=== PATIENT | male | born 1940 | race Caucasian/White ===

== ENCOUNTER 2018-11-11 02:40 | Inpatient (IN) | payer MEDICARE, BC ==
[~2018-11-11] VITALS: Ht 165.1 cm; Wt 59.1 kg
[2018-11-11] VITALS (18 sets, daily range): BP systolic 103–137; BP diastolic 44–85; Ht 165.1 cm; Wt 59.1 kg
[2018-11-11] MEDS ORDERED: COENZYME Q10100 MG PO (02:47)
[2018-11-11] MEDS ORDERED: LASIX80 MG PO (02:47)
[2018-11-11] MEDS ORDERED: HUMALOG 30100 UNITS/ SC (02:48)
[2018-11-11] MEDS ORDERED: NEURONTIN 300300 MG PO (02:48)
[2018-11-11] MEDS ORDERED: HYDRALAZINE HCL25 MG PO (02:49)
[2018-11-11] MEDS ORDERED: HYDROCODON-ACE1 EAC7 PO (02:49)
[2018-11-11] MEDS ORDERED: LANTUS INSULIN10 ML SC (02:49)
[2018-11-11] MEDS ORDERED: ISOSORBIDE DINI30 MG PO (02:50)
[2018-11-11] MEDS ORDERED: MEGACE400 MG/10 PO (02:50)
[2018-11-11] MEDS ORDERED: FLOMAX0.4 MG PO (02:52)
[2018-11-11] MEDS ORDERED: TOPROL XL100 MG PO (02:52)
[2018-11-11] MEDS ORDERED: PROTONIX40 MG PO (02:52)
[2018-11-11] MEDS ORDERED: COUMADIN2 MG (02:52)
[2018-11-11 03:21] LABS: HEMATOCRIT 29.2 % (42.0-54.0); HEMOGLOBIN 8.9 g/dL (13.5-17.5); MCH 29.4 pg (26.0-34.0); MCHC 30.5 g/dL (31.0-37.0); MCV 96.4 fL (80.0-100.0); MEAN PLATELET VOLUME 9.8 fL (7.4-10.4); PLATELET COUNT 216 10x3/uL (130-400); RBC 3.03 10x6/uL (4.20-6.10); RDW 18.8 % (11.5-14.5); WBC 20.5 10x3/uL (4.8-10.8)
[2018-11-11 03:34] LABS: APPEARANCE CLOUDY (CLEAR); COLOR YELLOW (YELLOW)
[2018-11-11 03:35] LABS: BACTERIA MODERATE /hpf (NONE SEEN); BILIRUBIN NEGATIVE (NEGATIVE); EPITHELIAL CELLS NSEEN /hpf (0-5); GLUCOSE NEGATIVE (NEGATIVE); KETONE NEGATIVE (NEGATIVE); NITRITE NEGATIVE (NEGATIVE); PROTEIN 1+ mg/dL (NEGATIVE); RED CELLS - URINE 0-5 /hpf (0-5); SPECIFIC GRAVITY 1.015 (1.005-1.020); UROBILINOGEN NORMAL (NORMAL); WHITE CELLS - URINE >50 /hpf (0-5)
[2018-11-11 03:44] LABS: ALBUMIN 2.5 g/dL (3.4-5.0); ALKALINE PHOSPHATASE 217 U/L (46-116); ALT (SGPT) 22 U/L (10-68); BILIRUBIN - TOTAL 0.67 mg/dL (0.2-1.3); CALC OSMOLALITY 291 mosm/kg (275-300); CALCIUM 8.8 mg/dL (8.5-10.1); CARBON DIOXIDE 28.1 mmol/L (21.0-32.0); CHLORIDE - SERUM 100 mmol/L (98-107); CREATININE - SERUM 2.4 mg/dL (0.6-1.3); GLUCOSE 187 mg/dL (74-106); POTASSIUM - SERUM 4.7 mmol/L (3.5-5.1); PROTEIN - SERUM 6.7 g/dL (6.4-8.2); SODIUM 137 mmol/L (136-145); UREA NITROGEN 48 mg/dL (7-18); eGFR NON AFRICAN AMERICAN 28 mL/min (90-120)
[2018-11-11 03:45] LABS: LYMPHOCYTES 4 % (15-50); MONOCYTES 7 % (2-11); NEUTROPHILS 85 % (40-80); PLATELET ESTIMATE NORMAL
[2018-11-11 03:46] LABS: KETONE - SERUM NEGATIVE (NEGATIVE)
[2018-11-11 03:48] LABS: CKMB 2.5 U/L (0.0-3.6); CREATINE KINASE 33 UL (21-232); MAGNESIUM - SERUM 2.3 mg/dL (1.8-2.4)
[2018-11-11 03:50] LABS: PRO BNP 46691 pg/mL (0-450)
[2018-11-11 03:56] LABS: TROPONIN-I 0.116 ng/mL (0.000-0.060)
--- NOTE | 2018-11-11 04:30 | NUR ---
PT ATTEMPTED TO GET UP. FOUND SITTING IN ROLLING CHAIR JULIO TUBING STRETCHED. 0 DRAINAGE AND DISPLACED. REPLACED JULIO. SMALL AMOUNT OF URINARY OUTPUT
--- NOTE | 2018-11-11 07:15 | NUR ---
ADMITTED FROM ER PER STRETCHER. TRANSFERED TO BED PER STAFF. AWAKE, DOES REMEMBER WHEN HE HAD DIALYSIS. SKIN WARM AND DRY. RIGHT [facility]YS[facility] CATH DRESSING DRY AND INTACT. SALINE LOCKED. RIGHT WRIST IV INFUSING WITH ABT. DENIES PAIN. PACEMAKER NOTED ON LEFT CHEST. MONITOR PACER RHYTHM. JULIO CATH PATENT. OXYGEN MASK ON AT 15 LITERS. NO DISTRESS NOTED. LOWER LEGS DEEP RED COLOR. GNENERALIZED EDEMA ALL OVER NOTED. COCCYX 1 CM OPEN AREA NOTED WITH REDNESS NOTED. MEDIPLEX PLACED
[2018-11-11 07:43] LABS: % SATURATION 12 % (15-55); IRON 18 ug/dl (35-150); TOTAL IRON BIND CAPACITY 145 ug/dl (260-445); UNSAT IRON BIND CAPACITY 127 ug/dl (150-375)
[2018-11-11 07:45] LABS: INR 3.15 (0.85-1.17); PROTIME 31.6 SECONDS (11.6-15.0)
--- NOTE | 2018-11-11 09:15 | NUR ---
TO CT SCAN PER BED WITH NURSE.
[2018-11-11 09:21] LABS: CREATINE KINASE 80 UL (21-232)
--- NOTE | 2018-11-11 09:30 | NUR ---
RETURNED TO ROOM. DID COMPLAINT OF SHORTNESS OF BREATH FROM LAYING FLAT IN CT SCAN
--- NOTE | 2018-11-11 10:30 | NUR ---
VENOUS DOPPLER AND ECHO COMPLETED
--- NOTE | 2018-11-11 12:30 | NUR ---
Meal given, meds as ordered. Echo complete. Denies needs at this time. Asking about but otherwise no changes. Cont with poc.
--- NOTE | 2018-11-11 14:41 | NUR ---
New IV to left upper arm started. Family in room. Pt denies needs.
[2018-11-11 15:17] LABS: CKMB 2.4 U/L (0.0-3.6); CREATINE KINASE 43 UL (21-232)
[2018-11-11 15:18] LABS: TROPONIN-I 0.078 ng/mL (0.000-0.060)
--- NOTE | 2018-11-11 18:01 | NUR ---
medications given. Pt denies needs. cont with poc
--- NOTE | 2018-11-11 19:15 | NUR ---
REPORT RECEIVED INITIAL ASSESSMENT COMPLETE. PT ASKING TO GET OOB C/O BED BEING UNCOMFORTABLE. INFORMED PT NOT SAFE AT THIS TIME TO GET OOB SECONDARY TO RESP DISTRESS AND SOB WITH EXERTION. ALSO INFORMED NURSE WAS ON WAY TO DIALYZE NEXT. REPOSITIONED PT UP IN BED AND PILLOWS PLACED PT NOT HAPPY UNABLE TO GET OOB BUT DID SAY REPOSITIONING DID HELP.
[2018-11-11 20:11] LABS: CKMB 2.9 U/L (0.0-3.6); CREATINE KINASE 41 UL (21-232)
[2018-11-11 20:14] LABS: TROPONIN-I 0.084 ng/mL (0.000-0.060)
--- NOTE | 2018-11-11 20:15 | NUR ---
LAB CALLED TROPONIN LEVEL SLIGHTLY HIGHER THAN PREVIOUS SEE LAB RESULTS PAGED DR MIN CARDIOLOGY SPORTS MANAGER. INFORMED OF INCREASE HE STATED NO NEED TO DO ANY FURTHER CARDIAC ENZYME LEVELS NO OTHER ORDERS AT THIS TIME. WHEN CHECKED ORDERS THAT WAS THE LAST OF SERIES.
--- NOTE | 2018-11-11 21:36 | NUR ---
PT MEDICATED WITH PRN PAIN MED SEE EMAR C/O PAIN TO LEGS AND FEET, ELEVATED HEELS OFF TO RELIEVE PRESSURE
--- NOTE | 2018-11-11 22:20 | NUR ---
DIALYSIS COMPLETE PER HD NURSE PULLED 2 LITERS OFF PT TOLERTED WELL. LASIX DUE NOW WAS HELD SINCE DIALYSIS JUST COMPLETED. PRN MED EFFECTIVE PT RESTING QUIETLY WITH EYES CLOSED
--- NOTE | 2018-11-11 22:45 | NUR ---
PAIN MED EFFECTIVE PT STATES IT HELPED
--- NOTE | 2018-11-11 23:00 | NUR ---
REASSESSMENT COMPLETED. PT ORIENTED TO PERSON AND PLACE NOT TIME AND SITUATION AT REST NOT SOB BUT WITH TALKING FOR ANY LENGTH OF TIME OR WITH TURNING DOES BECOME WINDED AND SATS HAVE DROPPED TO 88-92%. COMES BACK UP QUICKLY AFTER REMINDING PT TO BREATHE SLOW AND DEEP.
[2018-11-12] VITALS (18 sets, daily range): BP systolic 79–141; BP diastolic 50–70
--- NOTE | 2018-11-12 01:00 | NUR ---
CHECKED IN ON PATIENT RESTING QUIETLY WITH EYES CLOSED NO DISTRESS NOTED CPOC
--- NOTE | 2018-11-12 03:00 | NUR ---
REASSESSMENT CONPLETE PT C/O BEING COLD TEMP NORMAL WARM BLANKET FROM WARMER GIVEN PT DENIES PAIN SAYS PAIN PILL HELPED EARLIER. NO CP OR SOB AT REST. CPOC
[2018-11-12 03:40] LABS: BASOPHILS 0.1 % (0-2); EOSINOPHILS 0.6 % (0-7); HEMATOCRIT 29.3 % (42.0-54.0); IMMATURE GRANULOCYTES 0.4 % (0-5); LYMPHOCYTES 4.2 % (15-50); MCH 29.7 pg (26.0-34.0); MCHC 30.7 g/dL (31.0-37.0); MCV 96.7 fL (80.0-100.0); MEAN PLATELET VOLUME 9.5 fL (7.4-10.4); NEUTROPHILS 85.7 % (40-80); PLATELET COUNT 215 10x3/uL (130-400); RBC 3.03 10x6/uL (4.20-6.10); RDW 18.7 % (11.5-14.5); WBC 18.3 10x3/uL (4.8-10.8)
[2018-11-12 03:50] LABS: ANION GAP 11.5 mmol/L (8-16); CALCIUM 8.6 mg/dL (8.5-10.1); CREATININE - SERUM 2.1 mg/dL (0.6-1.3); POTASSIUM - SERUM 4.5 mmol/L (3.5-5.1)
--- NOTE | 2018-11-12 04:41 | NUR ---
PT CALLING FOR NURSE ASKING FOR PAIN PILL HIS BACK AND LEGS ARE HURTING MEDICATED WITH PRN MED SEE EMAR
--- NOTE | 2018-11-12 05:42 | NUR ---
MARINO HUMPHREY RENAL HEALTH AND WELLNESS MANAGER ROUNDING ON PTS.
--- NOTE | 2018-11-12 08:01 | NUR ---
Received patient. VSS. Assessment complete. Reposition for comfort. Up in bed eating breakfast. Cont with poc
--- NOTE | 2018-11-12 10:07 | NUR ---
Patient resting queitly. VSS. No changes in assessment . Cont with poc
[2018-11-12 11:06] LABS: INR 2.97 (0.85-1.17); PROTIME 30.1 SECONDS (11.6-15.0)
--- NOTE | 2018-11-12 16:25 | NUR ---
Report given to Alyssa Stahl. Pt transferred to the floor via bed with family at side.
--- NOTE | 2018-11-12 16:45 | NUR ---
RECEIVED PT FROM ICU. PT IS AAO AND UP WITH ASSIST. FAMILY AT BEDSIDE. PT CURRENTLY LYING SEMI FOWLERS. CALL LIGHT W/I REACH. RR EVEN AND UNLABORED ON 3L HIGH FLOW NC. L.FOR PIV IS SALINE LOCKED. VSS AND WNL. NO S/S OF DISTRESS NOTED. PT DENIES ANY NEEDS AT THIS TIME. WILL CTM.
--- NOTE | 2018-11-12 18:16 | NUR ---
PT ASSSITED ON AND OFF BEDPAN WHERE PT WAS UNSUCCESSFUL IN HAVING A BM. MEPILEX DRESSING TO COCCYX IN PLACE. MERREM CURRENTLY INFUSING VIA L.FOR PIV. RR EVEN AND UNLABORED ON 3. NO S/S OF DISTRESS NOTED. PT DENIES ANY NEEDS AT THIS TIME. WILL PASS REPORT AND CONTINUE WITH POC.
--- NOTE | 2018-11-12 21:30 | NUR ---
PT FSBS 75 ORANGE JUICE AND COFFEE PROVIDED VA PT REQUEST. WILL CTM.
--- NOTE | 2018-11-13 00:12 | NUR ---
PT C/O PAIN IN ABDOMEN. REPOSITION PT AND ADMINISTER NORCO-5. PT VOICED THANKS. WILL CTM.
[2018-11-13 03:43] VITALS: BP 117/43
--- NOTE | 2018-11-13 05:09 | NUR ---
HELP PT SIT UP IN ON EDGE OF THE BED, PT STATES IT HELPS RELIEVE PRESSURE OFF HIS ABDOMEN. WILL CPOC.
[2018-11-13 05:57] LABS: BASOPHILS 0.1 % (0-2); EOSINOPHILS 0.9 % (0-7); HEMATOCRIT 28.3 % (42.0-54.0); HEMOGLOBIN 8.7 g/dL (13.5-17.5); IMMATURE GRANULOCYTES 0.4 % (0-5); LYMPHOCYTES 4.2 % (15-50); MCH 29.7 pg (26.0-34.0); MCHC 30.7 g/dL (31.0-37.0); MCV 96.6 fL (80.0-100.0); MEAN PLATELET VOLUME 9.7 fL (7.4-10.4); MONOCYTES 9.5 % (2-11); NEUTROPHILS 84.9 % (40-80); PLATELET COUNT 198 10x3/uL (130-400); RBC 2.93 10x6/uL (4.20-6.10); RDW 18.6 % (11.5-14.5); WBC 16.3 10x3/uL (4.8-10.8)
[2018-11-13 07:38] VITALS: BP 109/46
[2018-11-13 07:55] LABS: ANION GAP 16.7 mmol/L (8-16); CALCIUM 8.4 mg/dL (8.5-10.1); CARBON DIOXIDE 23.5 mmol/L (21.0-32.0)
[2018-11-13 07:57] LABS: CREATININE - SERUM 2.8 mg/dL (0.6-1.3)
[2018-11-13 07:58] LABS: POTASSIUM - SERUM 5.2 mmol/L (3.5-5.1)
--- NOTE | 2018-11-13 09:52 | NUR ---
Nutrition follow-up: Pt receiving an ADA diet PO intake 75-90% of meals Pt with ESRD Labs reviewed; K is now high Wt: 166# +BM RDN changing diet order to Renal ADA consistent CHO due to elevated K. RDN following.
[2018-11-13 11:56] VITALS: BP 137/63
--- NOTE | 2018-11-13 16:00 | NUR ---
SLEEPING IN BED. NO SIGNS OF DISTRESS. RESPIRATIONS NONLABORED. SINUS RHYTHM BBB 94 ON TELEMETRY. CONTINUE PLAN OF CARE AND SAFETY PRECAUTIONS.
[2018-11-13 16:14] VITALS: BP 126/56
--- NOTE | 2018-11-13 19:05 | NUR ---
PT SITTING UP AND TOLERATING WELL. LUNGS ARE DEMINISHED. SKIN WARM AND DRY AND BOWEL SOUNDS X4 FLUIDS TO LEFT FA...SALINE LOCKED AT THIS TIME. BED IS LOWM AND LOCKED...CALL LIGHT IS IN REACH
[2018-11-13 20:00] VITALS: BP 111/48
[2018-11-14] VITALS: BP 127/61
[2018-11-14 04:00] VITALS: BP 125/64
[2018-11-14 06:34] LABS: ANION GAP 18.6 mmol/L (8-16); CALCIUM 8.2 mg/dL (8.5-10.1); CARBON DIOXIDE 24.8 mmol/L (21.0-32.0); CREATININE - SERUM 3.1 mg/dL (0.6-1.3); POTASSIUM - SERUM 5.4 mmol/L (3.5-5.1)
[2018-11-14 06:52] LABS: BASOPHILS 0.1 % (0-2); EOSINOPHILS 1.6 % (0-7); HEMATOCRIT 27.9 % (42.0-54.0); HEMOGLOBIN 8.6 g/dL (13.5-17.5); IMMATURE GRANULOCYTES 0.3 % (0-5); LYMPHOCYTES 9.6 % (15-50); MCH 29.5 pg (26.0-34.0); MCHC 30.8 g/dL (31.0-37.0); MCV 95.5 fL (80.0-100.0); MEAN PLATELET VOLUME 9.7 fL (7.4-10.4); MONOCYTES 6.4 % (2-11); PLATELET COUNT 222 10x3/uL (130-400); RBC 2.92 10x6/uL (4.20-6.10); RDW 18.3 % (11.5-14.5); WBC 13.4 10x3/uL (4.8-10.8)
[2018-11-14 07:54] VITALS: BP 128/57
[2018-11-14 17:02] VITALS: BP 110/48
--- NOTE | 2018-11-14 17:10 | NUR ---
ALERT AND ORIENTED X4. ASSIST UP OOB TO CHAIR FOR DINNER. SINUS TACH WITH PACED BEATS ON TELEMETRY 104. VS STABLE. DENIES ANY NEEDS AT THIS TIME. CONTINUE PLAN OF CARE AND SAFETY PRECAUTIONS.
--- NOTE | 2018-11-14 19:00 | NUR ---
AWAKE AND ALERT JULIO TO GRAVITY IV TO LEFT FA SL BED IS LOW AND LOCKED AND CALL LIGHT IS IN REACH SKIN WARM AND DRY BOWEL SOUNDS X4 PRT REPORTS SEVERAL BMS TODAY
[2018-11-14 20:00] VITALS: BP 112/48
[2018-11-15] VITALS: BP 110/46
--- NOTE | 2018-11-15 02:37 | NUR ---
I have reviewed this patient and I concur with the Shift Assessment completed by the Licensed Practical Nurse today this shift.
[2018-11-15 04:00] VITALS: BP 105/49
[2018-11-15 05:21] LABS: BASOPHILS 0.1 % (0-2); EOSINOPHILS 1.6 % (0-7); HEMATOCRIT 25.7 % (42.0-54.0); IMMATURE GRANULOCYTES 0.4 % (0-5); LYMPHOCYTES 10.5 % (15-50); MCH 29.5 pg (26.0-34.0); MCHC 31.1 g/dL (31.0-37.0); MCV 94.8 fL (80.0-100.0); MEAN PLATELET VOLUME 9.5 fL (7.4-10.4); MONOCYTES 8.4 % (2-11); RBC 2.71 10x6/uL (4.20-6.10); RDW 18.2 % (11.5-14.5); WBC 12.9 10x3/uL (4.8-10.8)
[2018-11-15 05:52] LABS: ANION GAP 11.7 mmol/L (8-16); CALCIUM 8.2 mg/dL (8.5-10.1); CARBON DIOXIDE 27.4 mmol/L (21.0-32.0); CREATININE - SERUM 2.6 mg/dL (0.6-1.3); VANCOMYCIN - TROUGH 15.2 ug/mL (10.0-20.0)
[2018-11-15 05:58] LABS: PLATELET COUNT 177 10x3/uL (130-400)
[2018-11-15 06:06] LABS: POTASSIUM - SERUM 4.1 mmol/L (3.5-5.1)
--- NOTE | 2018-11-15 07:51 | NUR ---
REPORT RECEIVED. WILL CONTINUE WITH POC. PT CURRENTLY SITTING UP IN CHAIR. CALL LIGHT W/I REACH. PT IS AAO AND UP WITH ASSIST. RR EVEN AND UNLABORED ON 3L HIGH FLOW NC. L.HAND PIV IS SALINE LOCKED. NO S/S OF DISTRESS NOTED. PT DENIES ANY NEEDS. WILL CTM.
[2018-11-15 08:07] VITALS: BP 110/45
[2018-11-15 08:14] LABS: HEPATITIS C ANTIBODY <0.1 S/CO RAT (0.0-0.9)
--- NOTE | 2018-11-15 11:04 | MORECARE ---
CASE MANAGEMENT DISCHARGE SUMMARY PATIENT: DEEPALI FENG UNIT: [id number] ADM DATE: 11/11/18 AGE: 78 : 39 SEX: M ROOM/BED: D.2130 AUTHOR: STEVEN BERRIOS PHYSICIAN: REFERRING PHYSICIAN: DEO WHITE MD DATE OF SERVICE: 11/15/18 Discharge Plan Patient Name: DEEPALI FENG Facility: [facility]:[place] : 1940 Planned Disposition: Custodial Facility Anticipated Discharge Date: 11/15/18 Discharge Date: Expected LOS: 4 Initial Reviewer: [email or web address] Initial Review Date: 11/14/2018 Generated: 11/15/18 12:04 pm Patient Name: DEEPALI FENG Page 76636 at 1104 All edits/amendments must be made on the electronic document DICTATION DATE: 11/15/18 110 CATERING SERVICE MANAGER: SUJEY 11/15/18 1104 RPT#: [id number] DC DATE: STATUS: ADM IN [facility] [address] [place] [address] END OF REPORT
--- NOTE | 2018-11-15 11:11 | MORECARE ---
CASE MANAGEMENT DISCHARGE SUMMARY PATIENT: DEEPALI FENG UNIT: [id number] ADM DATE: 11/11/18 AGE: 78 : 39 SEX: M ROOM/BED: D.2130 AUTHOR: STEVEN BERRIOS PHYSICIAN: REFERRING PHYSICIAN: DEO WHITE MD DATE OF SERVICE: 11/15/18 Discharge Plan Patient Name: DEEPALI FENG Facility: [facility]:[place] : 1940 Planned Disposition: Custodial Facility Anticipated Discharge Date: 11/15/18 Discharge Date: Expected LOS: 4 Initial Reviewer: [email or web address] Initial Review Date: 11/14/2018 Generated: 11/15/18 12:11 pm DCPIA - Discharge Planning Initial Assessment Updated by [email or web address]: Corey Whitten on 11/15/18 11:10 am * Is the patient Alert and Oriented? Yes * How many steps to enter\exit or inside your home? * PCP DR. ALEXANDRIA MALONE [place] * Pharmacy [facility] IN [place] * Preadmission Environment Custodial Facility * Facility Name [facility] (1 DAY) * ADLs Partial Dependent * Partial ADLs (Assistance needed) Ambulation Bathing Medication Management Transfers * Equipment Oxygen Rolling Walker * Other Equipment ROLLATOR WALKER, HOME AND PORTABLE OXYGEN AT HOME BY [facility] IN [place]. * List name and contact numbers for known caregivers / representatives who currently or will assist patient after discharge: CANELO FENG, * Verbal permission to speak to the caregivers and representatives has been obtained from the patient. N/A * Community resources currently utilized Other * Please name any agencies selected above. OUTPATIENT DIALYSIS, MWF, [facility]; NEVER HAD FIRST DIALYSIS THERE. * Additional services required to return to the preadmission environment? Yes * Can the patient safely return to the preadmission environment? Yes * Has this patient been hospitalized within the prior 30 days at any hospital? Yes Last DP export: 11/15/18 10:04 a Patient Name: DEEPALI FENG Page 93618 at 1111 All edits/amendments must be made on the electronic document DICTATION DATE: 11/15/18 1111 DIESEL DRAGLINE OPERATOR: SUJEY 11/15/18 1111 RPT#: [id number] DC DATE: STATUS: ADM IN [facility] [address] [facility] [place] [address] END OF REPORT
[2018-11-15 11:13] LABS: FOLATE (FOLIC ACID) - SERUM 9.5 ng/mL (>3.0)
--- NOTE | 2018-11-15 11:27 | MORECARE ---
CASE MANAGEMENT DISCHARGE SUMMARY PATIENT: DEEPALI FENG UNIT: [id number] ADM DATE: 11/11/18 AGE: 78 : 39 SEX: M ROOM/BED: D.2130 AUTHOR: AGUSTINA,DOC PHYSICIAN: REFERRING PHYSICIAN: DEO WHITE MD DATE OF SERVICE: 11/15/18 Discharge Plan Patient Name: DEEPALI FENG Facility: [facility]:[place] : 1940 Planned Disposition: Half-Way Facility Anticipated Discharge Date: 11/15/18 Discharge Date: Expected LOS: 4 Initial Reviewer: [email or web address] Initial Review Date: 11/14/2018 Generated: 11/15/18 12:26 pm Comments DCP- Discharge Planning Updated by [email or web address]: Corey Whitten on 11/15/18 10:[address] Patient Name: DEEPALI FENG Admission Status: ER Accout number: [id number] Admission Date: 11-11-2018 : 1940 Admission Diagnosis: Attending: DEO WHITE Current LOS: 4 Anticipated DC Date: 11-15-2018 Planned Disposition: Half-Way Facility Primary Insurance: MEDICARE A & B PLANNED EXTERNAL PROVIDER: [facility], MEDICARE REHAB BED Discharge Planning Comments: LATE ENTRY FROM -18, 0815 HOURS. CM RECEIVED CALL FROM PT'S SPOUSE, CANELO, . CANELO STATES THE GIRL IN ICU TOLD HER THAT A CLIENT PROFESSIONAL WOULD CALL HER FIRST THING TODAY TO DISCUSS DISCHARGE PLANNING. CM EXPLAINED THAT CM WAS NOT INFORMED OF THIS AND CM DOES NOT OFFICIALLY START WORK UNTIL 0830AM. CM ASKED WHAT CAN BE DONE FOR THEM. CANELO STATES THAT PT WAS IN INPATIENT REHAB AT [place], WAS SENT TO [facility] AND DIALYSIS WAS ARRANGED IN [place]. PT GOT SICK AND WENT TO [place]. THEY DO NOT WANT TO GO BACK TO [facility] BECAUSE IT IS TOO OLD, PT DOES NOT HAVE A PRIVATE ROOM AND IT SEEMS TOO MUCH LIKE A SNF INSTEAD OF REHAB. CM EXPLAINED CORRECTION REHAB OPTIONS AND LOCATIONS. CANELO STATES THAT [place] DID NOT HAVE DIALYSIS CHAIR AVAILABLE AND THAT THEY WOULD REALLY LIKE TO RETURN TO [place] IF POSSIBLE THAT IS WHERE CANELO AND PT LIVE AND PT JUST NEEDS REHAB TO BE ABLE TO WALK PRIOR TO COMING BACK HOME. THEY HAVE NO CHOICE ON [facility] LONG IT IS A "NICE" REHAB AND NOT RADIO TIME SALESPERSON CARE SNF. THEY WANT A PRIVATE ROOM AND TO BE CLOSE TO [place] POSSIBLE. CHOICE COMPLETED FOR NO CORRECTION FACILITY PREFERENCE. CANELO PROVIDED HER CONTACT NUMBERS: CANELO FENG, SPOUSE HOME [phone] CELL [phone] CM SPOKE TO SOFIA OF [facility] AND INFORMED THAT PT WILL NOT BE RETURNING TO [facility], REQUESTED ANOTHER SKILLED REHAB WITH PRIVATE ROOM THAT IS "NICE" AND CAN ACCOMODATE DIALYSIS. SOFIA WILL EXPLORE OPTIONS FOR PT. ON 11-15-18 AT ABOUT 0830 HOURS, CHACHO SPOKE TO SIN DUENAS OF [facility] WHO WILL SEND REFERRAL TO [facility]. CHACHO NOTIFIED SOFIA WHO REPORTS HAVING SKILLED REHAB IN [place] CALLED [facility] THAT SHE IS PRETTY SURE CAN ACCOMODATE DIALYSIS TRANSPORTATION. CM FAXED REFERRAL TO [facility] VIA SOFIA AT [phone]. CM WAITING ADMISSION DETERMINATION FROM [facility] AND OUTPATIENT DIALYSIS CHAIR DETERMINATION FOR [facility]. Manager Privacy: Corey Whitten DCPIA - Discharge Planning Initial Assessment Updated by [email or web address]: Corey Whitten on 11/15/18 11:22 am * Is the patient Alert and Oriented? Yes * How many steps to enter\\exit or inside your home? * PCP DR. ALEXANDRIA MALONE [place] * Pharmacy [facility] IN [place] * Preadmission Environment Half-Way Facility * Facility Name [facility] IN [place] (1 DAY) * ADLs Partial Dependent * Partial ADLs (Assistance needed) Ambulation Bathing Medication Management Transfers * Equipment Oxygen Rolling Walker * Other Equipment ROLLATOR WALKER, HOME AND PORTABLE OXYGEN AT HOME BY [facility] IN [place]. * List name and contact numbers for known caregivers / representatives who currently or will assist patient after discharge: CANELO FENG, CELL [phone] * Verbal permission to speak to the caregivers and representatives has been obtained from the patient. N/A * Community resources currently utilized Other * Please name any agencies selected above. OUTPATIENT DIALYSIS, [facility], [place] [facility]; NEVER HAD FIRST DIALYSIS THERE. * Additional services required to return to the preadmission environment? Yes * Can the patient safely return to the preadmission environment? Yes * Has this patient been hospitalized within the prior 30 days at any hospital? Yes Last DP export: 11/15/18 10:11 a Patient Name: DEEPALI FENG Page 18200 at 1127 All edits/amendments must be made on the electronic document DICTATION DATE: 11/15/181125 BRIEFCASE SEWER: SUJEY 11/15/181125 RPT#: [id number] DC DATE: STATUS: ADM IN [facility] [address] [place] [address] END OF REPORT
--- NOTE | 2018-11-15 11:36 | MORECARE ---
CASE MANAGEMENT DISCHARGE SUMMARY PATIENT: DEEPALI FENG UNIT: [id number] ADM DATE: 11/11/18 AGE: 78 : 39 SEX: M ROOM/BED: D.2130 AUTHOR: AGUSTINA,DOC PHYSICIAN: REFERRING PHYSICIAN: DEO WHITE MD DATE OF SERVICE: 11/15/18 Discharge Plan Patient Name: DEEPALI FENG Facility: [facility]:[place] : 1940 Planned Disposition: Prison Facility Anticipated Discharge Date: 11/15/18 Discharge Date: Expected LOS: 4 Initial Reviewer: [email or web address] Initial Review Date: 11/14/2018 Generated: 11/15/18 12:36 pm Comments DCP- Discharge Planning Updated by [email or web address]: Corey Whitten on 11/15/18 10:[address] Patient Name: DEEPALI FENG Admission Status: ER Accout number: [id number] Admission Date: 11-11-2018 : 1940 Admission Diagnosis: Attending: DEO WHITE Current LOS: 4 Anticipated DC Date: 11-15-2018 Planned Disposition: Prison Facility Primary Insurance: MEDICARE A & B PLANNED EXTERNAL PROVIDER: [facility], MEDICARE REHAB BED Discharge Planning Comments: LATE ENTRY FROM -18, 0815 HOURS. CM RECEIVED CALL FROM PT'S SPOUSE, CANELO, . CANELO STATES THE GIRL IN ICU TOLD HER THAT A FITTINGS FINISHER WOULD CALL HER FIRST THING TODAY TO DISCUSS DISCHARGE PLANNING. CM EXPLAINED THAT CM WAS NOT INFORMED OF THIS AND CM DOES NOT OFFICIALLY START WORK UNTIL 0830AM. CM ASKED WHAT CAN BE DONE FOR THEM. CANELO STATES THAT PT WAS IN INPATIENT REHAB AT [place], WAS SENT TO [facility] AND DIALYSIS WAS ARRANGED IN [place]. PT GOT SICK AND WENT TO [place]. THEY DO NOT WANT TO GO BACK TO [facility] BECAUSE IT IS TOO OLD, PT DOES NOT HAVE A PRIVATE ROOM AND IT SEEMS TOO MUCH LIKE A ASSISTED INSTEAD OF REHAB. CM EXPLAINED [facility] OPTIONS AND LOCATIONS. CANELO STATES THAT [place] DID NOT HAVE DIALYSIS CHAIR AVAILABLE AND THAT THEY WOULD REALLY LIKE TO RETURN TO [place] IF POSSIBLE THAT IS WHERE CANELO AND PT LIVE AND PT JUST NEEDS REHAB TO BE ABLE TO WALK PRIOR TO COMING BACK HOME. THEY HAVE NO CHOICE ON [facility] LONG IT IS A "NICE" REHAB AND NOT TRUCK SERVICE MANAGER CARE ASSISTED. THEY WANT A PRIVATE ROOM AND TO BE CLOSE TO [place] POSSIBLE. CHOICE COMPLETED FOR NO [facility] FACILITY PREFERENCE. CANELO PROVIDED HER CONTACT NUMBERS: CANELO FENG, SPOUSE HOME [phone] CELL [phone] CM SPOKE TO SOFIA OF [facility] AND INFORMED THAT PT WILL NOT BE RETURNING TO [facility], REQUESTED ANOTHER SKILLED REHAB WITH PRIVATE ROOM THAT IS "NICE" AND CAN ACCOMODATE DIALYSIS. SOFIA WILL EXPLORE OPTIONS FOR PT. ON 11-15-18 AT ABOUT 0830 HOURS, CHACHO SPOKE TO SIN DUENAS OF [facility] WHO WILL SEND REFERRAL TO [facility]. CHACHO NOTIFIED SOFIA WHO REPORTS HAVING SKILLED REHAB IN [place] CALLED [facility] THAT SHE IS PRETTY SURE CAN ACCOMODATE DIALYSIS TRANSPORTATION. CM FAXED REFERRAL TO [facility] VIA SOFIA AT [phone]. CM WAITING ADMISSION DETERMINATION FROM [facility] AND OUTPATIENT DIALYSIS CHAIR DETERMINATION FOR [facility]. Paper Cone Maker: Corey Whitten DCPIA - Discharge Planning Initial Assessment Updated by [email or web address]: Corey Whitten on 11/15/18 11:22 am * Is the patient Alert and Oriented? Yes * How many steps to enter\\exit or inside your home? * PCP DR. ALEXANDRIA MALONE [place] * Pharmacy [facility] IN [place] * Preadmission Environment Prison Facility * Facility Name [facility] IN [place] (1 DAY) * ADLs Partial Dependent * Partial ADLs (Assistance needed) Ambulation Bathing Medication Management Transfers * Equipment Oxygen Rolling Walker * Other Equipment ROLLATOR WALKER, HOME AND PORTABLE OXYGEN AT HOME BY [facility] IN [place]. * List name and contact numbers for known caregivers / representatives who currently or will assist patient after discharge: CANELO FENG, CELL [phone] * Verbal permission to speak to the caregivers and representatives has been obtained from the patient. N/A * Community resources currently utilized Other * Please name any agencies selected above. OUTPATIENT DIALYSIS, [facility], [place] [facility]; NEVER HAD FIRST DIALYSIS THERE. * Additional services required to return to the preadmission environment? Yes * Can the patient safely return to the preadmission environment? Yes * Has this patient been hospitalized within the prior 30 days at any hospital? Yes External Providers External Provider: [facility] Next Contact Date: 11/15/2018 Service Request Date: Service Type: Resolution: Reviewer: Comments: Last DP export: 11/15/18 10:27 a Patient Name: DEEPALI FENG Page [id number] at 1136 All edits/amendments must be made on the electronic document DICTATION DATE: 11/15/18 1136 BOILERMAKER'S ASSISTANT: SUJEY 11/15/18 1136 RPT#: [id number] DC DATE: STATUS: ADM IN [facility] [address] [place] [address] END OF REPORT
--- NOTE | 2018-11-15 14:08 | NUR ---
I have reviewed this patient and I concur with the Shift Assessment completed by the Licensed Practical Nurse today this shift.
[2018-11-15 16:54] VITALS: BP 125/42
--- NOTE | 2018-11-15 19:47 | NUR ---
PT SITTING UP IN CHAIR. ASKING TO GO TO BED SIDE COMMODE. ASSISTED PT, PT WILL USE CALL LIGHT WHEN DONE TO ALERT NURSE. WILL CPOC
[2018-11-15 20:00] VITALS: BP 108/45
--- NOTE | 2018-11-15 20:49 | NUR ---
FSBS 248 8 UNITS GIVEN ORDERED, PT DENIES ANY NEEDS,. STATES 2 BM LOOSE SINCE 1900 STATES STOMACH FELS BETTER NOW. PT SITTING UP IN CHAIR. DECLINES ASSIST LAYING IN BED. CALL LIGHT IN REACH. WILL CPOC
--- NOTE | 2018-11-15 21:07 | NUR ---
SULEMACO GIVEN. PT REFUSES NEUROTIN STATES HE FEELS IT IS MAKING HIM BLIND. PT SITTING IN CHAIR. CALL LIGHT IN REACH. WILL CPOC
[2018-11-16] VITALS: BP 113/52
--- NOTE | 2018-11-16 00:24 | NUR ---
PT ASLEEP. RESP EVEN AND UNLABORED. NO S/S OF DISTRESS. BEDLOW AND CALL LIGHT IN REACH. 4L HIGH FLOW NC. WILL CPOC
--- NOTE | 2018-11-16 03:10 | NUR ---
PT ASLEEP. RESP EVEN AND UNLABORED. 4L NC BEDLOW AND CALL LIGHT IN REACH. NO S/S OF DISTRESS. WILL CPOC
[2018-11-16 04:00] VITALS: BP 128/46
--- NOTE | 2018-11-16 04:58 | NUR ---
PT SITTING UP IN CHAIR. COMPLAINS OF PAIN IN BACK,LEGS AND STOMACH. NORCO GIVEN FOR 8/10 PAIN. PT MORNING PROTONIX AND LASIX GIVEN WELL. PT EATING ICE CHIPS WATCHING TV. WILL CPOC
[2018-11-16 05:23] LABS: BASOPHILS 0.1 % (0-2); EOSINOPHILS 1.2 % (0-7); HEMATOCRIT 25.4 % (42.0-54.0); HEMOGLOBIN 7.8 g/dL (13.5-17.5); IMMATURE GRANULOCYTES 0.5 % (0-5); MCH 29.3 pg (26.0-34.0); MCHC 30.7 g/dL (31.0-37.0); MCV 95.5 fL (80.0-100.0); MEAN PLATELET VOLUME 10.1 fL (7.4-10.4); MONOCYTES 11.1 % (2-11); NEUTROPHILS 82.1 % (40-80); PLATELET COUNT 185 10x3/uL (130-400); RBC 2.66 10x6/uL (4.20-6.10); RDW 18.1 % (11.5-14.5)
[2018-11-16 05:43] LABS: ANION GAP 15.5 mmol/L (8-16); CALCIUM 8.1 mg/dL (8.5-10.1); CARBON DIOXIDE 25.6 mmol/L (21.0-32.0); CREATININE - SERUM 2.4 mg/dL (0.6-1.3); POTASSIUM - SERUM 4.1 mmol/L (3.5-5.1); VANCOMYCIN - TROUGH 21.5 ug/mL (10.0-20.0)
--- NOTE | 2018-11-16 06:19 | NUR ---
FSBS IS 300 HUMILIN 10 UNITS GIVEN ORDERED. PT SITTING ON SIDE OF BED. 4L NC NO S/S OF DISTRESS. BEDLOW AND CALL LIGHT IN REACH. WILL CPOC
--- NOTE | 2018-11-16 07:09 | NUR ---
THELMA WANG REGARDING CONSTIPATION AND SEVERE DISCOMFORT IN ABDOMEN
[2018-11-16 07:34] VITALS: BP 115/70
--- NOTE | 2018-11-16 07:50 | NUR ---
PT SITTING UP ON SIDE OF BED ALERT AND ORIENTED X4. DR. GARCIA IN ROOM WITH PT. PT ABDOMEN DISTENDED AND PT STATES FEELING CRAMPING IN ABDOMEN.PT VITALS ARE STABLE. SWELLING IN LOWER EXTREMITIES BILAT. PT APPEARS TO BE UNCOMFORTABLE. ASSESMENT COMPLETED. BED LOW, CALL LIGHT WITHIN REACH, WILL CONTINUE TO MONITOR.
[2018-11-16 08:01] LABS: % SATURATION 16 % (15-55); IRON 26 ug/dl (35-150); TOTAL IRON BIND CAPACITY 161 ug/dl (260-445); UNSAT IRON BIND CAPACITY 135 ug/dl (150-375)
[2018-11-16 08:13] LABS: ALBUMIN 2.3 g/dL (3.4-5.0); BILIRUBIN - DIRECT 0.2 mg/dL (0.00-0.30); BILIRUBIN - INDIRECT 0.26 mg/dL (0.00-1.00); BILIRUBIN - TOTAL 0.46 mg/dL (0.2-1.3); PROTEIN - SERUM 6.5 g/dL (6.4-8.2)
--- NOTE | 2018-11-16 11:26 | MORECARE ---
CASE MANAGEMENT DISCHARGE SUMMARY PATIENT: DEEPALI FENG UNIT: [id number] ADM DATE: 11/11/18 AGE: 78 : 39 SEX: M ROOM/BED: D.2130 AUTHOR: STEVEN BERRIOS PHYSICIAN: REFERRING PHYSICIAN: DEO WHITE MD DATE OF SERVICE: 11/16/18 Discharge Plan Patient Name: DEEPALI FENG Facility: [facility]:[place] : 1940 Planned Disposition: Custodial Facility Anticipated Discharge Date: 11/16/18 Discharge Date: Expected LOS: 5 Initial Reviewer: [id number] Initial Review Date: 11/14/2018 Generated: 11/16/18 12:26 pm Comments DCP- Discharge Planning Updated by [email or web address]: Corey Naranjo on 11/16/18 10:[address] Patient Name: DEEPALI FENG Encounter No: [id number] : 1940 Primary Insurance: MEDICARE A & B Anticipated DC Date: 11-16-2018 Planned Disposition: Custodial Facility External Planned Provider: [facility] [place], MEDICARE REHAB BED DCP follow-up note: CM RECEIVED MESSAGE FROM SOFIA [facility], THEY WILL ACCEPT IF PT CAN GET INTO OUTPATIENT DIALYSIS UNIT IN [place]. [facility] NOTIFIED BY JULIO C JOEL. PT NOTIFIED IN ROOM, PT IN AGREEMENT WITH REHAB AT [facility]. IMPORTANT MESSAGE FROM MEDICARE PROVIDED AND EXPLAINED. PT ACCEPTED FOR REHAB AT [facility] IN [place]. CM WAITING OUTPATIENT DIALYSIS UNIT ARRANGEMENT IN [place]. COREY NARANJO CASE YANE DCP- Discharge Planning Updated by [id number]: Corey Naranjo on 11/15/18 10:[address] Patient Name: DEEPALI FENG Admission Status: ER Accout number: [id number] Admission Date: 11-11-2018 : 1940 Admission Diagnosis: Attending: DEO WHITE Current LOS: 4 Anticipated DC Date: 11-15-2018 Planned Disposition: Custodial Facility Primary Insurance: MEDICARE A & B [facility] [employer] [facility] [place], MEDICARE REHAB BED Discharge Planning Comments: LATE ENTRY FROM , 0815 HOURS. CM RECEIVED CALL FROM PT'S SPOUSE, CANELO, . CANELO STATES THE GIRL IN ICU TOLD HER THAT A ACLS NURSE WOULD CALL HER FIRST THING TODAY TO DISCUSS DISCHARGE PLANNING. CM EXPLAINED THAT CM WAS NOT INFORMED OF THIS AND CM DOES NOT OFFICIALLY START WORK UNTIL 0830AM. CM ASKED WHAT CAN BE DONE FOR THEM. CANELO STATES THAT PT WAS IN INPATIENT REHAB AT [place], WAS SENT TO [facility] AND DIALYSIS WAS ARRANGED IN [place]. PT GOT SICK AND WENT TO [place]. THEY DO NOT WANT TO GO BACK TO [facility] BECAUSE IT IS TOO OLD, PT DOES NOT HAVE A PRIVATE ROOM AND IT SEEMS TOO MUCH LIKE A CUSTODIAL INSTEAD OF REHAB. CM EXPLAINED SENIOR LIVING REHAB OPTIONS AND LOCATIONS. CANELO STATES THAT [place] DID NOT HAVE DIALYSIS CHAIR AVAILABLE AND THAT THEY WOULD REALLY LIKE TO RETURN TO [place] IF POSSIBLE THAT IS WHERE CANELO AND PT LIVE AND PT JUST NEEDS REHAB TO BE ABLE TO WALK PRIOR TO COMING BACK HOME. THEY HAVE NO CHOICE ON PROVIDER LONG IT IS A "NICE" REHAB AND NOT SAMPLING EXPERT CARE CUSTODIAL. THEY WANT A PRIVATE ROOM AND TO BE CLOSE TO [place] POSSIBLE. CHOICE COMPLETED FOR NO SENIOR LIVING FACILITY PREFERENCE. CANELO PROVIDED HER CONTACT NUMBERS: CANELO FENG, SPOUSE HOME [phone] CELL [phone] CM SPOKE TO SOFIA OF [facility] AND INFORMED THAT PT WILL NOT BE RETURNING TO [facility], REQUESTED ANOTHER SKILLED REHAB WITH PRIVATE ROOM THAT IS "NICE" AND CAN ACCOMODATE DIALYSIS. SOFIA WILL EXPLORE OPTIONS FOR PT. ON 11-15-18 AT ABOUT 0830 HOURS, CHACHO SPOKE TO SIN DUENAS OF [facility] WHO WILL SEND REFERRAL TO [place] [facility]. CHACHO NOTIFIED SOFIA WHO REPORTS HAVING SKILLED REHAB IN [place] CALLED [facility] THAT SHE IS PRETTY SURE CAN ACCOMODATE DIALYSIS TRANSPORTATION. CM FAXED REFERRAL TO [facility] VIA [facility] AT [phone]. CM WAITING ADMISSION DETERMINATION FROM [facility] AND OUTPATIENT DIALYSIS CHAIR DETERMINATION FOR [place] [facility]. Baby Sitter: Corey Naranjo DCPIA - Discharge Planning Initial Assessment Updated by [id number]: Corey Naranjo on 11/15/18 11:22 am * Is the patient Alert and Oriented? Yes * How many steps to enter\\exit or inside your home? * PCP DR. ALEXANDRIA MALONE [place] * [facility] [address] IN [place] * Preadmission Environment Custodial Facility * Facility Name [facility] IN [place] (1 DAY) * ADLs Partial Dependent * Partial ADLs (Assistance needed) Ambulation Bathing Medication Management Transfers * Equipment Oxygen Rolling Walker * Other Equipment ROLLATOR WALKER, HOME AND PORTABLE OXYGEN AT HOME BY [employer] [place]. * List name and contact numbers for known caregivers / representatives who currently or will assist patient after discharge: CANELO JUNG, CELL [phone] * Verbal permission to speak to the caregivers and representatives has been obtained from the patient. N/A * Community resources currently utilized Other * Please name any agencies selected above. OUTPATIENT DIALYSIS, [facility], [place] [facility]; NEVER HAD FIRST DIALYSIS THERE. * Additional services required to return to the preadmission environment? Yes * Can the patient safely return to the preadmission environment? Yes * Has this patient been hospitalized within the prior 30 days at any hospital? Yes Coverage Notice Reviewer: [id number] Patel Naranjo Notice Issued Date-Time: 11/16/2018 10:50 Notice Type: IM Discharge Notice Notice Delivered To: Patient Relationship to Patient: International Sourcing Manager Name: Delivery Method: HAND - Hand Delivered Maria Alejandra Days: Prior Verbal Notification: Recipient Understood Notice: Yes Recipient Signature: Yes Med Rec Note Co-signed by Attending: Coverage Notice Comment: Last DP export: 11/15/18 10:36 a Patient Name: DEEPALI FENG Page [id number] at 1126 All edits/amendments must be made on the electronic document DICTATION DATE: 11/16/18 1126 MIMEOGRAPH OPERATOR: SUJEY 11/16/18 1126 RPT#: [id number] DC DATE: STATUS: ADM IN [facility] [address] [place] [address] END OF REPORT
--- NOTE | 2018-11-16 12:21 | NUR ---
Nutrition follow-up: Diet: Renal ADA PO intake ~50% of meals Pt with daily dialysis at this time per physician Labs reviewed; glucose elevated +BM Wt: 145# Will continue to provide food choices and honor food preferences within diet restrictions. RDN following.
--- NOTE | 2018-11-16 15:23 | NUR ---
I have reviewed this patient and I concur with the Shift Assessment completed by the Licensed Practical Nurse today this shift.
--- NOTE | 2018-11-16 19:17 | NUR ---
PT NOT IN ROOM CURRENTLY IN DIALYSIS AT THIS TIME
[2018-11-16 20:00] VITALS: BP 102/46
[2018-11-17] VITALS: BP 113/47
[2018-11-17 04:00] VITALS: BP 126/55
[2018-11-17 05:38] LABS: BASOPHILS 0.1 % (0-2); EOSINOPHILS 1.5 % (0-7); HEMATOCRIT 26.2 % (42.0-54.0); HEMOGLOBIN 8.2 g/dL (13.5-17.5); IMMATURE GRANULOCYTES 0.4 % (0-5); LYMPHOCYTES 6.9 % (15-50); MCH 29.5 pg (26.0-34.0); MCHC 31.3 g/dL (31.0-37.0); MCV 94.2 fL (80.0-100.0); MEAN PLATELET VOLUME 10.2 fL (7.4-10.4); MONOCYTES 6.8 % (2-11); NEUTROPHILS 84.3 % (40-80); PLATELET COUNT 197 10x3/uL (130-400); RBC 2.78 10x6/uL (4.20-6.10); RDW 17.9 % (11.5-14.5); WBC 14.4 10x3/uL (4.8-10.8)
[2018-11-17 05:56] LABS: ANION GAP 16.3 mmol/L (8-16); CALCIUM 8.2 mg/dL (8.5-10.1); CARBON DIOXIDE 23.7 mmol/L (21.0-32.0)
[2018-11-17 05:57] LABS: CREATININE - SERUM 3.1 mg/dL (0.6-1.3)
[2018-11-17 06:12] LABS: PHOSPHOROUS 6.3 mg/dL (2.5-4.9); VANCOMYCIN - TROUGH 18.7 ug/mL (10.0-20.0)
--- NOTE | 2018-11-17 07:46 | NUR ---
REPORT RECEIVED. WILL CONTINUE WITH POC. PT CURRENTLY SITTING ON EDGE OF BED.C ALL LIGHT W/I REACH. PT IS AAO AND UP WITH ASSIST. RR EVEN AND UNLABORED ON 4L 02. L.WRIST PIV IS SALIEN LOCKED. NO S/S OF DISTRESS NOTED. PT DENIES ANY NEEDS AT THIS TIME. WILL CTM.
[2018-11-17 08:12] VITALS: BP 114/50
--- NOTE | 2018-11-17 11:27 | EC ---
PATIENT:DEEPALI FENG DATE OF SERVICE: 11/11/18 SEX: M MEDICAL RECORD: [id number] DATE OF : [birth year] LOCATION:D.M2 D.213 AGE OF PATIENT: 78 ADMISSION DATE: 11/11/18 REFERRING PHYSICIAN: INTERPRETING PHYSICIAN: WANDA NOVAK MD ECHOCARDIOGRAM REPORT ECHO CHARGES 4 ECHO COMPLETE Date: 11/11/18 CLINICAL DIAGNOSIS: CHF ECHOCARDIOGRAPHIC MEASUREMENTS (adult normal given) AC root (d.<3.7cm) 2.2 cm LV Septum d (<1.2 cm> 1.3 cm Valve Excursion 1.6 cm LV Septum (systole) 1.6 cm Left Atria (s.<4.0cm> 4.0 cm LVPW d(<1.2cm) 1.2 cm RV (d.<2.3cm) 3.4 cm LVPW (sytole) 1.4 cm LV diastole(<5.6CM) 5.1 cm MV E-F(>70mm/sec) cm LV systole 3.7 cm LVOT Diameter 1.8 cm MV exc.(>10mm) cm Est.ejection fraction (50-75%) % DOPPLER: LVIT cm/sec A 44 cm/sec E 102 cm/sec LA cm/sec RVSP 50.7 mmHg LVOT 106 cm/sec AOP1/2T m/s Asc. Ao 165 cm/sec RVOT 78 cm/sec RA cm/sec PA 98 cm/sec AV Gradient Peak 10.9 mmHg AV Mean 7.7 mmHg AV Area 1.8 cm MV Gradient Peak 4.9 mmHg MV Mean 2.4 mmHg MV Area cm COMMENTS: Manager Plumbing: Ester MCMILLAN Configuration Manager: 1 Dr. Novak TAPE# PACS Pericardial Effusion N DATE OF SERVICE: 11/11/2018 FINDINGS: 1. Left ventricular chamber size is mildly dilated. Left ventricular systolic function is mild to moderately reduced. Overall ejection fraction in 35% range. 2. Left atrium is within normal limits. Right atrium and right ventricular chamber sizes are mildly dilated. 3. Valvular structures have normal structure and motion. 4. Doppler interrogation reveals itxu-ml-jhdklebn mitral regurgitation and mild tricuspid regurgitation. No other valvular insufficiency or stenosis. ECHOCARDIOGRAM REPORT [id number] DEEPALI FENG Pulmonary systolic pressure is elevated, estimated at 50 mmHg. 5. No evidence of pericardial effusion or left ventricular thrombus. TRANSINT:[id number] Voice Confirmation ID: [id number] DOCUMENT ID: [id number] WANDA NOVAK MD at 1127 CC: [id number] DICTATION DATE: 11/12/18 0959 SUPERVISOR STITCHING DEPARTMENT: 11/12/18 1523 ADM IN [facility] [address] [place] [id number]
[2018-11-17 12:12] VITALS: BP 110/44
--- NOTE | 2018-11-17 15:00 | NUR ---
PT TRANSFERED TO BEDSIDE COMMODE AND BACK TO BED TWICE WHERE PT HAD TWO LARGE HAROLDO COLORED BM'S. PT CURRENTLY LYING SEMI FOWLERS. CALL LIGHT W/I REACH. PT DENIES ANY NEEDS. WILL CTM.
--- NOTE | 2018-11-17 15:08 | NUR ---
SACRAL MEPILEX APPLIED TO STAGE 2 ON COCCYX. NO DRAINAGE PRESENT. WILL CTM.
--- NOTE | 2018-11-17 15:23 | NUR ---
I have reviewed this patient and I concur with the Shift Assessment completed by the Licensed Practical Nurse today this shift.
[2018-11-17 16:30] VITALS: BP 120/57
--- NOTE | 2018-11-17 17:35 | MORECARE ---
CASE MANAGEMENT DISCHARGE SUMMARY PATIENT: DEEPALI FENG UNIT: [id number] ADM DATE: 11/11/18 AGE: 78 : 39 SEX: M ROOM/BED: D.2130 AUTHOR: AGUSTINADOC PHYSICIAN: REFERRING PHYSICIAN: DEO WHITE MD DATE OF SERVICE: 11/17/18 Discharge Plan Patient Name: DEEPALI FENG Facility: [facility]:[place] : 1940 Planned Disposition: Chcf Facility Anticipated Discharge Date: 11/16/18 Discharge Date: Expected LOS: 5 Initial Reviewer: [id number] Initial Review Date: 11/14/2018 Generated: 11/17/18 6:35 pm Comments DCP- Discharge Planning Updated by [id number]: Corey Naranjo on 11/17/18 4:[address] Patient Name: DEEPALI FENG Encounter No: [id number] : 1940 Primary Insurance: MEDICARE A & B Anticipated DC Date: 11-16-2018 Planned Disposition: Chcf Facility External Planned Provider:[facility] [place], MEDICARE REHAB BED DCP follow-up note: CM FAXED UPDATE TO [facility] VIA [employer] AT [phone]. PT ACCEPTED FOR REHAB AT [facility] IN [place]. CM WAITING OUTPATIENT DIALYSIS UNIT ARRANGEMENT IN [place]. COREY NARANJO CASE YANE DCP- Discharge Planning Updated by [id number]: Corey Naranjo on 11/16/18 10:[address] Patient Name: DEEPALI FENG Encounter No: [id number] : 1940 Primary Insurance: MEDICARE A & B Anticipated DC Date: 11-16-2018 Planned Disposition: Chcf Facility External Planned Provider: [facility] [place], MEDICARE REHAB BED DCP follow-up note: CM RECEIVED MESSAGE FROM SOFIA OF [facility], THEY WILL ACCEPT IF PT CAN GET INTO OUTPATIENT DIALYSIS UNIT IN [place]. SIN [facility] NOTIFIED BY JULIO C JOEL. PT NOTIFIED IN ROOM, PT IN AGREEMENT WITH REHAB AT [facility]. IMPORTANT MESSAGE FROM MEDICARE PROVIDED AND EXPLAINED. PT ACCEPTED FOR REHAB AT [facility] IN [place]. CM WAITING OUTPATIENT DIALYSIS UNIT ARRANGEMENT IN [place]. COREY NARANJO, CASE MANAGEMENT DCP- Discharge Planning Updated by [id number]: Corey Naranjo on 11/15/18 10:[address] Patient Name: DEEPALI FENG Admission Status: ER Accout number: [id number] Admission Date: 11-11-2018 : 1940 Admission Diagnosis: Attending: DEO WHITE Current LOS: 4 Anticipated DC Date: 11-15-2018 Planned Disposition: Chcf Facility Primary Insurance: MEDICARE A & B PLANNED [facility], MEDICARE REHAB BED Discharge Planning Comments: LATE ENTRY FROM , 0815 HOURS. CM RECEIVED CALL FROM PT'S SPOUSE, CANELO, . CANELO STATES THE GIRL IN ICU TOLD HER THAT A CONFORMAL PAD FORMER WOULD CALL HER FIRST THING TODAY TO DISCUSS DISCHARGE PLANNING. CM EXPLAINED THAT CM WAS NOT INFORMED OF THIS AND CM DOES NOT OFFICIALLY START WORK UNTIL 0830AM. CM ASKED WHAT CAN BE DONE FOR THEM. CANELO STATES THAT PT WAS IN INPATIENT REHAB AT [place], WAS SENT TO [facility] AND DIALYSIS WAS ARRANGED IN [place]. PT GOT SICK AND WENT TO [place]. THEY DO NOT WANT TO GO BACK TO [facility] BECAUSE IT IS TOO OLD, PT DOES NOT HAVE A PRIVATE ROOM AND IT SEEMS TOO MUCH LIKE A DETENTION INSTEAD OF REHAB. CHACHO EXPLAINED ALF REHAB OPTIONS AND LOCATIONS. CANELO STATES THAT [place] DID NOT HAVE DIALYSIS CHAIR AVAILABLE AND THAT THEY WOULD REALLY LIKE TO RETURN TO [place] IF POSSIBLE THAT IS WHERE CANELO AND PT LIVE AND PT JUST NEEDS REHAB TO BE ABLE TO WALK PRIOR TO COMING BACK HOME. THEY HAVE NO CHOICE ON PROVIDER LONG IT IS A "NICE" REHAB AND NOT PRISON CARE DETENTION. THEY WANT A PRIVATE ROOM AND TO BE CLOSE TO [place] POSSIBLE. CHOICE COMPLETED FOR NO ALF FACILITY PREFERENCE. CANELO PROVIDED HER CONTACT NUMBERS: CANELO FENG, SPOUSE HOME [phone] CELL [phone] CM SPOKE TO SOFIA OF [facility] AND INFORMED THAT PT WILL NOT BE RETURNING TO [facility], REQUESTED ANOTHER SKILLED REHAB WITH PRIVATE ROOM THAT IS "NICE" AND CAN ACCOMODATE DIALYSIS. SOFIA WILL EXPLORE OPTIONS FOR PT. ON 11-15-18 AT ABOUT 0830 HOURS, CM SPOKE TO SIN DUENAS OF [facility] WHO WILL SEND REFERRAL TO [facility]. CM NOTIFIED SOFIA WHO REPORTS HAVING SKILLED REHAB IN [place] CALLED [facility] THAT SHE IS PRETTY SURE CAN ACCOMODATE DIALYSIS TRANSPORTATION. CM FAXED REFERRAL TO [facility] VIA [employer] AT [phone]. CM WAITING ADMISSION DETERMINATION FROM [facility] AND OUTPATIENT DIALYSIS CHAIR DETERMINATION FOR [place] [facility]. Ice Carver: Corey Naranjo DCPIA - Discharge Planning Initial Assessment Updated by [id number]: Corey Naranjo on 11/15/18 11:22 am * Is the patient Alert and Oriented? Yes * How many steps to enter\\exit or inside your home? * PCP DR. ALEXANDRIA MALONE [place] * Pharmacy [facility], [facility] IN [place] * Preadmission Environment Chcf Facility * Facility Name [facility] IN [place] (1 DAY) * ADLs Partial Dependent * Partial ADLs (Assistance needed) Ambulation Bathing Medication Management Transfers * Equipment Oxygen Rolling Walker * Other Equipment ROLLATOR WALKER, HOME AND PORTABLE OXYGEN AT HOME BY [facility] [place] [facility] [place]. * List name and contact numbers for known caregivers / representatives who currently or will assist patient after discharge: CANELO JUNG, CELL [phone] * Verbal permission to speak to the caregivers and representatives has been obtained from the patient. N/A * Community resources currently utilized Other * Please name any agencies selected above. OUTPATIENT DIALYSIS, MWF, [place] [facility]; NEVER HAD FIRST DIALYSIS THERE. * Additional services required to return to the preadmission environment? Yes * Can the patient safely return to the preadmission environment? Yes * Has this patient been hospitalized within the prior 30 days at any hospital? Yes Coverage Notice Reviewer: [id number] - Corey Naranjo Notice Issued Date-Time: 11/16/2018 10:50 Notice Type: IM Discharge Notice Notice Delivered To: Patient Relationship to Patient: Cash Management Clerk Name: Delivery Method: HAND - Hand Delivered Maria Alejandra Days: Prior Verbal Notification: Recipient Understood Notice: Yes Recipient Signature: Yes Med Rec Note Co-signed by Attending: Coverage Notice Comment: Last DP export: 11/16/18 10:26 a Patient Name: DEEPALI FENG Page [id number] at 1735 All edits/amendments must be made on the electronic document DICTATION DATE: 11/17/181733 CHIEF HUMAN RESOURCES OFFICER: SUJEY 11/17/181733 [facility]#: [id number] [place] DATE: STATUS: ADM IN [facility] [address] [place] [address] END OF REPORT
--- NOTE | 2018-11-17 19:18 | NUR ---
PT IN BED. DENIES NEEDS AT THIS TIME.
[2018-11-17 20:00] VITALS: BP 112/54
[2018-11-18 06:00] VITALS: BP 111/61
[2018-11-18 06:47] LABS: BASOPHILS 0.1 % (0-2); EOSINOPHILS 1.2 % (0-7); HEMATOCRIT 25.7 % (42.0-54.0); IMMATURE GRANULOCYTES 0.2 % (0-5); LYMPHOCYTES 4.1 % (15-50); MCH 29.2 pg (26.0-34.0); MCHC 31.1 g/dL (31.0-37.0); MCV 93.8 fL (80.0-100.0); MEAN PLATELET VOLUME 10.3 fL (7.4-10.4); MONOCYTES 4.2 % (2-11); NEUTROPHILS 90.2 % (40-80); PLATELET COUNT 225 10x3/uL (130-400); RBC 2.74 10x6/uL (4.20-6.10); RDW 17.9 % (11.5-14.5); WBC 16.1 10x3/uL (4.8-10.8)
--- NOTE | 2018-11-18 07:00 | NUR ---
SITTING UP ON SIDE OF BED OFFERS NO C/O RESP EVEN WITHOUT LABOR. DENIES ANY CURRENT NEEDS. CL IN REACH.
[2018-11-18 07:16] LABS: ANION GAP 20.9 mmol/L (8-16); CALCIUM 8.3 mg/dL (8.5-10.1); CARBON DIOXIDE 22.3 mmol/L (21.0-32.0); CREATININE - SERUM 3.4 mg/dL (0.6-1.3); PHOSPHOROUS 7.8 mg/dL (2.5-4.9); POTASSIUM - SERUM 4.2 mmol/L (3.5-5.1); VANCOMYCIN - TROUGH 27.4 ug/mL (10.0-20.0)
[2018-11-18 07:35] LABS: INR 2.49 (0.85-1.17); PROTIME 26.2 SECONDS (11.6-15.0)
[2018-11-18 08:10] VITALS: BP 104/50
--- NOTE | 2018-11-18 08:45 | NUR ---
SITTING UP ON SIDE OF THE BED. NO C/O VOICED. O2 ON. LEGS ARE FIRM TO TOUCH WITH POOR CIRCULATION WITH PEDAL PULSES STILL PALPABLE. EDEMA PRESENT BUT REFUSES TO ELEVATE THEM OR WEARS HIS SCD'S. TEACHING DONE ABOUT IMPORTANCE OF BOTH BUT HE SAYS DO ME A FAVOR AND SAVE YOUR BREATH I AM NOT GOING TO PUT MY LEGS UP AND I CANNT GET TO THE POT WITH HOSES ON.=
--- NOTE | 2018-11-18 10:56 | NUR ---
TRANSPORTED DOWN TO DIALYSIS BY TWO STAFF. OFFERS NO C/O AT THIS TIME. USED W/C AND PORTABLE O2 FOR TRANSPORT. ALERT WITH NO SOB
--- NOTE | 2018-11-18 13:50 | NUR ---
RETURN FROM DIALYSIS, NURSE HAD CALLED REPORT STATED THEY GOT OFF 3L OF FLUID AND HE TOLERATED IT WELL. ALERT IN HIS ROOM EATING HIS LUNCH WITH ASSIST. C/O PAIN WILL MEDICATE. BBS CLEAR.
--- NOTE | 2018-11-18 13:55 | NUR ---
HIS IS HERE AND STATES HE HAS NEVER BEEN ALLERGIC TO ANY MEDICINE AND SHE DOESNT KNOW WHERE THE PCN ALLERGY CAME FROM. HE CONFIRMED THIS SO I D/C IT.
--- NOTE | 2018-11-18 15:00 | NUR ---
C/O SOB. HE WAS PULLED UP IN THE BED AND REPOSITIONING DONE. HOB UP FAR HE ALLOWED. RESP HERE AND CHECKED HIM, STATED SHE JUST GAVE A BREATHING TX. BBS ARE CLEAR. IS AT BEDSIDE STATED HE JUST DOES THIS SOMETIMES. O2 SAT WAS DOWN IN 70'S BUT WITH O2 TURNED UP HIS SAT CAME UP TO 93%. HE BECAME CALMER.
[2018-11-18 16:08] VITALS: BP 109/58
--- NOTE | 2018-11-18 16:55 | NUR ---
REQUESTED TO SIT UP ON SIDE OF BED. EDUCATION GIVEN CONCERNING HIS SOB, RECENT DAILYSIS, AND USE OF PAIN MEDICATIONS BUT HE LIKES TO SIT ON SIDE OF BED AND STATES IT WILL HELP HIM BREATHE. HE IS WILLING TO TAKE ANY RISK DUE TO THIS CHOICE HE SAYS I AM THE PATIENT AND ITS MY RIGHT. I HELPED HIM SIT ON SIDE OF BED WITH CL IN REACH. ASKED TO PLEASE CALL FOR ASSIST AND NOT TO GET UP ALONE.
--- NOTE | 2018-11-18 19:07 | NUR ---
RESITED IV TO RIGHT HAND X1 STICK USING 22 GUAGE, FLUSHED WELL WITH GOOD BLOOD RETURN. TOOK OUT OLD IV TO LEFT WRIST WITH CATH INTACT.
--- NOTE | 2018-11-18 19:44 | NUR ---
PT SITTING IN CHAIR. DENIES NEEDS AT THIS TIME.
[2018-11-18 20:10] VITALS: BP 111/33
[2018-11-18 23:41] VITALS: BP 103/47
[2018-11-19 03:43] VITALS: BP 104/45
[2018-11-19 06:39] LABS: BASOPHILS 0.1 % (0-2); EOSINOPHILS 0.5 % (0-7); HEMATOCRIT 24.9 % (42.0-54.0); HEMOGLOBIN 7.8 g/dL (13.5-17.5); IMMATURE GRANULOCYTES 0.5 % (0-5); MCH 29.2 pg (26.0-34.0); MCHC 31.3 g/dL (31.0-37.0); MCV 93.3 fL (80.0-100.0); MEAN PLATELET VOLUME 10.1 fL (7.4-10.4); NEUTROPHILS 88.9 % (40-80); PLATELET COUNT 213 10x3/uL (130-400); RBC 2.67 10x6/uL (4.20-6.10); RDW 17.8 % (11.5-14.5); WBC 17.7 10x3/uL (4.8-10.8)
[2018-11-19 06:49] LABS: ANION GAP 20.1 mmol/L (8-16); CALCIUM 8.2 mg/dL (8.5-10.1); CREATININE - SERUM 3.4 mg/dL (0.6-1.3); PHOSPHOROUS 7.7 mg/dL (2.5-4.9); POTASSIUM - SERUM 4.1 mmol/L (3.5-5.1); VANCOMYCIN - TROUGH 21.1 ug/mL (10.0-20.0)
--- NOTE | 2018-11-19 07:10 | NUR ---
REPORT RECEIVED FROM ASSISTANT OPERATOR AND PATIENT CARE ASSUMED. PATIENT SITTING UP IN BS CHAIR. AWAKE, ALERT AND ORIENTED X 4. PATIENT DENIES ANY NEEDS OR PAIN. WILL CONTINUE WITH PLAN OF CARE. CALL LIGHT IN PATIENTS LAP.
[2018-11-19 08:28] VITALS: BP 103/47
--- NOTE | 2018-11-19 09:00 | NUR ---
PATIENT IS STABLE AND VSS. PATIENT HAS HAD BM OF SOFT BROWN STOOL. PATIENT CLEANED AND REQUESTS TO STAY SITTING UP IN BS CHAIR. CALL LIGHT IN REACH.
--- NOTE | 2018-11-19 09:30 | NUR ---
HAYLEE FAITH IN ROOM. NOW NEW ORDERS RECEIVED.
--- NOTE | 2018-11-19 10:45 | NUR ---
PATIENT STILL SITTING UP IN BS CHAIR. PATIENT IS STABLE AND VSS. PATIENT REQUESTS THAT GLUCERNA VANILLA BE ON EACH MEAL TRAY. MESSAGE SENT TO DIETARY. ASSESSMENT COMPLETED. WILL CONTINUE TO MONITOR.
[2018-11-19 11:18] VITALS: BP 109/55
[2018-11-19 15:45] VITALS: BP 106/51
[2018-11-19 19:49] VITALS: BP 122/51
--- NOTE | 2018-11-19 21:57 | NUR ---
INITIAL ROUNDS COMPLETED AT 1910 HRS. PT DENIED ANY DISCOMFORT. ASSESSMENT COMPLETED AT 2005 HRS. VSS. PACED RHTYHM PER CM HR 95. R CHEST HEMOSPLIT CLEAN AND DRY. IV TO R HAND SL. 02 3.5L HIGH FLOW CANNULA. LUNGS DIMINISHED IN BASES BILAT. JULIO DRAINING MINIMAL DARK URINE. 2+ PITTING EDEMA TO BILAT FEET. PT SITTING IN RECLINER. REFUSES TO ELEVAT FEET. MEPILEX TO COCCYX NOTED. PM FSBS 274. 10 UNITS REG INSULIN GIVEN SUB-Q TO UPPER R ARM. PT REFUSED PM NEUROTIN, MIRALAX AND SENNAKOT. PT CURRENTLY SITTING IN RECLINER WITH CALL LIGHT WITHIN REACH.
[2018-11-19 23:18] VITALS: BP 112/52
--- NOTE | 2018-11-20 00:08 | NUR ---
PT RESTING WITH EYES CLOSED. RESP EVEN AND REGULAR. SR UP X2, CALL LIGHT WITHIN REACH.
--- NOTE | 2018-11-20 02:19 | NUR ---
NORCO PO GIVEN FOR C/O BILAT FOOT PAIN. SR UP X2, CALL LIGHT WITHIN REACH.
--- NOTE | 2018-11-20 03:49 | NUR ---
PT ASSISTED BACK INTO RECLINER. PT SOB WITJ ACTIVITY. CONTINUES TO C/O NEUROPATHY TYPE PAIN TO FEET. 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 WILL CONTINUE TO MONITOR. CALL LIGHT WITHIN REACH.
[2018-11-20 04:14] VITALS: BP 117/70
--- NOTE | 2018-11-20 04:48 | NUR ---
PT SITTING UP IN THE RECLINER. NO DISTRESS NOTED. CALL LIGHT WITHIN REACH.
[2018-11-20 06:27] LABS: BASOPHILS 0.1 % (0-2); EOSINOPHILS 0.7 % (0-7); HEMATOCRIT 22.3 % (42.0-54.0); IMMATURE GRANULOCYTES 0.4 % (0-5); LYMPHOCYTES 3.8 % (15-50); MCH 29.3 pg (26.0-34.0); MCHC 31.8 g/dL (31.0-37.0); MCV 92.1 fL (80.0-100.0); MEAN PLATELET VOLUME 10.3 fL (7.4-10.4); MONOCYTES 5.4 % (2-11); NEUTROPHILS 89.6 % (40-80); PLATELET COUNT 214 10x3/uL (130-400); RBC 2.42 10x6/uL (4.20-6.10); RDW 17.3 % (11.5-14.5); WBC 16.9 10x3/uL (4.8-10.8)
--- NOTE | 2018-11-20 06:33 | NUR ---
VSS THROUGHOUT NIGHT. PACED RHYTHM PER CM. CONTINUES TO HAVE C/O NEUROPATHY LIKE PAIN TO BILAT FEET BUT REFUSES NEURONTIN. CALL LIGHT WITHIN REACH. PT IN RECLINER. WILL CONTINUE TO MONITOR.
[2018-11-20 06:38] LABS: ANION GAP 20.4 mmol/L (8-16); CALCIUM 7.9 mg/dL (8.5-10.1); CARBON DIOXIDE 20.8 mmol/L (21.0-32.0); CREATININE - SERUM 3.8 mg/dL (0.6-1.3); PHOSPHOROUS 8.5 mg/dL (2.5-4.9); POTASSIUM - SERUM 4.2 mmol/L (3.5-5.1)
[2018-11-20 06:41] LABS: HEMOGLOBIN 7.1 g/dL (13.5-17.5)
--- NOTE | 2018-11-20 07:00 | NUR ---
DR GARCIA AWARE OF H&H. NEW ORDERS RECEIVED.
--- NOTE | 2018-11-20 07:35 | NUR ---
ALERT AND ORIENTED X4. SITTING UP IN CHAIR. TOURNIQUET LEFT ON LEFT ARM FROM AM LAB DRAW BY JADE. RELEASE TOURNIQUET. NOTIFY LAB AND REHABILITATION SERVICES DIRECTOR OF FINDINGS. FILL OUT CSTARS PER PRASHANT.
[2018-11-20 07:40] VITALS: BP 120/42
[2018-11-20 11:29] VITALS: BP 130/59
--- NOTE | 2018-11-20 12:00 | NUR ---
ALERT AND ORIENTED X4. TAKEN TO DIALYSIS VIA BED.
[2018-11-20 12:03] LABS: INR 1.68 (0.85-1.17); PROTIME 19.2 SECONDS (11.6-15.0)
--- NOTE | 2018-11-20 14:10 | NUR ---
Nutrition follow-up: RDN visited with pt re: PO4. Pt has been requesting and getting whole milk, Ensure and Glucerna all high in PO4. Pt with PO4 of 8.5 today. Advised pt the only nutritional supplement we would send him in [place]. Pt mad because he wants milk with his cereal in the morning. Advised pt we would send him 1/2 cup skim milk in the moring but no more. Also discussed the [address] Roth added. Pt will not be allowed to have a 20 oz glass of ice or water at bedside. RDN discussed with PERINATAL NURSE. Pt is receiving a Renal ADA diet with po intake ~75% average of most meals Wt: 145# +BM RDN following.
--- NOTE | 2018-11-20 19:30 | NUR ---
PT SEEMS AGRIVATED. COMPLAINING OF SERVICE AND STATING THAT HE SHOULD BE A PRIORITY..ALSO USING RACIST DEROGATORY WORDS TO DESCRIBE STAFF. REFUSED FULL ASSESSMENT STATING WE HAVE PUT HANDS ON HIM ENOUGH SITTING IN CHAIR AT THIS TIME WITH CALL LIGHT IN REACH
[2018-11-20 19:55] VITALS: BP 108/46
[2018-11-20 23:58] VITALS: BP 110/48
[2018-11-21 04:06] VITALS: BP 117/50
[2018-11-21 06:17] LABS: BASOPHILS 0.1 % (0-2); EOSINOPHILS 0.8 % (0-7); HEMATOCRIT 25.9 % (42.0-54.0); HEMOGLOBIN 8.3 g/dL (13.5-17.5); IMMATURE GRANULOCYTES 0.4 % (0-5); LYMPHOCYTES 5.1 % (15-50); MCH 29.4 pg (26.0-34.0); MCV 91.8 fL (80.0-100.0); MEAN PLATELET VOLUME 9.7 fL (7.4-10.4); MONOCYTES 5.1 % (2-11); NEUTROPHILS 88.5 % (40-80); PLATELET COUNT 205 10x3/uL (130-400); RBC 2.82 10x6/uL (4.20-6.10); RDW 17.7 % (11.5-14.5); WBC 19.2 10x3/uL (4.8-10.8)
[2018-11-21 06:35] LABS: ANION GAP 16.6 mmol/L (8-16); CALCIUM 8.1 mg/dL (8.5-10.1); CARBON DIOXIDE 23.7 mmol/L (21.0-32.0); CREATININE - SERUM 3.3 mg/dL (0.6-1.3); PHOSPHOROUS 6.6 mg/dL (2.5-4.9); VANCOMYCIN - RANDOM 16.8 ug/mL (10.0-20.0)
[2018-11-21 06:37] LABS: POTASSIUM - SERUM 3.3 mmol/L (3.5-5.1)
--- NOTE | 2018-11-21 06:38 | NUR ---
PT HAS BEEN ARGUEMENTATIVE AND REPORTED TO ME NOW THAT [email or web address] WAS HELPING HIM SIT ON SIDE OF BED THAT THE PT JERKED BACK CAUSING A SKIN TEAR TO THE RIGHT ARM AREA IS JAGGED I CLEANED AND COVERED WITH TEGRIDERM
--- NOTE | 2018-11-21 07:09 | NUR ---
CALLED AND SPOKE TO ON LENGTH EXPLAINING THIS AM'S PROCEDURE AND THE PT'S BEHAVIOR SHE AGREED THAT THIS BEHAVIOR HAS BEEN A PROBLEM. I ALSO INFORMED HER OF THE SKIN TEAR THAT RESULTED THIS AM
--- NOTE | 2018-11-21 07:24 | NUR ---
VANCOMYCIN INFUSING AT THIS TIME. CALLED SURGERY AND SPOKE WITH BEVERLY REGARDING TIME OF PATINETS PROCEDURE AND HE STATED IT WILL BE THIS AFTERNOON AFTER LUNCH. PATIENT MADE AWARE AND ALSO THAT HE IS STILL NPO THIS AM JUST IN CASE A SPOT OPENS UP SOONER IN THE OR. PATIENT UPSET, STATES NOBODY KNOWS WHAT IS GOING ON AROUND HERE. DISCUSSED DAILY ACTIVITIES FOR TODAY WITH PATIENT AND HE IS CONTENT AT THE MOMENT.
--- NOTE | 2018-11-21 07:25 | MORECARE ---
CASE MANAGEMENT DISCHARGE SUMMARY PATIENT: DEEPALI FENG UNIT: [id number] ADM DATE: 11/11/18 AGE: 78 : 39 SEX: M ROOM/BED: D.2130 AUTHOR: AGUSTINADOC PHYSICIAN: REFERRING PHYSICIAN: DEO WHITE MD DATE OF SERVICE: 11/21/18 Discharge Plan Patient Name: DEEPALI FENG Facility: [facility]:[place] : 1940 Planned Disposition: Prison Facility Anticipated Discharge Date: 11/21/18 Discharge Date: Expected LOS: 10 Initial Reviewer: [id number] Initial Review Date: 11/14/2018 Generated: 11/21/18 8:25 am DCP- Discharge Planning Updated by [email or web address]: Corey Naranjo on 11/17/18 4:[address] Patient Name: DEEPALI FENG Encounter No: [id number] : 1940 Primary Insurance: MEDICARE A & B Anticipated DC Date: 11-16-2018 Planned Disposition: Prison Facility External Planned Provider:[facility] [place], MEDICARE REHAB BED DCP follow-up note: CM FAXED UPDATE TO [facility] VIA [employer] AT [phone]. PT ACCEPTED FOR REHAB AT [facility] IN [place]. CM WAITING OUTPATIENT DIALYSIS UNIT ARRANGEMENT IN [place]. COREY NARANJO CASE YANE DCP- Discharge Planning Updated by [email or web address]: Corey Naranjo on 11/16/18 10:[address] Patient Name: DEEPALI FENG Encounter No: [id number] : 1940 Primary Insurance: MEDICARE A & B Anticipated DC Date: 11-16-2018 Planned Disposition: Prison Facility External Planned Provider: [facility] [place], MEDICARE REHAB BED DCP follow-up note: CM RECEIVED MESSAGE FROM SOFIA OF [facility], THEY WILL ACCEPT IF PT CAN GET INTO OUTPATIENT DIALYSIS UNIT IN [place]. [facility]IN [facility] NOTIFIED BY JULIO C JOEL. PT NOTIFIED IN ROOM, PT IN AGREEMENT WITH REHAB AT [facility]. IMPORTANT MESSAGE FROM MEDICARE PROVIDED AND EXPLAINED. PT ACCEPTED FOR REHAB AT [facility] IN [place]. CM WAITING OUTPATIENT DIALYSIS UNIT ARRANGEMENT IN [place]. COREY NARANJO, CASE MANAGEMENT DCP- Discharge Planning Updated by [id number]: Corey Naranjo on 11/15/18 10:[address] Patient Name: DEEPALI EFNG Admission Status: ER Accout number: [id number] Admission Date: 11-11-2018 : 1940 Admission Diagnosis: Attending: DEO WHITE Current LOS: 4 Anticipated DC Date: 11-15-2018 Planned Disposition: Prison Facility Primary Insurance: MEDICARE A & B PLANNED EXTERNAL PROVIDER[facility], MEDICARE REHAB BED Discharge Planning Comments: LATE ENTRY FROM , 0815 HOURS. CM RECEIVED CALL FROM PT'S SPOUSE, CANELO, . CANELO STATES THE GIRL IN ICU TOLD HER THAT A PROGRAM MANAGEMENT SPECIALIST WOULD CALL HER FIRST THING TODAY TO DISCUSS DISCHARGE PLANNING. CM EXPLAINED THAT CM WAS NOT INFORMED OF THIS AND CM DOES NOT OFFICIALLY START WORK UNTIL 0830AM. CM ASKED WHAT CAN BE DONE FOR THEM. CANELO STATES THAT PT WAS IN INPATIENT REHAB AT [place], WAS SENT TO [facility] AND DIALYSIS WAS ARRANGED IN [place]. PT GOT SICK AND WENT TO [place]. THEY DO NOT WANT TO GO BACK TO [facility] BECAUSE IT IS TOO OLD, PT DOES NOT HAVE A PRIVATE ROOM AND IT SEEMS TOO MUCH LIKE A HALF-WAY INSTEAD OF REHAB. CM EXPLAINED DETENTION REHAB OPTIONS AND LOCATIONS. CANELO STATES THAT [place] DID NOT HAVE DIALYSIS CHAIR AVAILABLE AND THAT THEY WOULD REALLY LIKE TO RETURN TO [place] IF POSSIBLE THAT IS WHERE CANELO AND PT LIVE AND PT JUST NEEDS REHAB TO BE ABLE TO WALK PRIOR TO COMING BACK HOME. THEY HAVE NO CHOICE ON PROVIDER LONG IT IS A "NICE" REHAB AND NOT RESIDENTIAL CARE HALF-WAY. THEY WANT A PRIVATE ROOM AND TO BE CLOSE TO [place] POSSIBLE. CHOICE COMPLETED FOR NO DETENTION FACILITY PREFERENCE. CANELO PROVIDED HER CONTACT NUMBERS: CANELO FENG, SPOUSE HOME [phone] CELL [phone] CM SPOKE TO SOFIA OF [facility] AND INFORMED THAT PT WILL NOT BE RETURNING TO [facility], REQUESTED ANOTHER SKILLED REHAB WITH PRIVATE ROOM THAT IS "NICE" AND CAN ACCOMODATE DIALYSIS. SOFIA WILL EXPLORE OPTIONS FOR PT. ON 11-15-18 AT ABOUT 0830 HOURS, CM SPOKE TO SIN DUENAS OF [facility] WHO WILL SEND REFERRAL TO [facility]. CM NOTIFIED SOFIA WHO REPORTS HAVING SKILLED REHAB IN [place] CALLED [facility] THAT SHE IS PRETTY SURE CAN ACCOMODATE DIALYSIS TRANSPORTATION. CM FAXED REFERRAL TO [facility] VIA [employer] AT [phone]. CM WAITING ADMISSION DETERMINATION FROM [facility] AND OUTPATIENT DIALYSIS CHAIR DETERMINATION FOR [place] [facility]. Sprayer Machine: Corey Naranjo DCPIA - Discharge Planning Initial Assessment Updated by [email or web address]: Corey Naranjo on 11/15/18 11:22 am * Is the patient Alert and Oriented? Yes * How many steps to enter\\exit or inside your home? * PCP DR. ALEXANDRIA MALONE [place] * Pharmacy [facility], [employer] [facility] IN [place] * Preadmission Environment Prison Facility * Facility Name [facility] IN [place] (1 DAY) * ADLs Partial Dependent * Partial ADLs (Assistance needed) Ambulation Bathing Medication Management Transfers * Equipment Oxygen Rolling Walker * Other Equipment ROLLATOR WALKER, HOME AND PORTABLE OXYGEN AT HOME BY [facility] [place] [facility] [place]. * List name and contact numbers for known caregivers / representatives who currently or will assist patient after discharge: CANELO JUNG, CELL [phone] * Verbal permission to speak to the caregivers and representatives has been obtained from the patient. N/A * Community resources currently utilized Other * Please name any agencies selected above. OUTPATIENT DIALYSIS, MWF, [place] [facility]; NEVER HAD FIRST DIALYSIS THERE. * Additional services required to return to the preadmission environment? Yes * Can the patient safely return to the preadmission environment? Yes * Has this patient been hospitalized within the prior 30 days at any hospital? Yes Coverage Notice Reviewer: [id number] - Corey Naranjo Notice Issued Date-Time: 11/16/2018 10:50 Notice Type: IM Discharge Notice Notice Delivered To: Patient Relationship to Patient: Fbi Sharpshooter Name: Delivery Method: HAND - Hand Delivered Maria Alejandra Days: Prior Verbal Notification: Recipient Understood Notice: Yes Recipient Signature: Yes Med Rec Note Co-signed by Attending: Coverage Notice Comment: Last DP export: 11/17/18 4:35 p Patient Name: DEEPALI FENG Page [id number] at 0725 All edits/amendments must be made on the electronic document DICTATION DATE: 11/21/18723 ACQUISITION MANAGER: SUJEY 11/21/18723 RPT#: [id number] DC DATE: STATUS: ADM IN [facility] [address] [place] [address] END OF REPORT
[2018-11-21 07:28] VITALS: BP 111/61
[2018-11-21 07:32] LABS: INR 2.32 (0.85-1.17); PROTIME 24.7 SECONDS (11.6-15.0)
--- NOTE | 2018-11-21 07:46 | MORECARE ---
CASE MANAGEMENT DISCHARGE SUMMARY PATIENT: DEEPALI FENG UNIT: [id number] ADM DATE: 11/11/18 AGE: 78 : 39 SEX: M ROOM/BED: D.2130 AUTHOR: STEVEN BERRIOS PHYSICIAN: REFERRING PHYSICIAN: DEO WHITE MD DATE OF SERVICE: 11/21/18 Discharge Plan Patient Name: DEEPALI FENG Facility: [facility]:[place] : 1940 Planned Disposition: Retirement Facility Anticipated Discharge Date: 11/21/18 Discharge Date: Expected LOS: 10 Initial Reviewer: [id number] Initial Review Date: 11/14/2018 Generated: 11/21/18 8:45 am Comments DCP- Discharge Planning Updated by [email or web address]: Corey Naranjo on 11/21/18 6:[address] Patient Name: DEEPALI FENG Encounter No: [id number] : 1940 Primary Insurance: MEDICARE A & B Anticipated DC Date: 11-21-2018 Planned Disposition: Retirement Facility External Planned Provider: [facility], MEDICARE REHAB BED CM FAXED UPDATE TO [facility] VIA [employer] AT [phone]. PT ACCEPTED FOR REHAB AT [facility]. CM WAITING OUTPATIENT DIALYSIS UNIT ARRANGEMENT IN [place]. COREY NARANJO CASE YANE DCP- Discharge Planning Updated by [id number]: Corey Naranjo on 11/17/18 4:[address] Patient Name: DEEPALI FENG Encounter No: [id number] : 1940 Primary Insurance: MEDICARE A & B Anticipated DC Date: 11-16-2018 Planned Disposition: Retirement Facility External Planned Provider[facility] [place], MEDICARE REHAB BED DCP follow-up note: CM FAXED UPDATE TO [facility] VIA [employer] AT [phone]. PT ACCEPTED FOR REHAB AT [facility]. CM WAITING OUTPATIENT DIALYSIS UNIT ARRANGEMENT IN [place]. COREY NARANJO CASE MANAGEMENT DCP- Discharge Planning Updated by [id number]: Corey Naranjo on 11/16/18 10:[address] Patient Name: DEEPALI FENG Encounter No: [id number] : 1940 Primary Insurance: MEDICARE A & B Anticipated DC Date: 11-16-2018 Planned Disposition: Retirement Facility External Planned Provider: [facility] [place], MEDICARE REHAB BED DCP follow-up note: CM RECEIVED MESSAGE FROM SOFIA OF [facility], THEY WILL ACCEPT IF PT CAN GET INTO OUTPATIENT DIALYSIS UNIT IN [place]. [facility] NOTIFIED BY JULIO C JOEL. PT NOTIFIED IN ROOM, PT IN AGREEMENT WITH REHAB AT [facility]. IMPORTANT MESSAGE FROM MEDICARE PROVIDED AND EXPLAINED. PT ACCEPTED FOR REHAB AT [facility] IN [place]. CM WAITING OUTPATIENT DIALYSIS UNIT ARRANGEMENT IN [place]. COREY NARANJO, CASE MANAGEMENT DCP- Discharge Planning Updated by [id number]: Corey Naranjo on 11/15/18 10:[address] Patient Name: DEEPALI FENG Admission Status: ER Accout number: [id number] Admission Date: 11-11-2018 : 1940 Admission Diagnosis: Attending: DEO WHITE Current LOS: 4 Anticipated DC Date: 11-15-2018 Planned Disposition: Retirement Facility Primary Insurance: MEDICARE A & B PLANNED EXTERNAL PROVIDER: [facility] [place], MEDICARE REHAB BED Discharge Planning Comments: LATE ENTRY FROM , 0815 HOURS. CM RECEIVED CALL FROM PT'S SPOUSE, CANELO, . CANELO STATES THE GIRL IN ICU TOLD HER THAT A TECHNICAL ENGINEER WOULD CALL HER FIRST THING TODAY TO DISCUSS DISCHARGE PLANNING. CM EXPLAINED THAT CM WAS NOT INFORMED OF THIS AND CM DOES NOT OFFICIALLY START WORK UNTIL 0830AM. CM ASKED WHAT CAN BE DONE FOR THEM. CANELO STATES THAT PT WAS IN INPATIENT REHAB AT [place], WAS SENT TO [facility] AND DIALYSIS WAS ARRANGED IN [place]. PT GOT SICK AND WENT TO [place]. THEY DO NOT WANT TO GO BACK TO [facility] BECAUSE IT IS TOO OLD, PT DOES NOT HAVE A PRIVATE ROOM AND IT SEEMS TOO MUCH LIKE A SENIOR LIVING INSTEAD OF REHAB. CM EXPLAINED [facility] RE[facility] OPTIONS AND LOCATIONS. CANELO STATES THAT [place] DID NOT HAVE DIALYSIS CHAIR AVAILABLE AND THAT THEY WOULD REALLY LIKE TO RETURN TO [place] IF POSSIBLE THAT IS WHERE CANELO AND PT LIVE AND PT JUST NEEDS REHAB TO BE ABLE TO WALK PRIOR TO COMING BACK HOME. THEY HAVE NO CHOICE ON PROVIDER LONG IT IS A "NICE" REHAB AND NOT [facility] SENIOR LIVING. THEY WANT A PRIVATE ROOM AND TO BE CLOSE TO [place] POSSIBLE. CHOICE COMPLETED FOR NO [facility] FACILITY PREFERENCE. CANELO PROVIDED HER CONTACT NUMBERS: CANELO FENG, SPOUSE HOME [phone] CELL [phone] CM SPOKE TO SOFIA OF [facility] AND INFORMED THAT PT WILL NOT BE RETURNING TO [facility], REQUESTED ANOTHER SKILLED REHAB WITH PRIVATE ROOM THAT IS "NICE" AND CAN ACCOMODATE DIALYSIS. SOFIA WILL EXPLORE OPTIONS FOR PT. ON 11-15-18 AT ABOUT 0830 HOURS, CHACHO SPOKE TO SIN DUENAS OF [facility] WHO WILL SEND REFERRAL TO [facility]. CHACHO NOTIFIED SOFIA WHO REPORTS HAVING SKILLED REHAB IN [place] CALLED [facility] THAT SHE IS PRETTY SURE CAN ACCOMODATE DIALYSIS TRANSPORTATION. CM FAXED REFERRAL TO [facility] VIA [employer] AT [phone]. CM WAITING ADMISSION DETERMINATION FROM [facility] AND OUTPATIENT DIALYSIS CHAIR DETERMINATION FOR [facility]. Bead Wire Taper: Corey Naranjo DCPIA - Discharge Planning Initial Assessment Updated by [email or web address]: Corey Naranjo on 11/15/18 11:22 am * Is the patient Alert and Oriented? Yes * How many steps to enter\\exit or inside your home? * PCP DR. ALEXANDRIA MALONE, [place] * Pharmacy [facility] IN [place] * Preadmission Environment Retirement Facility * Facility Name [facility] (1 DAY) * ADLs Partial Dependent * Partial ADLs (Assistance needed) Ambulation Bathing Medication Management Transfers * Equipment Oxygen Rolling Walker * Other Equipment ROLLATOR WALKER, HOME AND PORTABLE OXYGEN AT HOME BY [facility] [place]. * List name and contact numbers for known caregivers / representatives who currently or will assist patient after discharge: CANELO FENG, CELL [phone] * Verbal permission to speak to the caregivers and representatives has been obtained from the patient. N/A * Community resources currently utilized Other * Please name any agencies selected above. OUTPATIENT DIALYSIS, MWF, [place] [facility]; NEVER HAD FIRST DIALYSIS THERE. * Additional services required to return to the preadmission environment? Yes * Can the patient safely return to the preadmission environment? Yes * Has this patient been hospitalized within the prior 30 days at any hospital? Yes Coverage Notice Reviewer: [id number] Patel Naranjo Notice Issued Date-Time: 11/16/2018 10:50 Notice Type: IM Discharge Notice Notice Delivered To: Patient Relationship to Patient: Auto Bumper Mechanic Name: Delivery Method: HAND - Hand Delivered Maria Aleajndra Days: Prior Verbal Notification: Recipient Understood Notice: Yes Recipient Signature: Yes Med Rec Note Co-signed by Attending: Coverage Notice Comment: Last DP export: 11/21/18 6:25 am Patient Name: DEEPALI FENG Page [id number] at 0746 All edits/amendments must be made on the electronic document DICTATION DATE: 11/21/18744 BRAKE LINER: SUJEY 11/21/1845 RPT#: [id number] DC DATE: STATUS: ADM IN [facility] [address] [place] [address] END OF REPORT
--- NOTE | 2018-11-21 07:50 | NUR ---
PATIENT IS NPO FOR HEMESPLIT REPLACEMENT THIS AM. NO PO MEDICATIONS ADMINISTERED PER NPO STATUS. LANTUS INSULIN HELD ALSO.
--- NOTE | 2018-11-21 09:50 | NUR ---
CALLED PHARMACY AT 0730 THIS AM AND SPOKE WITH NIA AND REQUESTED THE BETADINE OINTMENT BE BROUGHT TO THE UNIT FOR THIS PATIENT. BETADINE OINTMENT IS STILL NOT AVAILABLE FROM PHARMACY AT THIS TIME!
--- NOTE | 2018-11-21 10:33 | NUR ---
REQUESTED EPOGEN FROM [facility] IN PHARMACY AT 0950 AND MEDICATION IS STILL NOT AVIALABLE ON UNIT AT THIS TIME.
--- NOTE | 2018-11-21 10:52 | NUR ---
HAVE CALLED DIALYSIS MULTIPLE TIMES TO INFORM ISMAEL THAT WE ARE WAITING ON AN OXYGEN TANK IN ORDER TO BRING PATIENT DOWNSTAIRS BUT NOONE IN THE DIAYSIS UNIT IS ANSWERING THE PHONE.
--- NOTE | 2018-11-21 11:00 | NUR ---
FSBS 231. NO INSULIN PATIENT IS NPO.
--- NOTE | 2018-11-21 11:03 | NUR ---
CALLED PRIMARY NURSE BACK SHE WAS ATTEMPTING TO CONTACT ME TO LET ME KNOW THAT THEY WERE WAITING ON AN O2 TANK FOR PT. I WAS UNABLE TO ANSWER HER CALL I WAS INITIATING TX ON ANOTHER PT OF HERS AND DIDN'T WANT TO BREAK ASEPTIC TECH.
--- NOTE | 2018-11-21 11:05 | NUR ---
PATIENT LEFT UNIT VIA BED AT THIS TIME FOR DIALYSIS. PATIENT IN NO DISTRESS UPON LEAVING UNIT. PATIENT AWAITING SURGICAL EXCHANGE OF HEMESPLIT.
--- NOTE | 2018-11-21 12:39 | NUR ---
PATIENT HAS 1HR 55 MINS LEFT ON DIALYSIS. SPOKE WITH BEVERLY IN OR AND NOTIFIED HIM THAT PATIENT IS IN DIAYSIS, BUT WILL PULL PATIENT OFF THE MACHINE IF NEEDED. BEVERLY CALLED BACK AND THEY NEED PATIENT WITHIN THE NEXT 30 MINUTES. CALLED AND SPOKE WITH ISMAEL AND SHE IS TAKING PATIENT OFF THE MACHINE NOW.
--- NOTE | 2018-11-21 12:43 | NUR ---
PATIENT HAS NO PREOP ORDERS AND NOW SURGERY IS NOT ANSWERING THE PHONE. WILL PULL SALINE AND MICRODRIP TUBING.
--- NOTE | 2018-11-21 13:04 | NUR ---
TX STOPPED EARLY PT IS GOING TO SURGERY. PRIMARY NURSE CALLED TO CHECK HOW MUCH TIME WAS LEFT. STOPPED APPROX 55MINUTES PRIOR TO COMPLETION. ONLY GOT 902ML OFF. PT CATH VERY POSITIONAL AND HAD TO RESET ALARM CONSTANTLY. PT NOW OUT OF DIALYSIS SUITE AND TO SURGERY.
[2018-11-21 15:21] VITALS: BP 102/43
--- NOTE | 2018-11-21 15:23 | NUR ---
ARRIVE BACK TO ROOM FROM OR. SLEEPING IN BED. AROUSES EASILY. RT CHEST HEMOSPLIT REMOVED AND REPLACED RT CHEST ABOVE OLD ACCESS. BP-102/43, HR-87, T-97.3, O2-98 RA. FREE FROM BLEEDING. CONTINUE PLAN OF CARE AND SAFETY PRECAUTIONS.
--- NOTE | 2018-11-21 19:09 | NUR ---
PT RESTING IN BED WATCHING TV. PLACED NAME AND DATE ON BOARD. NOURISHMENT OFFERED. PT DENIES ANY NEEDS. NO S/S OF DISTRESS. WILL CPOC
--- NOTE | 2018-11-21 19:42 | NUR ---
PT YELLING AND CALLING OUT, PRESSED CALL LIGHT. NURSE HEARD FROM OTHER ROOM. PT YELLING OUT ABOUT HIS BACK. NURSE AND AID CHECKED ON PT. HE STATES HIS BACK IS KILLING HIM HE NEEDS OUT OF BED. AID AND NURSE ASSISTED PT OUT OF BED TO CHAIR. SCROTUM HAS EDEMA. ELEVATED ON TOWEL. RIGHT HAND 22G NOTED. RIGHT CHEST HEMESPLIT NOTED. PT HAS NO S/S OF DISTRESS. CALL LIGHT IN REACH. WILL CPOC
[2018-11-21 20:00] VITALS: BP 107/51
--- NOTE | 2018-11-21 20:46 | NUR ---
FSBS IS 159 4 UNITS GIVEN ORDERED. PT REFUSED ALL NIGHT MEDICATIONS BESIDEDS LASIX AND NORCO. PT SITTING UP IN CHAIR. DENIES ANY OTHER NEEDS. NO S/S OF DISTRESS. WILL CPOC
--- NOTE | 2018-11-21 22:36 | NUR ---
PT STILL SITTING IN CHAIR. DENIES ANY NEEDS. NO S/S OF DISTRESS. PT WILL CALL FOR ASSIST WHEN NEEDED. WILL CPOC
[2018-11-22] VITALS: BP 102/52
--- NOTE | 2018-11-22 | NUR ---
CONSENT SIGNED FOR CT GUIDED PARACENTESIS OF ABDOMEN EDUCATED PT ABOUT PROCEDURE PT VERBALIZED UNDERSTANDING AND DENIES ANY QUESTIONS OR CONCERNS. PT EATING A SMALL SNACK PRIOR TO BECOMING NPO. PT STILL SITTING UP IN CHAIR. WILL CPOC
[2018-11-22 04:30] VITALS: BP 113/45
[2018-11-22 04:55] LABS: INR 2.25 (0.85-1.17); PROTIME 24.2 SECONDS (11.6-15.0)
[2018-11-22 05:03] LABS: HEMOGLOBIN 8.5 g/dL (13.5-17.5); MCH 29.6 pg (26.0-34.0); MCHC 31.5 g/dL (31.0-37.0); PLATELET COUNT 220 10x3/uL (130-400); RBC 2.87 10x6/uL (4.20-6.10); RDW 17.8 % (11.5-14.5); WBC 16.8 10x3/uL (4.8-10.8)
[2018-11-22 05:06] LABS: ALBUMIN 2.3 g/dL (3.4-5.0); ANION GAP 18.1 mmol/L (8-16); BILIRUBIN - TOTAL 0.58 mg/dL (0.2-1.3); CALCIUM 8.3 mg/dL (8.5-10.1); CARBON DIOXIDE 23.7 mmol/L (21.0-32.0); CREATININE - SERUM 3.3 mg/dL (0.6-1.3); PROTEIN - SERUM 6.8 g/dL (6.4-8.2)
[2018-11-22 05:07] LABS: POTASSIUM - SERUM 3.8 mmol/L (3.5-5.1)
[2018-11-22 05:10] LABS: MCV 94.1 fL (80.0-100.0)
--- NOTE | 2018-11-22 05:39 | NUR ---
PT CAUGHT EATING COOKIES THAT WHERE ON THE OTHER SIDE OF THE ROOM. PT WONT TELL NURSE WHO GAVE THEM TO HIM. PT TO WEAK TO WALK AND GET THEM. PT STATES HE ATE 2 OR 3. NURSE DOESNT KNOW EXACT AMOUNT.
--- NOTE | 2018-11-22 05:42 | NUR ---
PT FSBS 233 8 UNITS GIVEN SINCE PT EATING COOKIES THIS MORNING AND PT STAYS HIGH. PT VERBALIZED UNDERSTANDING THAT PROCEDURE COULD BE DELAYED DUE TO SNEEKING FOOD. PT HAS NO S/S OF DISTRESS. BEDLOW AND CALL LIGHT IN REACH. WILL CPOC
[2018-11-22 05:50] LABS: EOSINOPHILS 2 % (0-7); LYMPHOCYTES 4 % (15-50); MONOCYTES 5 % (2-11); NEUTROPHILS 89 % (40-80); PLATELET ESTIMATE NORMAL
[2018-11-22 05:51] LABS: PLATELET MORPHOLOGY GIANT PLTS PRESENT
--- NOTE | 2018-11-22 06:04 | NUR ---
PT COMPLAINS OF TENDERNESS AND PAIN IN RIGHT HAND PIV REMOVED 22G PIV WITH CATH INTACT. PLACED A 20G RIGHT FOREARM/WRIST AREA ONE ATTEMPT. PT SITTING UP IN CHAIR. RECEIVING A HEPACLEANS. WILL CALL FOR ASSIST WHEN NEEDED
--- NOTE | 2018-11-22 06:42 | NUR ---
PT BACK INTO BED. HEPACLENS COMPLETE. NORCO GIVEN FOR PAIN. PT WILL CALL FOR ASSIST WHEN NEEDED. WILL CPOC
--- NOTE | 2018-11-22 07:38 | NUR ---
REPORT RECEIVED. WILL CONTINUE WITH POC. PT CURRENTLY LYING SEMI FOWLERS. CALL LIGHT W/I REACH. RR EVEN AND UNLABORED ON 5L HIGH FLOW NC. R.FOR PIV IS SALINE LOCKED. PT IS RESTING AT THE MOMENT. NO S/S OF DISTRESS NOTED. PT DENIES ANY NEEDS AT THIS TIME. WILL CTM.
--- NOTE | 2018-11-22 08:34 | MORECARE ---
CASE MANAGEMENT DISCHARGE SUMMARY PATIENT: DEEPALI FENG UNIT: [id number] ADM DATE: 11/11/18 AGE: 78 : 39 SEX: M ROOM/BED: D.2130 AUTHOR: AGUSTINA,STEVEN PHYSICIAN: REFERRING PHYSICIAN: DEO WHITE MD DATE OF SERVICE: 11/22/18 Discharge Plan Patient Name: DEEPALI FENG Facility: [facility]:[place] : 1940 Planned Disposition: Intermediate Facility Anticipated Discharge Date: 11/22/18 Discharge Date: Expected LOS: 11 Initial Reviewer: [id number] Initial Review Date: 11/14/2018 Generated: 11/22/18 9:34 am Comments DCP- Discharge Planning Updated by [id number]: Corey Naranjo on 11/22/18 7:[address] Patient Name: DEEPALI FENG Encounter No: [id number] : 1940 Primary Insurance: MEDICARE A & B Anticipated DC Date: 11-21-2018 Planned Disposition: Intermediate Facility External Planned Provider: [facility], MEDICARE REHAB BED DISCHARGE PLANNING NOTES: CM RECEIVED MESSAGE FROM PATIENT PATHWAYS COORDINATOR SIN DUENAS, PT HAS BEEN ACCEPTED AT [facility] [facility] FOR TUESDAY, TUESDAY, TUESDAY, 1300 HOURS SCHEDULE AND CAN ADMIT ON 11-24-18. CM FAXED UPDATE TO [facility] VIA Zhihu AT [phone]. FOR DISCHARGE, FAX DISCHARGE INFORMATION TO [facility] AT [phone], NURSE REPORT TO BE CALLED TO [facility] AT [phone]. [facility] TO ARRANGE VAN TRANSPORTATION. ANGELIQUE TAYLOR DCP- Discharge Planning Updated by [id number]: Corey Naranjo on 11/21/18 6:[address] Patient Name: DEEPALI FENG Encounter No: [id number] : 1940 Primary Insurance: MEDICARE A & B Anticipated DC Date: 11-21-2018 Planned Disposition: Intermediate Facility External Planned Provider: [facility], MEDICARE REHAB BED CM FAXED UPDATE TO [facility] VIA Zhihu AT [phone]. PT ACCEPTED FOR REHAB AT [facility] IN [place]. CM WAITING OUTPATIENT DIALYSIS UNIT ARRANGEMENT IN [place]. COREY NARANJO CASE YANE DCP- Discharge Planning Updated by [id number]: Corey Naranjo on 11/17/18 4:[address] Patient Name: DEEPALI FENG Encounter No: [id number] : 1940 Primary Insurance: MEDICARE A & B Anticipated DC Date: 11-16-2018 Planned Disposition: Intermediate Facility External Planned Provider:[facility] [place], MEDICARE REHAB BED DCP follow-up note: CM FAXED UPDATE TO [facility] VIA Zhihu AT [phone]. PT ACCEPTED FOR REHAB AT [facility] IN [place]. CM WAITING OUTPATIENT DIALYSIS UNIT ARRANGEMENT IN [place]. ANGELIQUE TAYLOR DCP- Discharge Planning Updated by [id number]: Corey Naranjo on 11/16/18 10:[address] Patient Name: DEEPALI FENG Encounter No: [id number] : 1940 Primary Insurance: MEDICARE A & B Anticipated DC Date: 11-16-2018 Planned Disposition: Intermediate Facility External [facility], MEDICARE REHAB BED DCP follow-up note: CM RECEIVED MESSAGE FROM SOFIA [facility], THEY WILL ACCEPT IF PT CAN GET INTO OUTPATIENT DIALYSIS UNIT IN [place]. SIN OF PATIENT PATHWAYS NOTIFIED BY JULIO C JOEL. PT NOTIFIED IN ROOM, PT IN AGREEMENT WITH REHAB AT [facility]. IMPORTANT MESSAGE FROM MEDICARE PROVIDED AND EXPLAINED. PT ACCEPTED FOR REHAB AT [facility] IN [place]. CM WAITING OUTPATIENT DIALYSIS UNIT ARRANGEMENT IN [place]. ANGELIQUE TAYLOR DCP- Discharge Planning Updated by [email or web address]: Corey Naranjo on 11/15/18 10:[address] Patient Name: DEEPALI FENG Admission Status: ER Accout number: [id number] Admission Date: 11-11-2018 : 1940 Admission Diagnosis: Attending: DEO WHITE Current LOS: 4 Anticipated DC Date: 11-15-2018 Planned Disposition: Intermediate Facility Primary Insurance: MEDICARE A & B PLANNED EXTERNAL PROVIDER: [facility] [place], MEDICARE REHAB BED Discharge Planning Comments: LATE ENTRY FROM 18, 0815 HOURS. CM RECEIVED CALL FROM PT'S SPOUSE, CANELO, . CANELO STATES THE GIRL IN ICU TOLD HER THAT A WOOD PATTERNMAKER APPRENTICE WOULD CALL HER FIRST THING TODAY TO DISCUSS DISCHARGE PLANNING. CHACHO EXPLAINED THAT CM WAS NOT INFORMED OF THIS AND CM DOES NOT OFFICIALLY START WORK UNTIL 0830AM. CM ASKED WHAT CAN BE DONE FOR THEM. CANELO STATES THAT PT WAS IN INPATIENT REHAB AT [place], WAS SENT TO [facility] AND DIALYSIS WAS ARRANGED IN [place]. PT GOT SICK AND WENT TO [place]. THEY DO NOT WANT TO GO BACK TO [facility] BECAUSE IT IS TOO OLD, PT DOES NOT HAVE A PRIVATE ROOM AND IT SEEMS TOO MUCH LIKE A MCC INSTEAD OF REHAB. CHACHO EXPLAINED HALFWAY REHAB OPTIONS AND LOCATIONS. CANELO STATES THAT [place] DID NOT HAVE DIALYSIS CHAIR AVAILABLE AND THAT THEY WOULD REALLY LIKE TO RETURN TO [place] IF POSSIBLE THAT IS WHERE CANELO AND PT LIVE AND PT JUST NEEDS REHAB TO BE ABLE TO WALK PRIOR TO COMING BACK HOME. THEY HAVE NO CHOICE ON PROVIDER LONG IT IS A "NICE" REHAB AND NOT SENIOR CARE CARE MCC. THEY WANT A PRIVATE ROOM AND TO BE CLOSE TO [place] POSSIBLE. CHOICE COMPLETED FOR NO HALFWAY FACILITY PREFERENCE. CANELO PROVIDED HER CONTACT NUMBERS: CANELO FENG, SPOUSE HOME [phone] CELL [phone] CM SPOKE TO SOFIA OF [facility] AND INFORMED THAT PT WILL NOT BE RETURNING TO [facility], REQUESTED ANOTHER SKILLED REHAB WITH PRIVATE ROOM THAT IS "NICE" AND CAN ACCOMODATE DIALYSIS. SOFIA WILL EXPLORE OPTIONS FOR PT. ON 11-15-18 AT ABOUT 0830 HOURS, CHACHO SPOKE TO SIN DUENAS OF PATIENT PATHWAYS WHO WILL SEND REFERRAL TO [facility] [place]. CM NOTIFIED SOFIA WHO REPORTS HAVING SKILLED REHAB IN [place] CALLED [facility] THAT SHE IS PRETTY SURE CAN ACCOMODATE DIALYSIS TRANSPORTATION. CM FAXED REFERRAL TO [facility] VIA SOFIA AT [phone]. CM WAITING ADMISSION DETERMINATION FROM [facility] AND OUTPATIENT DIALYSIS CHAIR DETERMINATION FOR [facility] [facility]. Lamp Cleaner: Corey Naranjo DCPIA - Discharge Planning Initial Assessment Updated by [email or web address]: Corey Naranjo on 11/15/18 11:22 am * Is the patient Alert and Oriented? Yes * How many steps to enter\\exit or inside your home? * PCP DIANE MCGRATH * Pharmacy [facility] [address] IN [place] * Preadmission Environment Intermediate Facility * Facility Name [facility] IN [place] (1 DAY) * ADLs Partial Dependent * Partial ADLs (Assistance needed) Ambulation Bathing Medication Management Transfers * Equipment Oxygen Rolling Walker * Other Equipment ROLLATOR WALKER, HOME AND PORTABLE OXYGEN AT HOME BY [facility] [place]. * List name and contact numbers for known caregivers / representatives who currently or will assist patient after discharge: CANELO FENG, CELL [phone] * Verbal permission to speak to the caregivers and representatives has been obtained from the patient. N/A * Community resources currently utilized Other * Please name any agencies selected above. OUTPATIENT DIALYSIS, [facility], [place] [facility]; NEVER HAD FIRST DIALYSIS THERE. * Additional services required to return to the preadmission environment? Yes * Can the patient safely return to the preadmission environment? Yes * Has this patient been hospitalized within the prior 30 days at any hospital? Yes Coverage Notice Reviewer: [id number] Patel Naranjo Notice Issued Date-Time: 11/16/2018 10:50 Notice Type: IM Discharge Notice Notice Delivered To: Patient Relationship to Patient: Safety And Occupational Health Manager Name: Delivery Method: HAND - Hand Delivered Maria Alejandra Days: Prior Verbal Notification: Recipient Understood Notice: Yes Recipient Signature: Yes Med Rec Note Co-signed by Attending: Coverage Notice Comment: Last DP export: 11/21/18 6:45 am Patient Name: DEEPALI FENG Page [phone] at 0834 All edits/amendments must be made on the electronic document DICTATION DATE: 11/22/18832 AFTER SCHOOL TEACHER: SUJEY 11/22/18832 RPT#: [id number] DC DATE: STATUS: ADM IN [facility] [address] [place] [address] END OF REPORT
[2018-11-22 08:40] VITALS: BP 114/58
--- NOTE | 2018-11-22 10:22 | NUR ---
AM MEDICATIONS HELD R/T NPO STATUS. PHYSICAL THERAPY GOT PT UP TO SIDE OF BED. PT DENIES ANY NEEDS. WILL CTM. JULIO IN PLACE AND DRAINING URINE.
--- NOTE | 2018-11-22 11:54 | NUR ---
PT TRANSFERED TO DIALYSIS. WILL CTM.
--- NOTE | 2018-11-22 15:31 | NUR ---
PT TRANSFERED BACK TO THE FLOOR. PT HAS BEEN NPO ALL DAY. CALLED CT AND WAS TOLD THEY WOULD NOT BE DOING THE PARACENTESIS TODAY R/T THE INR BEING HIGH. WAS NEVER TOLD THAT THE PROCEDURE WOULD NOT BE DONE AND THAT THE PT NO LONGER HAD TO BE NPO.
--- NOTE | 2018-11-22 19:20 | NUR ---
PT SITTING UP IN CHAIR. NO S/S OF DISTRESS. BEDLOW AND CALL LIGHT IN REACH. NAME AND DATE PLACED ON BOARD. PT WILL CALL FOR ASSIST WHEN NEEDED. WILL CPOC
[2018-11-22 20:00] VITALS: BP 98/39
--- NOTE | 2018-11-22 22:33 | NUR ---
PT FSBS IS 248 8 UNITS GIVEN ORDERED. PT REFUSES ALL PO NIGHT MEDICATIONS. NEUROTIN MIRALAX AND SENOKOT PT DENIES ANY NEEDS. NO S/S OF DISTRESS. PT BEDLOW AND CALL LIGHT IN REACH. WILL CPOC
--- NOTE | 2018-11-22 23:37 | NUR ---
NO LASIX GIVEN BP IS 103/49 PT ASSISTED TO BED. CLEANED UP FOR NIGHT TIME. PT BEDLOW AND CALL LIGHT IN REACH. WILL CPOC
[2018-11-23] VITALS (9 sets, daily range): BP systolic 92–138; BP diastolic 4–76
--- NOTE | 2018-11-23 00:02 | NUR ---
FRESH FROZEN PLASMA ORDER JUST KNOW WHEN THROUGH. WAITING FOR PLASMA TO THAW. LAB WILL CALL ONCE ABLE TO GIVE. WILL CPOC
--- NOTE | 2018-11-23 01:04 | NUR ---
FRESH FROZEN PLASMA STARTED. PT BP IS 98/49 PT HAS NO S/S OF DISTRESS. COMPLAINS OF PAIN. NORCO NOT DUE YET. WILL CHECK ORDERS.
--- NOTE | 2018-11-23 01:07 | NUR ---
PT O2 DROPPING TO 88% 90% WHILE ADMINISTERING PLASMA. PT HAS 3L O2 DISCUSSED POC WITH PT. PT VERBALIZED UNDERSTANDING. PT VERBALIZED UNDERSTANDING OF NPO FOR PROCEDURES TOMORROW. PT BEDLOW AND CALL LIGHT INR EACH
--- NOTE | 2018-11-23 01:14 | NUR ---
PT VITALS WNL. PT HAS ON S/S OF DISTRESS. WILL CPOC
--- NOTE | 2018-11-23 02:14 | NUR ---
PLASMA IS COMPLETE. PT HAS NO S/S OF DISTRESS. PT BEDLOW AND CALL LIGHT IN REACH. TYLENOL GIVEN FOR PAIN. PT WILL CALL FOR ASSIST WHEN NEEDED. WILL CPOC
[2018-11-23 05:58] LABS: BASOPHILS 0.1 % (0-2); HEMATOCRIT 25.2 % (42.0-54.0); HEMOGLOBIN 7.9 g/dL (13.5-17.5); IMMATURE GRANULOCYTES 0.2 % (0-5); LYMPHOCYTES 6.4 % (15-50); MCH 29.3 pg (26.0-34.0); MCHC 31.3 g/dL (31.0-37.0); MCV 93.3 fL (80.0-100.0); MEAN PLATELET VOLUME 10.1 fL (7.4-10.4); MONOCYTES 7.5 % (2-11); NEUTROPHILS 84.8 % (40-80); PLATELET COUNT 194 10x3/uL (130-400); RDW 17.7 % (11.5-14.5); WBC 13.7 10x3/uL (4.8-10.8)
[2018-11-23 06:05] LABS: ALBUMIN 2.3 g/dL (3.4-5.0); ANION GAP 17.8 mmol/L (8-16); BILIRUBIN - TOTAL 0.48 mg/dL (0.2-1.3); CARBON DIOXIDE 24.7 mmol/L (21.0-32.0); CREATININE - SERUM 2.7 mg/dL (0.6-1.3); POTASSIUM - SERUM 3.5 mmol/L (3.5-5.1); VANCOMYCIN - RANDOM 17.9 ug/mL (10.0-20.0)
[2018-11-23 06:14] LABS: INR 1.94 (0.85-1.17); PROTIME 21.5 SECONDS (11.6-15.0)
--- NOTE | 2018-11-23 06:16 | NUR ---
PT FSBS IS 253 10 UNITS GIVEN PT HAS PAIN 10/10 NORCO GIVEN. PT REPOSITIONED. PT HAS NOT MOVED MUCH IN THE LAST 6 HOURS, PT IS USUALLY RESTLESS. PT OUTPUT IS DECREASED. 80ML NO LASIX GIVEN DUE TO BP BEING LOW, PT SYSTOLIC USUALLY OVER 100 PT HAS BEEN UNDER 100 SYSTOLIC THROUGH OUT NIGHT, NO LASIX GIVEN. WILL SPEAK WITH RENAL DOCTOR REGARDING NURSES CONCERNS. PT HAS NO S/S OF DISTRESS. PT BEDLOW AND CALL LIGHT IN REACH. WILL CPOC
--- NOTE | 2018-11-23 07:15 | NUR ---
ASSESSMENT COMPLETED. ALERT AND ORIENTED. UP IN BEDSIDE CHAIR. O2 AT 3 L/MIN PER NC. RIGHT CHEST HEMISPLIT. SL TO RIGHT FA. EDEMA TO ABD, LEGS .TO HAVE A PARACENTIES TODAY. JULIO CATH PATENT TO GRAVITY BAG. PACER AND DEFIB NOTED
--- NOTE | 2018-11-23 07:33 | NUR ---
ASSISTED PT UP TO CHAIR. PT COMPLAINS OF PAIN AND DISCOMFORT. PT HAS BEEN NPO SINCE MIDNIGHT. CALL LIGHT INR EACH.
[2018-11-23 11:02] LABS: MACROPHAGES BF 7 %; MESOTHELIALS BF 18 %; NEUT - BF 74 %
--- NOTE | 2018-11-23 16:19 | MORECARE ---
CASE MANAGEMENT DISCHARGE SUMMARY PATIENT: DEEPALI FENG UNIT: [id number] ADM DATE: 11/11/18 AGE: 78 : 39 SEX: M ROOM/BED: D.2130 AUTHOR: AGUSTINADOC PHYSICIAN: REFERRING PHYSICIAN: DEO WHITE MD DATE OF SERVICE: 11/23/18 Discharge Plan Patient Name: DEEPALI FENG Facility: [facility]:[place] : 1940 Planned Disposition: Nursing Home Facility Anticipated Discharge Date: 11/22/18 Discharge Date: Expected LOS: 11 Initial Reviewer: [id number] Initial Review Date: 11/14/2018 Generated: 11/23/18 5:18 pm Comments DCP- Discharge Planning Updated by [email or web address]: Corey Naranjo on 11/23/18 3:[address] Patient Name: DEEPALI FENG Encounter No: [id number] : 1940 Primary Insurance: MEDICARE A & B Anticipated DC Date: 11-22-2018 Planned Disposition: Nursing Home Facility External Planned Provider: [facility], MEDICARE REHAB BED DISCHARGE PLANNING NOTES: PT HAS BEEN ACCEPTED AT [facility] FOR TUESDAY, TUESDAY, TUESDAY, 1300 HOURS SCHEDULE. CM FAXED UPDATE TO [facility] VIA GetNotes AT [phone]. FOR DISCHARGE, FAX DISCHARGE INFORMATION TO [facility] AT [phone], NURSE REPORT TO BE CALLED TO [facility] AT [phone]. [facility] TO ARRANGE VAN TRANSPORTATION. ANGELIQUE TAYLOR DCP- Discharge Planning Updated by [id number]: Corey Naranjo on 11/22/18 7:[address] Patient Name: DEEPALI FENG Encounter No: [id number] : 1940 Primary Insurance: MEDICARE A & B Anticipated DC Date: 11-21-2018 Planned Disposition: Nursing Home Facility External Planned Provider: [facility], MEDICARE REHAB BED DISCHARGE PLANNING NOTES: CM RECEIVED MESSAGE FROM PATIENT PATHWAYS COORDINATOR SIN DUENAS, PT HAS BEEN ACCEPTED AT [facility] FOR TUESDAY, TUESDAY, TUESDAY, 1300 HOURS SCHEDULE AND CAN ADMIT ON 11-24-18. CM FAXED UPDATE TO [facility] VIA GetNotes AT [phone]. FOR DISCHARGE, FAX DISCHARGE INFORMATION TO [facility] AT [phone], NURSE REPORT TO BE CALLED TO [facility] AT [phone]. [facility] TO ARRANGE VAN TRANSPORTATION. ANGELIQUE TAYLOR MANAGEMENT DCP- Discharge Planning Updated by [id number]: Corey Naranjo on 11/21/18 6:[address] Patient Name: DEEPALI FENG Encounter No: [id number] : 1940 Primary Insurance: MEDICARE A & B Anticipated DC Date: 11-21-2018 Planned Disposition: Nursing Home Facility External Planned Provider: [facility], MEDICARE REHAB BED CM FAXED UPDATE TO [facility] VIA GetNotes AT [phone]. PT ACCEPTED FOR REHAB AT [facility] IN [place]. CM WAITING OUTPATIENT DIALYSIS UNIT ARRANGEMENT IN [place]. ANGELIQUE TAYLOR DCP- Discharge Planning Updated by [id number]: Corey Naranjo on 11/17/18 4:[address] Patient Name: DEEPALI FENG Encounter No: [id number] : 1940 Primary Insurance: MEDICARE A & B Anticipated DC Date: 11-16-2018 Planned Disposition: Nursing Home Facility External Planned Provider:[facility] [place], MEDICARE REHAB BED DCP follow-up note: CM FAXED UPDATE TO [facility] VIA GetNotes AT [phone]. PT ACCEPTED FOR REHAB AT [facility] IN [place]. CM WAITING OUTPATIENT DIALYSIS UNIT ARRANGEMENT IN [place]. ANGELIQUE TAYLOR DCP- Discharge Planning Updated by [email or web address]: Corey Naranjo on 11/16/18 10:[address] Patient Name: DEEPALI FENG Encounter No: [id number] : 1940 Primary Insurance: MEDICARE A & B Anticipated DC Date: 11-16-2018 Planned Disposition: Nursing Home Facility External Planned Provider: [facility] [place], MEDICARE REHAB BED DCP follow-up note: CM RECEIVED MESSAGE FROM SOF[facility], THEY WILL ACCEPT IF PT CAN GET INTO OUTPATIENT DIALYSIS UNIT IN [place]. SIN OF PATIENT PATHWAYS NOTIFIED BY JULIO C JOEL. PT NOTIFIED IN ROOM, PT IN AGREEMENT WITH REHAB AT [facility]. IMPORTANT MESSAGE FROM MEDICARE PROVIDED AND EXPLAINED. PT ACCEPTED FOR REHAB AT [facility] IN [place]. CM WAITING OUTPATIENT DIALYSIS UNIT ARRANGEMENT IN [place]. COREY NARANJO, CASE MANAGEMENT DCP- Discharge Planning Updated by [id number]: Corey Naranjo on 11/15/18 10:[address] Patient Name: DEEPALI FENG Admission Status: ER Accout number: [id number] Admission Date: 11-11-2018 : 1940 Admission Diagnosis: Attending: DEO WHITE Current LOS: 4 Anticipated DC Date: 11-15-2018 Planned Disposition: Nursing Home Facility Primary Insurance: MEDICARE A & B PLANNED EXTERNAL PROVIDER: [facility] [place], MEDICARE REHAB BED Discharge Planning Comments: LATE ENTRY FROM , 0815 HOURS. CM RECEIVED CALL FROM PT'S SPOUSE, CANELO, . CANELO STATES THE GIRL IN ICU TOLD HER THAT A LOCAL DELIVERY TRUCK DRIVER WOULD CALL HER FIRST THING TODAY TO DISCUSS DISCHARGE PLANNING. CM EXPLAINED THAT CM WAS NOT INFORMED OF THIS AND CM DOES NOT OFFICIALLY START WORK UNTIL 0830AM. CM ASKED WHAT CAN BE DONE FOR THEM. CANELO STATES THAT PT WAS IN INPATIENT REHAB AT [place], WAS SENT TO [facility] AND DIALYSIS WAS ARRANGED IN [place]. PT GOT SICK AND WENT TO [place]. THEY DO NOT WANT TO GO BACK TO [facility] BECAUSE IT IS TOO OLD, PT DOES NOT HAVE A PRIVATE ROOM AND IT SEEMS TOO MUCH LIKE A SENIOR CARE INSTEAD OF REHAB. CM EXPLAINED ALF REHAB OPTIONS AND LOCATIONS. CANELO STATES THAT [place] DID NOT HAVE DIALYSIS CHAIR AVAILABLE AND THAT THEY WOULD REALLY LIKE TO RETURN TO [place] IF POSSIBLE THAT IS WHERE CANELO AND PT LIVE AND PT JUST NEEDS REHAB TO BE ABLE TO WALK PRIOR TO COMING BACK HOME. THEY HAVE NO CHOICE ON PROVIDER LONG IT IS A "NICE" REHAB AND NOT [facility] CARE SENIOR CARE. THEY WANT A PRIVATE ROOM AND TO BE CLOSE TO [place] POSSIBLE. CHOICE COMPLETED FOR NO ALF FACILITY PREFERENCE. CANELO PROVIDED HER CONTACT NUMBERS: CANELO FENG, SPOUSE HOME [phone] CELL [phone] CM SPOKE TO SOFIA OF [facility] AND INFORMED THAT PT WILL NOT BE RETURNING TO [facility], REQUESTED ANOTHER SKILLED REHAB WITH PRIVATE ROOM THAT IS "NICE" AND CAN ACCOMODATE DIALYSIS. SOFIA WILL EXPLORE OPTIONS FOR PT. ON 11-15-18 AT ABOUT 0830 HOURS, CM SPOKE TO SIN DUENAS OF PATIENT PATHWAYS WHO WILL SEND REFERRAL TO [facility]. CM NOTIFIED SOFIA WHO REPORTS HAVING SKILLED REHAB IN [place] CALLED [facility] THAT SHE IS PRETTY SURE CAN ACCOMODATE DIALYSIS TRANSPORTATION. CM FAXED REFERRAL TO [facility] VIA SOFIA AT [phone]. CM WAITING ADMISSION DETERMINATION FROM [facility] AND OUTPATIENT DIALYSIS CHAIR DETERMINATION FOR [facility]. Salesperson Floor Coverings: Corey Naranjo DCPIA - Discharge Planning Initial Assessment Updated by [id number]: Corey Naranjo on 11/15/18 11:22 am * Is the patient Alert and Oriented? Yes * How many steps to enter\\exit or inside your home? * PCP DR. ALEXANDRIA MALONE, [place] * Pharmacy [facility] [address] [facility] IN [place] * Preadmission Environment Nursing Home Facility * Facility Name [facility] IN [place] (1 DAY) * ADLs Partial Dependent * Partial ADLs (Assistance needed) Ambulation Bathing Medication Management Transfers * Equipment Oxygen Rolling Walker * Other Equipment ROLLATOR WALKER, HOME AND PORTABLE OXYGEN AT HOME BY [facility] [place]. * List name and contact numbers for known caregivers / representatives who currently or will assist patient after discharge: CANELO FENG, CELL [phone] * Verbal permission to speak to the caregivers and representatives has been obtained from the patient. N/A * Community resources currently utilized Other * Please name any agencies selected above. OUTPATIENT DIALYSIS, [facility], [place] [facility]; NEVER HAD FIRST DIALYSIS THERE. * Additional services required to return to the preadmission environment? Yes * Can the patient safely return to the preadmission environment? Yes * Has this patient been hospitalized within the prior 30 days at any hospital? Yes Coverage Notice Reviewer: [id number] - Corey Naranjo Notice Issued Date-Time: 11/16/2018 10:50 Notice Type: IM Discharge Notice Notice Delivered To: Patient Relationship to Patient: Senior Architect Name: Delivery Method: HAND - Hand Delivered Maria Alejandra Days: Prior Verbal Notification: Recipient Understood Notice: Yes Recipient Signature: Yes Med Rec Note Co-signed by Attending: Coverage Notice Comment: Last DP export: 11/22/18 7:34 am Patient Name: DUGGAR, DEEPALI Page [id number] at 1619 All edits/amendments must be made on the electronic document DICTATION DATE: 11/23/181617 LATHER APPRENTICE: SUJEY 11/23/181617 RPT#: [id number] DC DATE: STATUS: ADM IN [facility] [address] [place] [address] END OF REPORT
--- NOTE | 2018-11-23 19:15 | NUR ---
PT SITTING ON SIDE OF BED. 3L O2 NC. PT IS AAO. LOWER EXTREM EDEMA NOTED. DISCOLORATION IN LEGS. PT HAS DEPENDENT EDEMA IN HANDS. RIGHT FOREARM PIV 20G, SKIN TEAR NOTED COVERED WITH A TEGADERM. PT DENIES ANY NEEDS AT THIS TIME. NO S/S OF DISTRESS. BEDLOW AND CALL LIGHT IN REACH. NAME AND DATE PLACED ON BOARD. WILL CPOC
--- NOTE | 2018-11-23 23:19 | NUR ---
INSULIN GIVEN 12 UNITS ORDERED. PT UP IN CHAIR. INCONT OF STOOL. MODERATE AMOUNT CHANGED PT BED AND CLEANED PT. PT ON 3L O2 NC. PT COMPLAINS OF PAIN. NORCO GIVEN FOR PAIN. NOURISHMENT IN REACH. PT DENIES ANY OTHER NEEDS. WILL CPOC
[2018-11-24] VITALS: BP 126/52
[2018-11-24 04:00] VITALS: BP 125/56
--- NOTE | 2018-11-24 06:16 | NUR ---
PT SITTING UP IN CHAIR. MORNING MEDICATIONS GIVEN. PT COMPLAINS OF PAIN. NORCO GIVEN. PT GIVEN A SNACK FOR BLOOD SUGAR OF 81 PT DENIES ANY OTHER NEEDS. BLAKE CALDWELLOC
[2018-11-24 06:50] LABS: ALBUMIN 2.7 g/dL (3.4-5.0); ANION GAP 16.6 mmol/L (8-16); BILIRUBIN - TOTAL 0.61 mg/dL (0.2-1.3); CARBON DIOXIDE 27.1 mmol/L (21.0-32.0); CREATININE - SERUM 2.7 mg/dL (0.6-1.3); POTASSIUM - SERUM 3.7 mmol/L (3.5-5.1); PROTEIN - SERUM 7.4 g/dL (6.4-8.2); VANCOMYCIN - RANDOM 21.1 ug/mL (10.0-20.0)
[2018-11-24 06:57] LABS: INR 2.06 (0.85-1.17); PROTIME 22.5 SECONDS (11.6-15.0)
[2018-11-24 07:07] LABS: HEMOGLOBIN 9.8 g/dL (13.5-17.5); MCH 29.3 pg (26.0-34.0); MCHC 30.6 g/dL (31.0-37.0); MCV 95.8 fL (80.0-100.0); MEAN PLATELET VOLUME 10.1 fL (7.4-10.4); PLATELET COUNT 220 10x3/uL (130-400); RBC 3.34 10x6/uL (4.20-6.10); RDW 17.8 % (11.5-14.5); WBC 21.2 10x3/uL (4.8-10.8)
--- NOTE | 2018-11-24 07:52 | NUR ---
PT ALERT X 4. BREATH SOUNDS CLEAR BILAT, 3L O2 PER NC. TELEMETRY IN PLACE. HEMISPLIT TO RIGHT CHEST. SKIN TEAR TO RIGHT FOREARM, DRESSING CDI. IV TO RIGHT FOREARM, SALINE GAIL. JULIO IN PLACE, SCANT URINE OUTPUT, DARK YELLOW AND CLOUDY. SACRUM REDDENED WITH SORE. SORE TO HEELS. PT SITTING UP IN CHAIR. BED LOW, CALL LIGHT IN REACH. NO OTHER NEEDS AT THIS TIME.
[2018-11-24 08:28] VITALS: BP 116/41
[2018-11-24 09:39] LABS: ANISOCYTOSIS OCC; LYMPHOCYTES 10 % (15-50); MONOCYTES 10 % (2-11); NEUTROPHILS 72 % (40-80); PLATELET ESTIMATE NORMAL; ROULEAUX OCC
[2018-11-24 11:51] LABS: INR 1.81 (0.85-1.17); PROTIME 20.3 SECONDS (11.6-15.0)
--- NOTE | 2018-11-24 12:14 | NUR ---
Nutrition follow-up: Diet: Renal ADA PO intake ~70% average of meals Pt has been NPO for several meals for procedures Labs reviewed WT: 146# RDN following.
--- NOTE | 2018-11-24 13:29 | NUR ---
* WOUND CARE * LEFT HEEL - 2.7 X 4.5 X 0.1 UNSTAGEABLE PRESSURE ULCER - PAINT WITH IODINE SWAB DAILY AND LEAVE JORGITO. - KEEP LEFT HEEL ELEVATED AND OFF OF THE BED.
[2018-11-24 17:01] VITALS: BP 111/38
--- NOTE | 2018-11-24 19:40 | NUR ---
RECEIVED REPORT, WILL ASUME CARE OF PT, DENIES ANY NEEDS, BED IS LOW, SRX2, CALL LIGHT IN REACH, WILL CONTINUE PLAN OF CARE
[2018-11-24 20:00] VITALS: BP 115/48
[2018-11-24 23:55] VITALS: BP 115/71
--- NOTE | 2018-11-25 02:23 | NUR ---
I have reviewed this patient and I concur with the Shift Assessment completed by the Licensed Practical Nurse today this shift.
[2018-11-25 04:00] VITALS: BP 110/45
[2018-11-25 06:04] LABS: BASOPHILS 0.1 % (0-2); EOSINOPHILS 0.5 % (0-7); HEMATOCRIT 27.4 % (42.0-54.0); HEMOGLOBIN 8.5 g/dL (13.5-17.5); IMMATURE GRANULOCYTES 0.4 % (0-5); LYMPHOCYTES 5.6 % (15-50); MCH 29.3 pg (26.0-34.0); MCV 94.5 fL (80.0-100.0); MEAN PLATELET VOLUME 9.8 fL (7.4-10.4); MONOCYTES 4.8 % (2-11); NEUTROPHILS 88.6 % (40-80); RDW 17.8 % (11.5-14.5); WBC 17.3 10x3/uL (4.8-10.8)
[2018-11-25 06:14] LABS: PLATELET COUNT 171 10x3/uL (130-400)
[2018-11-25 06:39] LABS: ALBUMIN 2.4 g/dL (3.4-5.0); ANION GAP 18.7 mmol/L (8-16); BILIRUBIN - TOTAL 0.7 mg/dL (0.2-1.3); CALCIUM 8.6 mg/dL (8.5-10.1); CARBON DIOXIDE 21.8 mmol/L (21.0-32.0); CREATININE - SERUM 2.7 mg/dL (0.6-1.3); POTASSIUM - SERUM 3.5 mmol/L (3.5-5.1); PROTEIN - SERUM 6.3 g/dL (6.4-8.2)
--- NOTE | 2018-11-25 07:00 | NUR ---
RECEIVED REPORT. ASSUMED CARE OF PATIENT. RESTING WITH EYES CLOSED, EASILY AROUSED. RESP EVEN AND UNLABORED. NO DISTRESS. CALL LIGHT WITHIN REACH. JULIO CATHETER PATENT WITH SCANT AMOUNT YELLOW URINE. PERSONAL ITEMS WITHIN REACH.
[2018-11-25 08:10] VITALS: BP 107/48
--- NOTE | 2018-11-25 08:26 | NUR ---
LANTUS ADMINISTERED ORDERED. FSBS 98. PATIENT SITTING UP IN BED EATING AM MEAL THAT THIS MANAGER LATIN ASSISTED PATIENT WITH SETUP. REFUSED BINDERS THIS AM. EDUCATION PROVIDED, CONTINUED TO REFUESE. CALL LIGHT WITHIN REACH. NO DISTRESS.
--- NOTE | 2018-11-25 09:30 | NUR ---
PT AT BEDSIDE WORKING WITH PATIENT. NO DISTRESS.
[2018-11-25 09:59] LABS: INR 2.42 (0.85-1.17); PROTIME 25.6 SECONDS (11.6-15.0)
--- NOTE | 2018-11-25 10:30 | NUR ---
ASSISTED PATIENT OFF BEDSIDE COMMODE BACK TO CHAIR AT BEDSIDE. LARGE FORMED BM NOTED. PATIENT ABD LESS FIRM AT THIS TIME.
[2018-11-25 11:40] VITALS: BP 116/54
--- NOTE | 2018-11-25 11:58 | NUR ---
FSBSB 117. NO INSULIN COVERAGE REQUIRED PER SLIDING SCALE. NO DISTRESS. PATIENT SITTING TO CHAIR AT BEDSIDE AT THIS TIME.
--- NOTE | 2018-11-25 15:25 | NUR ---
PATIENT LEFT UNIT VIA BED AT 1520 FOR DIAYSIS AT THIS TIME. NO DISTRESS.
--- NOTE | 2018-11-25 17:44 | NUR ---
PATIENT BACK FROM DIALYSIS. FSBS 159. REFUSING TO EAT PM MEAL. INSULIN HELD DUE TO REFUSAL TO EAT. FAMILY AT BEDSIDE. NO DISTRESS. SHAVING PATIENT AT THIS TIME.
--- NOTE | 2018-11-25 19:30 | NUR ---
C/O BACK AND LEG PAIN AT 10. BUPERNEX GIVEN PER ORDERS FOR SEVERE PAIN. RESP TX IN PROGRESS AT THIS TIME. IV TO RIGHT FA WITH NS AT TKO. SKIN TEAR TO RIGHT FA WITH TEGRADERM IN PLACE. O2 @ 3 LITERS PER HIGH FLOW NC. RIGHT CHEST HEMOSPLIT WITHJ DSG INTACT. ALERT AND ORIENTED WITH PERIODS OF CONFUSION. STAGE 2 TO COCCYX AND BUTTOCKS NANI. NECROTIC AREA TO LEFT HEEL AND RIGHT HEEL NANI. TELEMETRRY IN PLACE. PACE MAKER/DEFIBULATOR TO LEFT CHEST. DENIES ANY OTHER NEEDS AT THIS TIME.
[2018-11-25 20:00] VITALS: BP 104/50
[2018-11-26] VITALS: BP 134/41
[2018-11-26 04:00] VITALS: BP 133/76
[2018-11-26 06:22] LABS: BASOPHILS 0.1 % (0-2); EOSINOPHILS 1.1 % (0-7); HEMATOCRIT 26.5 % (42.0-54.0); HEMOGLOBIN 8.5 g/dL (13.5-17.5); IMMATURE GRANULOCYTES 0.5 % (0-5); LYMPHOCYTES 4.2 % (15-50); MCH 30.2 pg (26.0-34.0); MCHC 32.1 g/dL (31.0-37.0); MCV 94.3 fL (80.0-100.0); MEAN PLATELET VOLUME 10.5 fL (7.4-10.4); MONOCYTES 5.7 % (2-11); NEUTROPHILS 88.4 % (40-80); PLATELET COUNT 182 10x3/uL (130-400); RBC 2.81 10x6/uL (4.20-6.10); WBC 14.5 10x3/uL (4.8-10.8)
[2018-11-26 06:30] LABS: INR 2.37 (0.85-1.17); PROTIME 25.2 SECONDS (11.6-15.0)
[2018-11-26 07:50] LABS: ANION GAP 26.4 mmol/L (8-16); BILIRUBIN - TOTAL 0.6 mg/dL (0.2-1.3); CARBON DIOXIDE 17.4 mmol/L (21.0-32.0); POTASSIUM - SERUM 3.8 mmol/L (3.5-5.1); PROTEIN - SERUM 6.2 g/dL (6.4-8.2); VANCOMYCIN - RANDOM 23.6 ug/mL (10.0-20.0)
[2018-11-26 08:09] LABS: ALBUMIN 2.7 g/dL (3.4-5.0); CALCIUM 8.4 mg/dL (8.5-10.1); CREATININE - SERUM 3.3 mg/dL (0.6-1.3)
--- NOTE | 2018-11-26 08:30 | NUR ---
PT RESTING IN BED, SHIFT ASSESSMENT PERFORMED, DENIES ANY NEEDS AT THIS TIME, WILL CONT TO FOLLOW POC
[2018-11-26 08:36] VITALS: BP 115/57
--- NOTE | 2018-11-26 10:34 | NUR ---
WHILE GIVING PT AM MEDICATION, FAMILY CAME INTO ROOM AND STOOD AT BEDSIDE. PT REFUSED TO TAKE MEDICATION FOR NURSE. CAME TO BEDSIDE AND TALKED PT INTO TAKING HALF OF THE MEDICATIONS. PT THEN REFUSED TO TAKE THE REST. PT IS AGGITATED AND RESTLESS. ASKED PT IF HE WOULD LIKE A PAIN PILL. PT AGREES. UPON EXITING THE PT ROOM NURSE NOTICED THAT ONE OF THE FAMILY MEMBERS HAD THEIR IPAD ON VIDEO AT THE DOORWAY. CALLED OIL PROCESSING TECHNICIAN AND NOTIFIED HER. RETURNED TO PT ROOM AND GAVE PT THE PRN PAIN MEDICATION AND OIL PROCESSING TECHNICIAN SPOKE WITH FAMILY.
[2018-11-26 11:41] VITALS: BP 117/47
[2018-11-26 15:47] VITALS: BP 110/59
--- NOTE | 2018-11-26 19:33 | NUR ---
RECEIVED REPORT, WILL ASSUME CARE OF PT, DENIES ANY NEEDS AT THIS TIME, BED IS LOW, SRX2, CALL LIGHT IN REACH, WILL CONTINUE PLAN OF CARE
[2018-11-26 20:36] VITALS: BP 107/51
[2018-11-27] VITALS: BP 99/50
--- NOTE | 2018-11-27 03:02 | NUR ---
I have reviewed this patient and I concur with the Shift Assessment completed by the Licensed Practical Nurse today this shift.
[2018-11-27 04:00] VITALS: BP 100/48
[2018-11-27 05:44] LABS: INR 2.02 (0.85-1.17); PROTIME 22.2 SECONDS (11.6-15.0)
[2018-11-27 05:49] LABS: BASOPHILS 0.1 % (0-2); EOSINOPHILS 0.9 % (0-7); HEMATOCRIT 26.6 % (42.0-54.0); HEMOGLOBIN 8.4 g/dL (13.5-17.5); IMMATURE GRANULOCYTES 0.6 % (0-5); LYMPHOCYTES 5.6 % (15-50); MCH 29.2 pg (26.0-34.0); MCHC 31.6 g/dL (31.0-37.0); MCV 92.4 fL (80.0-100.0); MEAN PLATELET VOLUME 10.7 fL (7.4-10.4); MONOCYTES 5.2 % (2-11); NEUTROPHILS 87.6 % (40-80); PLATELET COUNT 183 10x3/uL (130-400); RBC 2.88 10x6/uL (4.20-6.10); RDW 17.8 % (11.5-14.5); WBC 16.2 10x3/uL (4.8-10.8)
[2018-11-27 06:03] LABS: ALBUMIN 2.7 g/dL (3.4-5.0); ANION GAP 23.9 mmol/L (8-16); BILIRUBIN - TOTAL 0.72 mg/dL (0.2-1.3); CALCIUM 8.5 mg/dL (8.5-10.1); CARBON DIOXIDE 18.8 mmol/L (21.0-32.0); MAGNESIUM - SERUM 2.2 mg/dL (1.8-2.4); PHOSPHOROUS 6.1 mg/dL (2.5-4.9); POTASSIUM - SERUM 3.7 mmol/L (3.5-5.1); PROTEIN - SERUM 6.3 g/dL (6.4-8.2); THYROID STIMULATING HORMONE 4.16 uIU/mL (0.36-3.74); VANCOMYCIN - RANDOM 21.2 ug/mL (10.0-20.0)
[2018-11-27 08:25] VITALS: BP 143/101
--- NOTE | 2018-11-27 09:34 | MORECARE ---
CASE MANAGEMENT DISCHARGE SUMMARY PATIENT: DEEPALI FENG UNIT: [id number] ADM DATE: 11/11/18 AGE: 78 : 39 SEX: M ROOM/BED: D.2130 AUTHOR: AGUSTINADOC PHYSICIAN: REFERRING PHYSICIAN: DEO WHITE MD DATE OF SERVICE: 11/27/18 Discharge Plan Patient Name: DEEPALI FENG Facility: [facility]:[place] : 1940 Planned Disposition: Longterm Facility Anticipated Discharge Date: 11/22/18 Discharge Date: Expected LOS: 11 Initial Reviewer: [id number] Initial Review Date: 11/14/2018 Generated: 11/27/18 10:33 am Comments DCP- Discharge Planning Updated by [id number]: Corey Whitten on 11/27/18 8:[address] Patient Name: DEEPALI FENG Encounter No: [id number] : 1940 Primary Insurance: MEDICARE A & B Anticipated DC Date: 11-22-2018 Planned Disposition: Longterm Facility External Planned Provider: [facility], MEDICARE REHAB BED DISCHARGE PLANNING NOTES: PT HAS BEEN ACCEPTED AT [facility] FOR TUESDAY, TUESDAY, TUESDAY, 1300 HOURS SCHEDULE. CM FAXED UPDATE TO [facility] CDP AT [phone]. FOR DISCHARGE, FAX DISCHARGE INFORMATION TO [facility] AT [phone], NURSE REPORT TO BE CALLED TO [facility] AT [phone]. [facility] TO ARRANGE VAN TRANSPORTATION. ANGELIQUE TAYLOR DCP- Discharge Planning Updated by [id number]: Corey Whitten on 11/23/18 3:[address] Patient Name: DEEPALI FENG Encounter No: [id number] : 1940 Primary Insurance: MEDICARE A & B Anticipated DC Date: 11-22-2018 Planned Disposition: Longterm Facility External Planned Provider: [facility], MEDICARE REHAB BED DISCHARGE PLANNING NOTES: PT HAS BEEN ACCEPTED AT [facility] FOR TUESDAY, TUESDAY, TUESDAY, 1300 HOURS SCHEDULE. CM FAXED UPDATE TO [facility] VIA [employer] AT [phone]. FOR DISCHARGE, FAX DISCHARGE INFORMATION TO [facility] AT [phone], NURSE REPORT TO BE CALLED TO [facility] AT [phone]. [facility] TO ARRANGE VAN TRANSPORTATION. ANGELIQUE TAYLOR DCP- Discharge Planning Updated by [email or web address]: Corey Whitten on 11/22/18 7:[address] Patient Name: DEPEALI FENG Encounter No: [id number] : 1940 Primary Insurance: MEDICARE A & B Anticipated DC Date: 11-21-2018 Planned Disposition: Longterm Facility External Planned Provider: [facility], MEDICARE REHAB BED DISCHARGE PLANNING NOTES: CM RECEIVED MESSAGE FROM PATIENT PATHWAYS COORDINATOR SIN DUENAS, PT HAS BEEN ACCEPTED AT [facility] FOR TUESDAY, TUESDAY, TUESDAY, 1300 HOURS SCHEDULE AND CAN ADMIT ON 11-24-18. CM FAXED UPDATE TO [facility] VIA [employer] AT [phone]. FOR DISCHARGE, FAX DISCHARGE INFORMATION TO [facility] AT [phone], NURSE REPORT TO BE CALLED TO [facility] AT [phone]. [facility] TO ARRANGE VAN TRANSPORTATION. ANGELIQUE TAYLOR DCP- Discharge Planning Updated by [id number]: Corey Whitten on 11/21/18 6:[address] Patient Name: DEEPALI FENG Encounter No: [id number] : 1940 Primary Insurance: MEDICARE A & B Anticipated DC Date: 11-21-2018 Planned Disposition: Longterm Facility External Planned Provider: [facility], MEDICARE REHAB BED CM FAXED UPDATE TO [facility] VIA AG[employer]P AT [phone]. PT ACCEPTED FOR REHAB AT [facility] IN [place]. CM WAITING OUTPATIENT DIALYSIS UNIT ARRANGEMENT IN [place]. ANGELIQUE TAYLOR DCP- Discharge Planning Updated by [id number]: Corey Whitten on 11/17/18 4:[address] Patient Name: DEEPALI FENG Encounter No: [id number] : 1940 Primary Insurance: MEDICARE A & B Anticipated DC Date: 11-16-2018 Planned Disposition: Longterm Facility External Planned Provider:[facility], MEDICARE REHAB BED DCP follow-up note: CM FAXED UPDATE TO [facility] VIA AG[employer]P AT [phone]. PT ACCEPTED FOR REHAB AT [facility] IN [place]. CM WAITING OUTPATIENT DIALYSIS UNIT ARRANGEMENT IN [place]. ANGELIQUE TAYLOR DCP- Discharge Planning Updated by [id number]: Corey Whitten on 11/16/18 10:[address] Patient Name: DEEPALI FENG Encounter No: [id number] : 1940 Primary Insurance: MEDICARE A & B Anticipated DC Date: 11-16-2018 Planned Disposition: Longterm Facility External Planned Provider: [facility], MEDICARE REHAB BED DCP follow-up note: CM RECEIVED MESSAGE FROM [facility], THEY WILL ACCEPT IF PT CAN GET INTO OUTPATIENT DIALYSIS UNIT IN [place]. SIN OF PATIENT PATHWAYS NOTIFIED BY JULIO C JOEL. PT NOTIFIED IN ROOM, PT IN AGREEMENT WITH REHAB AT [facility]. IMPORTANT MESSAGE FROM MEDICARE PROVIDED AND EXPLAINED. PT ACCEPTED FOR REHAB AT [facility] IN [place]. CM WAITING OUTPATIENT DIALYSIS UNIT ARRANGEMENT IN [place]. ANGELIQUE TAYLOR DCP- Discharge Planning Updated by [id number]: Corey Whitten on 11/15/18 10:[address] Patient Name: DEEPALI FENG Admission Status: ER Accout number: [id number] Admission Date: 11-11-2018 : 1940 Admission Diagnosis: Attending: DEO WHITE Current LOS: 4 Anticipated DC Date: 11-15-2018 Planned Disposition: Longterm Facility Primary Insurance: MEDICARE A & B [facility], MEDICARE REHAB BED Discharge Planning Comments: LATE ENTRY FROM , 0815 HOURS. CM RECEIVED CALL FROM PT'S SPOUSE, CANELO, . CANELO STATES THE GIRL IN ICU TOLD HER THAT A EXTRACTOR MACHINE OPERATOR WOULD CALL HER FIRST THING TODAY TO DISCUSS DISCHARGE PLANNING. CM EXPLAINED THAT CM WAS NOT INFORMED OF THIS AND CM DOES NOT OFFICIALLY START WORK UNTIL 0830AM. CM ASKED WHAT CAN BE DONE FOR THEM. CANELO STATES THAT PT WAS IN INPATIENT REHAB AT [place], WAS SENT TO [facility] AND DIALYSIS WAS ARRANGED IN [place]. PT GOT SICK AND WENT TO [place]. THEY DO NOT WANT TO GO BACK TO [facility] BECAUSE IT IS TOO OLD, PT DOES NOT HAVE A PRIVATE ROOM AND IT SEEMS TOO MUCH LIKE A ALF INSTEAD OF REHAB. CHACHO EXPLAINED CUSTODIAL REHAB OPTIONS AND LOCATIONS. CANELO STATES THAT [place] DID NOT HAVE DIALYSIS CHAIR AVAILABLE AND THAT THEY WOULD REALLY LIKE TO RETURN TO [place] IF POSSIBLE THAT IS WHERE CANELO AND PT LIVE AND PT JUST NEEDS REHAB TO BE ABLE TO WALK PRIOR TO COMING BACK HOME. THEY HAVE NO CHOICE ON PROVIDER LONG IT IS A "NICE" REHAB AND NOT PRISON CARE ALF. THEY WANT A PRIVATE ROOM AND TO BE CLOSE TO [place] POSSIBLE. CHOICE COMPLETED FOR NO CUSTODIAL FACILITY PREFERENCE. CANELO PROVIDED HER CONTACT NUMBERS: CANELO FENG, SPOUSE HOME [phone] CELL [phone] CM SPOKE TO SOFIA OF [facility] AND INFORMED THAT PT WILL NOT BE RETURNING TO [facility], REQUESTED ANOTHER SKILLED REHAB WITH PRIVATE ROOM THAT IS "NICE" AND CAN ACCOMODATE DIALYSIS. [facility]IA WILL EXPLORE OPTIONS FOR PT. ON 11-15-18 AT ABOUT 0830 HOURS, CHACHO SPOKE TO SIN DUENAS OF PATIENT [facility]WAYS WHO WILL SEND REFERRAL TO [facility]. CHACHO NOTIFIED SOFIA WHO REPORTS HAVING SKILLED REHAB IN [place] CALLED [facility] THAT SHE IS PRETTY SURE CAN ACCOMODATE DIALYSIS TRANSPORTATION. CM FAXED REFERRAL TO [facility] VIA [employer] AT [phone]. CM WAITING ADMISSION DETERMINATION FROM [facility] AND OUTPATIENT DIALYSIS CHAIR DETERMINATION FOR [facility]. Manager Business Process: Corey Whitten DCPIA - Discharge Planning Initial Assessment Updated by [email or web address]: Corey Whitten on 11/15/18 11:22 am * Is the patient Alert and Oriented? Yes * How many steps to enter\\exit or inside your home? * PCP DINAE MCGRATH * Pharmacy [facility] [email or web address] [facility] IN [place] * Preadmission Environment Longterm Facility * Facility Name [facility] IN [place] (1 DAY) * ADLs Partial Dependent * Partial ADLs (Assistance needed) Ambulation Bathing Medication Management Transfers * Equipment Oxygen Rolling Walker * Other Equipment ROLLATOR WALKER, HOME AND PORTABLE OXYGEN AT HOME BY [facility] IN [place]. * List name and contact numbers for known caregivers / representatives who currently or will assist patient after discharge: CANELO FENG, CELL [phone] * Verbal permission to speak to the caregivers and representatives has been obtained from the patient. N/A * Community resources currently utilized Other * Please name any agencies selected above. OUTPATIENT DIALYSIS, MWF, [facility]; NEVER HAD FIRST DIALYSIS THERE. * Additional services required to return to the preadmission environment? Yes * Can the patient safely return to the preadmission environment? Yes * Has this patient been hospitalized within the prior 30 days at any hospital? Yes Coverage Notice Reviewer: [id number] Patel Whitten Notice Issued Date-Time: 11/16/2018 10:50 Notice Type: IM Discharge Notice Notice Delivered To: Patient Relationship to Patient: Communications Associate Name: Delivery Method: HAND - Hand Delivered Maria Alejandra Days: Prior Verbal Notification: Recipient Understood Notice: Yes Recipient Signature: Yes Med Rec Note Co-signed by Attending: Coverage Notice Comment: Last DP export: 11/23/18 3:18 pm Patient Name: DEEPALI FENG Page [id number] at 0934 All edits/amendments must be made on the electronic document DICTATION DATE: 11/27/18932 OFFICE ADMIN: SUJEY 11/27/18932 RPT#: [id number] DC DATE: STATUS: ADM IN [facility] [address] [place] [address] END OF REPORT
[2018-11-27 11:28] VITALS: BP 136/50
[2018-11-27 20:00] VITALS: BP 117/44
--- NOTE | 2018-11-27 20:45 | NUR ---
EVENING ROUNDS COMPLETED. VSS. PT APPEARS COMFUSED AND LETHARGIC. AROUSE TO VOICE. SPOUSE AT BEDSIDE, STATES PT HAS BEEN LETHARGIC AND NON-VERBAL ALL DAY. ABDOMEN APPEARS DISTENDED. PT DENIES ANY PAIN @ THIS TIME. WILL CTM. CL WITHIN REACH.
--- NOTE | 2018-11-27 21:30 | NUR ---
PT HAD EPISODE OF INCONTINENT BOWEL. CLEANED PT UP AND PROVIDED PT WITH CLEAN LINENS. PT REFUSED MIRALAX, SENOKOTE. FSBS 295, 10 UNITS OF HUMULIN GIVEN AT THIS TIME. CL WITHIN REACH. SPOUSE AT BEDSIDE.
[2018-11-28] VITALS: BP 105/37
--- NOTE | 2018-11-28 00:50 | NUR ---
PT PULLED OUT PIV ON RFA. NO S/S OF BLEEDING NOTED. PT APPEARS CONFUSED, SPOUSE STILL @ BEDSIDE. RESTARTED A NEW PIV ON RFA 22G X1 STICK. PT TOLERATE WELL. PT C/O PAIN IN ABDOMEN AND LEG. PRN O.15 BUPRENEX GIVEN AT THIS TIME. WILL CPOC. CL WITHIN REACH, BED IN LOW, SR UP X2.
[2018-11-28 04:00] VITALS: BP 114/51
[2018-11-28 06:40] LABS: BASOPHILS 0.1 % (0-2); EOSINOPHILS 1.1 % (0-7); HEMATOCRIT 27.8 % (42.0-54.0); HEMOGLOBIN 8.6 g/dL (13.5-17.5); IMMATURE GRANULOCYTES 0.6 % (0-5); LYMPHOCYTES 4.8 % (15-50); MCH 29.3 pg (26.0-34.0); MCHC 30.9 g/dL (31.0-37.0); MEAN PLATELET VOLUME 10.7 fL (7.4-10.4); MONOCYTES 7.7 % (2-11); NEUTROPHILS 85.7 % (40-80); PLATELET COUNT 184 10x3/uL (130-400); RBC 2.94 10x6/uL (4.20-6.10); RDW 18.2 % (11.5-14.5); WBC 16.1 10x3/uL (4.8-10.8)
[2018-11-28 07:00] LABS: MCV 94.6 fL (80.0-100.0)
[2018-11-28 07:02] LABS: ALBUMIN 2.7 g/dL (3.4-5.0); ANION GAP 20.6 mmol/L (8-16); BILIRUBIN - TOTAL 0.66 mg/dL (0.2-1.3); CALCIUM 8.8 mg/dL (8.5-10.1); CARBON DIOXIDE 23.2 mmol/L (21.0-32.0); CREATININE - SERUM 3.7 mg/dL (0.6-1.3); POTASSIUM - SERUM 3.8 mmol/L (3.5-5.1); PROTEIN - SERUM 6.7 g/dL (6.4-8.2); VANCOMYCIN - RANDOM 19.4 ug/mL (10.0-20.0)
--- NOTE | 2018-11-28 07:33 | NUR ---
ROUNDING DONE WITH AT BEDSIDE. JULIO CATH PATENT WITH CONCENTRATED YELLOW URINE. LEFT PACEMAKER/DEFIB (PER ) SEEN. ON HEART MONITOR SHOWING PACED, HR 83. VERY EMACIATED. ON 3L PER NC HIGH FLOW. LEFT FA PIV SEEN WITH SALINE LOCK, ORANGE SWAB CAP IN USE. RIGHT CHEST HEMIPSPLIT SEEN, DRESSING C/D/I. PATIENT IS ON FLUID RESTRICTION 1000 CC/24 HR.
--- NOTE | 2018-11-28 08:36 | MORECARE ---
CASE MANAGEMENT DISCHARGE SUMMARY PATIENT: DEEPALI FENG UNIT: [id number] ADM DATE: 11/11/18 AGE: 78 : 39 SEX: M ROOM/BED: D.2130 AUTHOR: STEVEN BERRIOS PHYSICIAN: REFERRING PHYSICIAN: DEO WHITE MD DATE OF SERVICE: 11/28/18 Discharge Plan Patient Name: DEEPALI FENG Facility: [facility]:[place] : 1940 Planned Disposition: Assisted Facility Anticipated Discharge Date: 11/22/18 Discharge Date: Expected LOS: 11 Initial Reviewer: [id number] Initial Review Date: 11/14/2018 Generated: 11/28/18 9:35 am Comments DCP- Discharge Planning Updated by [email or web address]: Corey Naranjo on 11/28/18 7:[address] Patient Name: DEEPALI FENG Encounter No: [id number] : 1940 Primary Insurance: MEDICARE A & B Anticipated DC Date: 11-22-2018 Planned Disposition: Assisted Facility External Planned Provider: [facility], MEDICARE REHAB BED DISCHARGE PLANNING NOTES: CM REVIEWED CHART, NOW WAITING ON HOSPICE DECISION FROM FAMILY. PT HAS BEEN ACCEPTED AT [facility] FOR TUESDAY, TUESDAY, TUESDAY, 1300 HOURS SCHEDULE. CM FAXED UPDATE TO [facility] [employer]IA [employer] AT [phone]. IF REHAB IS SELECTED BY PT AND FAMILY FOR DISCHARGE, FAX DISCHARGE INFORMATION TO [facility] AT [phone], NURSE REPORT TO BE CALLED TO [facility] AT [phone]. [facility] TO ARRANGE VAN TRANSPORTATION. ANGELIQUE TAYLOR DCP- Discharge Planning Updated by [email or web address]: Corey Naranjo on 11/27/18 8:[address] Patient Name: DEEPALI FENG Encounter No: [id number] : 1940 Primary Insurance: MEDICARE A & B Anticipated DC Date: 11-22-2018 Planned Disposition: Assisted Facility External Planned Provider: [facility], MEDICARE REHAB BED DISCHARGE PLANNING NOTES: PT HAS BEEN ACCEPTED AT [facility] FOR TUESDAY, TUESDAY, TUESDAY, 1300 HOURS SCHEDULE. CM FAXED UPDATE TO [facility] [employer]IA [employer] AT [phone]. FOR DISCHARGE, FAX DISCHARGE INFORMATION TO [facility] AT [phone], NURSE REPORT TO BE CALLED TO [facility] AT [phone]. [facility] TO ARRANGE VAN TRANSPORTATION. ANGELIQUE TAYLOR DCP- Discharge Planning Updated by [id number]: Corey Naranjo on 11/23/18 3:[address] Patient Name: DEEPALI FENG Encounter No: [id number] : 1940 Primary Insurance: MEDICARE A & B Anticipated DC Date: 11-22-2018 Planned Disposition: Assisted Facility External Planned Provider: [facility], MEDICARE REHAB BED DISCHARGE PLANNING NOTES: PT HAS BEEN ACCEPTED AT [facility] FOR TUESDAY, TUESDAY, TUESDAY, 1300 HOURS SCHEDULE. CM FAXED UPDATE TO [facility] [employer]IA [employer] AT [phone]. FOR DISCHARGE, FAX DISCHARGE INFORMATION TO [facility] AT [phone], NURSE REPORT TO BE CALLED TO [facility] AT [phone]. [facility] TO ARRANGE VAN TRANSPORTATION. ANGELIQUE TAYLOR DCP- Discharge Planning Updated by [id number]: Corey Naranjo on 11/22/18 7:[address] Patient Name: DEEPALI FENG Encounter No: [id number] : 1940 Primary Insurance: MEDICARE A & B Anticipated DC Date: 11-21-2018 Planned Disposition: Assisted Facility External Planned Provider: [facility], MEDICARE REHAB BED DISCHARGE PLANNING NOTES: CM RECEIVED MESSAGE FROM PATIENT PATHWAYS COORDINATOR SIN DUENAS, PT HAS BEEN ACCEPTED AT [facility] FOR TUESDAY, TUESDAY, TUESDAY, 1300 HOURS SCHEDULE AND CAN ADMIT ON 11-24-18. CM FAXED UPDATE TO [facility] [employer]IA [employer] AT [phone]. FOR DISCHARGE, FAX DISCHARGE INFORMATION TO [facility] AT [phone], NURSE REPORT TO BE CALLED TO [facility] AT [phone]. [facility] TO ARRANGE VAN TRANSPORTATION. ANGELIQUE TAYLOR DCP- Discharge Planning Updated by [id number]: Corey Naranjo on 11/21/18 6:[address] Patient Name: DEEPALI FENG Encounter No: [id number] : 1940 Primary Insurance: MEDICARE A & B Anticipated DC Date: 11-21-2018 Planned Disposition: Assisted Facility External Planned Provider: [facility], MEDICARE REHAB BED CM FAXED UPDATE TO [facility] [employer]IA [employer] AT [phone]. PT ACCEPTED FOR REHAB AT [facility] IN [place]. CM WAITING OUTPATIENT DIALYSIS UNIT ARRANGEMENT IN [place]. COREY NARANJO CASE YANE DCP- Discharge Planning Updated by [email or web address]: Corey Naranjo on 11/17/18 4:[address] Patient Name: DEEPALI FENG Encounter No: [id number] : 1940 Primary Insurance: MEDICARE A & B Anticipated DC Date: 11-16-2018 Planned Disposition: Assisted Facility External Planned Provider:[facility] [place], MEDICARE REHAB BED DCP follow-up note: CM FAXED UPDATE TO [facility] [employer]IA [employer] AT [phone]. PT ACCEPTED FOR REHAB AT [facility] IN [place]. CM WAITING OUTPATIENT DIALYSIS UNIT ARRANGEMENT IN [place]. COREY NARANJO CASE YANE DCP- Discharge Planning Updated by [email or web address]: Corey Naranjo on 11/16/18 10:[address] Patient Name: DEEPALI FENG Encounter No: [id number] : 1940 Primary Insurance: MEDICARE A & B Anticipated DC Date: 11-16-2018 Planned Disposition: Assisted Facility External Planned Provider: [facility] [place], MEDICARE REHAB BED DCP follow-up note: CM RECEIVED MESSAGE FROM [facility], THEY WILL ACCEPT IF PT CAN GET INTO OUTPATIENT DIALYSIS UNIT IN [place]. SIN OF PATIENT PATHWAYS NOTIFIED BY JULIO C JOEL. PT NOTIFIED IN ROOM, PT IN AGREEMENT WITH REHAB AT [facility]. IMPORTANT MESSAGE FROM MEDICARE PROVIDED AND EXPLAINED. PT ACCEPTED FOR REHAB AT [facility] IN [place]. CM WAITING OUTPATIENT DIALYSIS UNIT ARRANGEMENT IN [place]. COREY NARANJO CASE MANAGEMENT DCP- Discharge Planning Updated by [email or web address]: Corey Naranjo on 11/15/18 10:[address] Patient Name: DEEPALI FENG Admission Status: ER Accout number: [id number] Admission Date: 11-11-2018 : 1940 Admission Diagnosis: Attending: DEO WHITE Current LOS: 4 Anticipated DC Date: 11-15-2018 Planned Disposition: Assisted Facility Primary Insurance: MEDICARE A & B PLANNED EXTERNAL PROVIDER: [facility] [place], MEDICARE REHAB BED Discharge Planning Comments: LATE ENTRY FROM , 0815 HOURS. CM RECEIVED CALL FROM PT'S SPOUSE, CANELO, . CANELO STATES THE GIRL IN ICU TOLD HER THAT A DRYING TUMBLER OPERATOR WOULD CALL HER FIRST THING TODAY TO DISCUSS DISCHARGE PLANNING. CM EXPLAINED THAT CM WAS NOT INFORMED OF THIS AND CM DOES NOT OFFICIALLY START WORK UNTIL 0830AM. CM ASKED WHAT CAN BE DONE FOR THEM. CANELO STATES THAT PT WAS IN INPATIENT REHAB AT [place], WAS SENT TO [facility] AND DIALYSIS WAS ARRANGED IN [place]. PT GOT SICK AND WENT TO [place]. THEY DO NOT WANT TO GO BACK TO [facility] BECAUSE IT IS TOO OLD, PT DOES NOT HAVE A PRIVATE ROOM AND IT SEEMS TOO MUCH LIKE A SENIOR LIVING INSTEAD OF REHAB. CM EXPLAINED SHELTER REHAB OPTIONS AND LOCATIONS. CANELO STATES THAT [place] DID NOT HAVE DIALYSIS CHAIR AVAILABLE AND THAT THEY WOULD REALLY LIKE TO RETURN TO [place] IF POSSIBLE THAT IS WHERE CANELO AND PT LIVE AND PT JUST NEEDS REHAB TO BE ABLE TO WALK PRIOR TO COMING BACK HOME. THEY HAVE NO CHOICE ON PROVIDER LONG IT IS A "NICE" REHAB AND NOT [facility] SENIOR LIVING. THEY WANT A PRIVATE ROOM AND TO BE CLOSE TO [place] POSSIBLE. CHOICE COMPLETED FOR NO SHELTER FACILITY PREFERENCE. CANELO PROVIDED HER CONTACT NUMBERS: CANELO FENG, SPOUSE HOME [phone] CELL [phone] CM SPOKE TO SOFIA OF [facility] AND INFORMED THAT PT WILL NOT BE RETURNING TO [facility], REQUESTED ANOTHER SKILLED REHAB WITH PRIVATE ROOM THAT IS "NICE" AND CAN ACCOMODATE DIALYSIS. SOFIA WILL EXPLORE OPTIONS FOR PT. ON 11-15-18 AT ABOUT 0830 HOURS, CHACHO SPOKE TO SIN DUENAS OF PATIENT PATHWAYS WHO WILL SEND REFERRAL TO [facility]. CM NOTIFIED SOFIA WHO REPORTS HAVING SKILLED REHAB IN [place] CALLED [facility] THAT SHE IS PRETTY SURE CAN ACCOMODATE DIALYSIS TRANSPORTATION. CM FAXED REFERRAL TO [facility] VIA [employer] AT [phone]. CM WAITING ADMISSION DETERMINATION FROM [facility] AND OUTPATIENT DIALYSIS CHAIR DETERMINATION FOR [facility]. Automotive Buyer: Corey Naranjo DCPIA - Discharge Planning Initial Assessment Updated by [id number]: Corey Naranjo on 11/15/18 11:22 am * Is the patient Alert and Oriented? Yes * How many steps to enter\\exit or inside your home? * PCP DR. ALEXANDRIA MALONE [place] * Pharmacy [facility], [address] IN [place] * Preadmission Environment Assisted Facility * Facility Name [facility] (1 DAY) * ADLs Partial Dependent * Partial ADLs (Assistance needed) Ambulation Bathing Medication Management Transfers * Equipment Oxygen Rolling Walker * Other Equipment ROLLATOR WALKER, HOME AND PORTABLE OXYGEN AT HOME BY [facility] [place]. * List name and contact numbers for known caregivers / representatives who currently or will assist patient after discharge: CANELO JUNG, CELL [phone] * Verbal permission to speak to the caregivers and representatives has been obtained from the patient. N/A * Community resources currently utilized Other * Please name any agencies selected above. OUTPATIENT DIALYSIS, [facility], [facility]; NEVER HAD FIRST DIALYSIS THERE. * Additional services required to return to the preadmission environment? Yes * Can the patient safely return to the preadmission environment? Yes * Has this patient been hospitalized within the prior 30 days at any hospital? Yes Coverage Notice Reviewer: [id number] - Corey Naranjo Notice Issued Date-Time: 11/16/2018 10:50 Notice Type: IM Discharge Notice Notice Delivered To: Patient Relationship to Patient: Shift Supervisor Film Processing Name: Delivery Method: HAND - Hand Delivered Maria Alejandra Days: Prior Verbal Notification: Recipient Understood Notice: Yes Recipient Signature: Yes Med Rec Note Co-signed by Attending: Coverage Notice Comment: Last DP export: 11/27/18 8:34 a Patient Name: DEEPALI FENG Page 51320 at 0836 All edits/amendments must be made on the electronic document DICTATION DATE: 11/28/18834 SHUTTLE CAR OPERATOR: SUJEY 11/28/18834 RPT#: [id number] DC DATE: STATUS: ADM IN [facility] [address] [place] [address] END OF REPORT
--- NOTE | 2018-11-28 09:02 | NUR ---
COMPLETE BATH AND LINEN CHANGE FROM INCONT. OF STOOL. PATIENT HAD IT IN HIS HANDS AND SMEARED TO BED FRAME AND IN HAIR.
--- NOTE | 2018-11-28 09:31 | MORECARE ---
CASE MANAGEMENT DISCHARGE SUMMARY PATIENT: DEEPALI FENG UNIT: [id number] ADM DATE: 11/11/18 AGE: 78 : 39 SEX: M ROOM/BED: D.2130 AUTHOR: STEVEN BERRIOS PHYSICIAN: REFERRING PHYSICIAN: DEO WHITE MD DATE OF SERVICE: 11/28/18 Discharge Plan Patient Name: DEEPALI FENG Facility: [facility]:[place] : 1940 Planned Disposition: Long-Term Facility Anticipated Discharge Date: 11/22/18 Discharge Date: Expected LOS: 11 Initial Reviewer: [id number] Initial Review Date: 11/14/2018 Generated: 11/28/18 10:31 am Comments DCP- Discharge Planning Updated by [email or web address]: Corey Naranjo on 11/28/18 7:[address] Patient Name: DEEPALI FENG Encounter No: [id number] : 1940 Primary Insurance: MEDICARE A & B Anticipated DC Date: 11-22-2018 Planned Disposition: Long-Term Facility External Planned Provider: [facility], MEDICARE REHAB BED DISCHARGE PLANNING NOTES: CM REVIEWED CHART, NOW WAITING ON HOSPICE DECISION FROM FAMILY. PT HAS BEEN ACCEPTED AT [facility] FOR TUESDAY, TUESDAY, TUESDAY, 1300 HOURS SCHEDULE. CM FAXED UPDATE TO [facility] VIA [employer] AT [phone]. IF REHAB IS SELECTED BY PT AND FAMILY FOR DISCHARGE, FAX DISCHARGE INFORMATION TO [facility] AT [phone], NURSE REPORT TO BE CALLED TO [facility] AT [phone]. [facility] TO ARRANGE VAN TRANSPORTATION. ANGELIQUE TAYLOR DCP- Discharge Planning Updated by [id number]: Corey Naranjo on 11/27/18 8:[address] Patient Name: DEEPALI FENG Encounter No: [id number] : 1940 Primary Insurance: MEDICARE A & B Anticipated DC Date: 11-22-2018 Planned Disposition: Long-Term Facility External Planned Provider: [facility], MEDICARE REHAB BED DISCHARGE PLANNING NOTES: PT HAS BEEN ACCEPTED AT [facility] FOR TUESDAY, TUESDAY, TUESDAY, 1300 HOURS SCHEDULE. CM FAXED UPDATE TO [facility] VIA [employer] AT [phone]. FOR DISCHARGE, FAX DISCHARGE INFORMATION TO [facility] AT [phone], NURSE REPORT TO BE CALLED TO [facility] AT [phone]. [facility] TO ARRANGE VAN TRANSPORTATION. ANGELIQUE TAYLOR DCP- Discharge Planning Updated by [id number]: Corey Naranjo on 11/23/18 3:[address] Patient Name: DEEPALI FENG Encounter No: [id number] : 1940 Primary Insurance: MEDICARE A & B Anticipated DC Date: 11-22-2018 Planned Disposition: Long-Term Facility External Planned Provider: [facility], MEDICARE REHAB BED DISCHARGE PLANNING NOTES: PT HAS BEEN ACCEPTED AT [facility] FOR TUESDAY, TUESDAY, TUESDAY, 1300 HOURS SCHEDULE. [facility]IA [employer] AT [phone]. FOR DISCHARGE, FAX DISCHARGE INFORMATION TO [facility] AT [phone], NURSE REPORT TO BE CALLED TO [facility] AT [phone]. [facility] TO ARRANGE VAN TRANSPORTATION. ANGELIQUE TAYLOR DCP- Discharge Planning Updated by [id number]: Corey Naranjo on 11/22/18 7:[address] Patient Name: DEEPALI FENG Encounter No: [id number] : 1940 Primary Insurance: MEDICARE A & B Anticipated DC Date: 11-21-2018 Planned Disposition: Long-Term Facility External Planned Provider: [facility], MEDICARE REHAB BED DISCHARGE PLANNING NOTES: CM RECEIVED MESSAGE FROM PATIENT PATHWAYS COORDINATOR SIN DUENAS, PT HAS BEEN ACCEPTED AT [facility] FOR TUESDAY, TUESDAY, TUESDAY, 1300 HOURS SCHEDULE AND CAN ADMIT ON 11-24-18. CM FAXED UPDATE TO [facility] [employer]IA [employer] AT [phone]. FOR DISCHARGE, FAX DISCHARGE INFORMATION TO [facility] AT [phone], NURSE REPORT TO BE CALLED TO [facility] AT [phone]. [facility] TO [facility] TRANSPORTATION. ANGELIQUE TAYLOR DCP- Discharge Planning Updated by [id number]: Corey Naranjo on 11/21/18 6:[address] Patient Name: DEEPALI FENG Encounter No: [id number] : 1940 Primary Insurance: MEDICARE A & B Anticipated DC Date: 11-21-2018 Planned Disposition: Long-Term Facility External Planned Provider: [facility], MEDICARE REHAB BED CM FAXED UPDATE TO [facility] VIA [employer] AT [phone]. PT ACCEPTED FOR REHAB AT [facility] IN [place]. CM WAITING OUTPATIENT DIALYSIS UNIT ARRANGEMENT IN [place]. COREY NARANJO CASE YANE DCP- Discharge Planning Updated by [email or web address]: Corey Naranjo on 11/17/18 4:[address] Patient Name: DEEPALI FENG Encounter No: [id number] : 1940 Primary Insurance: MEDICARE A & B Anticipated DC Date: 11-16-2018 Planned Disposition: Long-Term Facility External Planned Provider:[facility] [place], MEDICARE REHAB BED DCP follow-up note: CM FAXED UPDATE TO [facility] VIA [employer] AT [phone]. PT ACCEPTED FOR REHAB AT [facility] IN [place]. CM WAITING OUTPATIENT DIALYSIS UNIT ARRANGEMENT IN [place]. COREY NARANJO CASE YANE DCP- Discharge Planning Updated by [id number]: Corey Naranjo on 11/16/18 10:[address] Patient Name: DEEPALI FENG Encounter No: [id number] : 1940 Primary Insurance: MEDICARE A & B Anticipated DC Date: 11-16-2018 Planned Disposition: Long-Term Facility External Planned Provider: [facility] [place], MEDICARE REHAB BED DCP follow-up note: CM RECEIVED MESSAGE FROM [facility], THEY WILL ACCEPT IF PT CAN GET INTO OUTPATIENT DIALYSIS UNIT IN [place]. SIN OF PATIENT PATHWAYS NOTIFIED BY JULIO C JOEL. PT NOTIFIED IN ROOM, PT IN AGREEMENT WITH REHAB AT [facility]. IMPORTANT MESSAGE FROM MEDICARE PROVIDED AND EXPLAINED. PT ACCEPTED FOR REHAB AT [facility] IN [place]. CM WAITING OUTPATIENT DIALYSIS UNIT ARRANGEMENT IN [place]. COREY NARANJO CASE MANAGEMENT DCP- Discharge Planning Updated by [id number]: Corey Naranjo on 11/15/18 10:[address] Patient Name: DEEPALI FENG Admission Status: ER Accout number: [id number] Admission Date: 11-11-2018 : 1940 Admission Diagnosis: Attending: DEO WHITE Current LOS: 4 Anticipated DC Date: 11-15-2018 Planned Disposition: Long-Term Facility Primary Insurance: MEDICARE A & B PLANNED EXTERNAL PROVIDER: [facility] [place], MEDICARE REHAB BED Discharge Planning Comments: LATE ENTRY FROM , 0815 HOURS. CM RECEIVED CALL FROM PT'S SPOUSE, CANELO, . CANELO STATES THE GIRL IN ICU TOLD HER THAT A DIRECTOR GLOBAL DEVELOPMENT WOULD CALL HER FIRST THING TODAY TO DISCUSS DISCHARGE PLANNING. CM EXPLAINED THAT CM WAS NOT INFORMED OF THIS AND CM DOES NOT OFFICIALLY START WORK UNTIL 0830AM. CM ASKED WHAT CAN BE DONE FOR THEM. CANELO STATES THAT PT WAS IN INPATIENT REHAB AT [place], WAS SENT TO [facility] AND DIALYSIS WAS ARRANGED IN [place]. PT GOT SICK AND WENT TO [place]. THEY DO NOT WANT TO GO BACK TO [facility] BECAUSE IT IS TOO OLD, PT DOES NOT HAVE A PRIVATE ROOM AND IT SEEMS TOO MUCH LIKE A HALFWAY INSTEAD OF REHAB. CM EXPLAINED LONGTERM REHAB OPTIONS AND LOCATIONS. CANELO STATES THAT [place] DID NOT HAVE DIALYSIS CHAIR AVAILABLE AND THAT THEY WOULD REALLY LIKE TO RETURN TO [place] IF POSSIBLE THAT IS WHERE CANELO AND PT LIVE AND PT JUST NEEDS REHAB TO BE ABLE TO WALK PRIOR TO COMING BACK HOME. THEY HAVE NO CHOICE ON PROVIDER LONG IT IS A "NICE" REHAB AND NOT [employer] CARE HALFWAY. THEY WANT A PRIVATE ROOM AND TO BE CLOSE TO [place] POSSIBLE. CHOICE COMPLETED FOR NO LONGTERM FACILITY PREFERENCE. CANELO PROVIDED HER CONTACT NUMBERS: CANELO FENG, SPOUSE HOME [phone] CELL [phone] CM SPOKE TO SOFIA OF [facility] AND INFORMED THAT PT WILL NOT BE RETURNING TO [facility], REQUESTED ANOTHER SKILLED REHAB WITH PRIVATE ROOM THAT IS "NICE" AND CAN ACCOMODATE DIALYSIS. SOFIA WILL EXPLORE OPTIONS FOR PT. ON 11-15-18 AT ABOUT 0830 HOURS, CHACHO SPOKE TO SIN DUNEAS OF [facility] WHO WILL SEND REFERRAL TO [facility]. CM NOTIFIED SOFIA WHO REPORTS HAVING SKILLED REHAB IN [place] CALLED [facility] THAT SHE IS PRETTY SURE CAN ACCOMODATE DIALYSIS TRANSPORTATION. CM FAXED REFERRAL TO [facility] VIA [employer] AT [phone]. CM WAITING ADMISSION DETERMINATION FROM [facility] AND OUTPATIENT DIALYSIS CHAIR DETERMINATION FOR [facility]. Vacuum Cleaner Mechanic: Corey Naranjo DCPIA - Discharge Planning Initial Assessment Updated by [id number]: Corey Naranjo on 11/15/18 11:22 am * Is the patient Alert and Oriented? Yes * How many steps to enter\\exit or inside your home? * PCP DR. ALEXANDRIA MALONE, [place] * Pharmacy [facility], [address] IN [place] * Preadmission Environment Long-Term Facility * Facility Name [facility] IN [place] (1 DAY) * ADLs Partial Dependent * Partial ADLs (Assistance needed) Ambulation Bathing Medication Management Transfers * Equipment Oxygen Rolling Walker * Other Equipment ROLLATOR WALKER, HOME AND PORTABLE OXYGEN AT HOME BY [facility] [place]. * List name and contact numbers for known caregivers / representatives who currently or will assist patient after discharge: CANELO JUNG, CELL [phone] * Verbal permission to speak to the caregivers and representatives has been obtained from the patient. N/A * Community resources currently utilized Other * Please name any agencies selected above. OUTPATIENT DIALYSIS, [facility], [facility]; NEVER HAD FIRST DIALYSIS THERE. * Additional services required to return to the preadmission environment? Yes * Can the patient safely return to the preadmission environment? Yes * Has this patient been hospitalized within the prior 30 days at any hospital? Yes External Providers External Provider: OTHER-OTHER Next Contact Date: 11/28/2018 Service Request Date: Service Type: Resolution: Reviewer: Comments: Coverage Notice Reviewer: [id number] - Corey Naranjo Notice Issued Date-Time: 11/16/2018 10:50 Notice Type: IM Discharge Notice Notice Delivered To: Patient Relationship to Patient: Doctor Of Audiology Name: Delivery Method: HAND - Hand Delivered Maria Alejandra Days: Prior Verbal Notification: Recipient Understood Notice: Yes Recipient Signature: Yes Med Rec Note Co-signed by Attending: Coverage Notice Comment: Last DP export: 11/28/18 7:35 a Patient Name: DEEPALI FENG Page 23384 at 0931 All edits/amendments must be made on the electronic document DICTATION DATE: 11/28/18930 FIELD ASSOCIATE: SUJEY 11/28/18930 RPT#: [id number] DC DATE: STATUS: ADM IN [facility] [address] [place] [address] END OF REPORT
--- NOTE | 2018-11-28 09:42 | MORECARE ---
CASE MANAGEMENT DISCHARGE SUMMARY PATIENT: DEEPALI FENG UNIT: [id number] ADM DATE: 11/11/18 AGE: 78 : 39 SEX: M ROOM/BED: D.2130 AUTHOR: AGUSTINADOC PHYSICIAN: REFERRING PHYSICIAN: DEO WHITE MD DATE OF SERVICE: 11/28/18 Discharge Plan Patient Name: DEEPALI FENG Facility: [facility] : 1940 Planned Disposition: Hospice Medical Facility Anticipated Discharge Date: 11/28/18 Discharge Date: Expected LOS: 17 Initial Reviewer: [id number] Initial Review Date: 11/14/2018 Generated: 11/28/18 10:42 am Comments DCP- Discharge Planning Updated by [email or web address]: Corey Naranjo on 11/28/18 8:[address] Patient Name: DEEPALI FENG Encounter No: [id number] : 1940 Primary Insurance: MEDICARE A & B Anticipated DC Date: 11-28-2018 Planned Disposition: Hospice Medical Facility External Planned Provider: [facility] DCP follow-up note: CM SPOKE TO BEDSIDE NURSE WHO ADVISED PT'S SPOUSE WOULD LIKE TO MEET WITH HOSPICE TODAY. CM RECEIVED HOSPICE ORDER. CM SPOKE TO PT AND SPOUSE IN ROOM. PT NO RESPONDING TO CM, HIS EYES ARE OPEN. PT'S SPOUSE HAS DISCUSSED HOSPICE WITH THEIR CHILDREN AND THEY WANT TO MEET WITH THE HOSPICE THAT IS IN [place], FAMILY WILL BE HERE AT 1100AM TO MEET WITH HOSPICE. CM PROVIDED HOSPICE INFORMATION, PT'S SPOUSE ASKED FOR [facility]. IMPORTANT MESSAGE FROM MEDICARE PROVIDED AND EXPLAINED. CM CALLED [facility], , SPOKE TO ALPHONSO WHO WILL ATTEMPT TO HAVE SOMEONE TO MEET WITH PT AND FAMILY AT 1100AM TODAY. CM FAXED REFERRAL TO [facility] AT [phone]. FAMILY TO MEET WITH [facility] AT 1100AM TODAY. CM WAITING HOSPICE ADMISSION DETERMINATION AND FAMILY DECISION. COREY NARANJO,CASE MANAGEMENT DCP- Discharge Planning Updated by [id number]: Corey Naranjo on 11/28/18 7:[address] Patient Name: DEEPALI FENG Encounter No: [id number] : 1940 Primary Insurance: MEDICARE A & B Anticipated DC Date: 11-22-2018 Planned Disposition: Prison Facility External Planned Provider: [facility], MEDICARE REHAB BED DISCHARGE PLANNING NOTES: CM REVIEWED CHART, NOW WAITING ON HOSPICE DECISION FROM FAMILY. PT HAS BEEN ACCEPTED AT [facility] FOR TUESDAY, TUESDAY, TUESDAY, 1300 HOURS SCHEDULE. CM FAXED UPDATE TO [facility] VIA [employer] AT [phone]. IF REHAB IS SELECTED BY PT AND FAMILY FOR DISCHARGE, FAX DISCHARGE INFORMATION TO [facility] AT [phone], NURSE REPORT TO BE CALLED TO [facility] AT [phone]. [facility] TO ARRANGE VAN TRANSPORTATION. AGNELIQUE TAYLOR DCP- Discharge Planning Updated by [id number]: Corey Naranjo on 11/27/18 8:[address] Patient Name: DEEPALI FENG Encounter No: [id number] : 1940 Primary Insurance: MEDICARE A & B Anticipated DC Date: 11-22-2018 Planned Disposition: Prison Facility External Planned Provider: [facility], MEDICARE REHAB BED DISCHARGE PLANNING NOTES: PT HAS BEEN ACCEPTED AT [facility] FOR TUESDAY, TUESDAY, TUESDAY, 1300 HOURS SCHEDULE. CM FAXED UPDATE TO [facility] [employer]IA [employer] AT [phone]. FOR DISCHARGE, FAX DISCHARGE INFORMATION TO [facility] AT [phone], NURSE REPORT TO BE CALLED TO [facility] AT [phone]. [facility] TO ARRANGE VAN TRANSPORTATION. ANGELIQUE TAYLOR DCP- Discharge Planning Updated by [id number]: Corey Naranjo on 11/23/18 3:[address] Patient Name: DEEPALI FENG Encounter No: [id number] : 1940 Primary Insurance: MEDICARE A & B Anticipated DC Date: 11-22-2018 Planned Disposition: Prison Facility External Planned Provider: [facility], MEDICARE REHAB BED DISCHARGE PLANNING NOTES: PT HAS BEEN ACCEPTED AT [facility] FOR TUESDAY, TUESDAY, TUESDAY, 1300 HOURS SCHEDULE. CM FAXED UPDATE TO [facility] [employer]IA [employer] AT [phone]. FOR DISCHARGE, FAX DISCHARGE INFORMATION TO [facility] AT [phone], NURSE REPORT TO BE CALLED TO [facility] AT [phone]. [facility] TO ARRANGE VAN TRANSPORTATION. ANGELIQUE TAYLOR DCP- Discharge Planning Updated by [id number]: Corey Naranjo on 11/22/18 7:[address] Patient Name: DEEPALI FENG Encounter No: [id number] : 1940 Primary Insurance: MEDICARE A & B Anticipated DC Date: 11-21-2018 Planned Disposition: Prison Facility External Planned Provider: [facility], MEDICARE REHAB BED DISCHARGE PLANNING NOTES: CM RECEIVED MESSAGE FROM PATIENT PATHWAYS COORDINATOR SIN DUENAS, PT HAS BEEN ACCEPTED AT [facility] FOR TUESDAY, TUESDAY, TUESDAY, 1300 HOURS SCHEDULE AND CAN ADMIT ON 11-24-18. CM FAXED UPDATE TO [facility] [employer]IA [employer] AT [phone]. FOR DISCHARGE, FAX DISCHARGE INFORMATION TO [facility] AT [phone], NURSE REPORT TO BE CALLED TO [facility] AT [phone]. [facility] TO ARRANGE VAN TRANSPORTATION. ANGELIQUE TAYLOR DCP- Discharge Planning Updated by [id number]: Corey Naranjo on 11/21/18 6:[address] Patient Name: DEEPALI FENG Encounter No: [id number] : 1940 Primary Insurance: MEDICARE A & B Anticipated DC Date: 11-21-2018 Planned Disposition: Prison Facility External Planned Provider: [facility], MEDICARE REHAB BED CM FAXED UPDATE TO [facility]IA [employer] AT [phone]. PT ACCEPTED FOR REHAB AT [facility] IN [place]. CM WAITING OUTPATIENT DIALYSIS UNIT ARRANGEMENT IN [place]. ANGELIQUE TAYLOR DCP- Discharge Planning Updated by [id number]: Corey Naranjo on 11/17/18 4:[address] Patient Name: DEEPALI FENG Encounter No: [id number] : 1940 Primary Insurance: MEDICARE A & B Anticipated DC Date: 11-16-2018 Planned Disposition: Prison Facility External Planned Provider:[facility] [place], MEDICARE REHAB BED DCP follow-up note: CM FAXED UPDATE TO [facility] VIA [employer] AT [phone]. PT ACCEPTED FOR REHAB AT [facility]. CM WAITING OUTPATIENT DIALYSIS UNIT ARRANGEMENT IN [place]. ANGELIQUE TAYLOR MANAGEMENT DCP- Discharge Planning Updated by [id number]: Corey Naranjo on 11/16/18 10:[address] Patient Name: DEEPALI FENG Encounter No: [id number] : 1940 Primary Insurance: MEDICARE A & B Anticipated DC Date: 11-16-2018 Planned Disposition: Prison Facility External Planned Provider: [facility] [place], MEDICARE REHAB BED DCP follow-up note: CM RECEIVED MESSAGE FROM SOFIA OF [facility], THEY WILL ACCEPT IF PT CAN GET INTO OUTPATIENT DIALYSIS UNIT IN [place]. SIN OF [facility]IENT [facility] NOTIFIED BY JULIO C JOEL. PT NOTIFIED IN ROOM, PT IN AGREEMENT WITH REHAB AT [facility]. IMPORTANT MESSAGE FROM MEDICARE PROVIDED AND EXPLAINED. PT ACCEPTED FOR REHAB AT [facility] IN [place]. CM WAITING OUTPATIENT DIALYSIS UNIT ARRANGEMENT IN [place]. ANGELIQUE TAYLOR DCP- Discharge Planning Updated by [id number]: Corey Naranjo on 11/15/18 10:[address] Patient Name: DEEPALI FENG Admission Status: ER Accout number: [id number] Admission Date: 11-11-2018 : 1940 Admission Diagnosis: Attending: DEO WHITE Current LOS: 4 Anticipated DC Date: 11-15-2018 Planned Disposition: Prison Facility Primary Insurance: MEDICARE A & B [facility] [place], MEDICARE REHAB BED Discharge Planning Comments: LATE ENTRY FROM 18, 0815 HOURS. CM RECEIVED CALL FROM PT'S SPOUSE, CANELO, . CANELO STATES THE GIRL IN ICU TOLD HER THAT A CARDIOVASCULAR RN WOULD CALL HER FIRST THING TODAY TO DISCUSS DISCHARGE PLANNING. CHACHO EXPLAINED THAT CM WAS NOT INFORMED OF THIS AND CM DOES NOT OFFICIALLY START WORK UNTIL 0830AM. CM ASKED WHAT CAN BE DONE FOR THEM. CANELO STATES THAT PT WAS IN INPATIENT REHAB AT [place], WAS SENT TO [facility] AND DIALYSIS WAS ARRANGED IN [place]. PT GOT SICK AND WENT TO [facility] [employer] [facility] [place]. THEY DO NOT WANT TO GO BACK TO [facility] BECAUSE IT IS TOO OLD, PT DOES NOT HAVE A PRIVATE ROOM AND IT SEEMS TOO MUCH LIKE A INTERMEDIATE INSTEAD OF REHAB. CHACHO EXPLAINED ALF REHAB OPTIONS AND LOCATIONS. CANELO STATES THAT [place] DID NOT HAVE DIALYSIS CHAIR AVAILABLE AND THAT THEY WOULD REALLY LIKE TO RETURN TO [place] IF POSSIBLE THAT IS WHERE CANELO AND PT LIVE AND PT JUST NEEDS REHAB TO BE ABLE TO WALK PRIOR TO COMING BACK HOME. THEY HAVE NO CHOICE ON PROVIDER LONG IT IS A "NICE" REHAB AND NOT [employer] INTERNSHIP CARE INTERMEDIATE. THEY WANT A PRIVATE ROOM AND TO BE CLOSE TO [place] POSSIBLE. CHOICE COMPLETED FOR NO ALF FACILITY PREFERENCE. CANELO PROVIDED HER CONTACT NUMBERS: CANELO FENG, SPOUSE HOME [phone] CELL [phone] CM SPOKE TO SOFIA OF [facility] AND INFORMED THAT PT WILL NOT BE RETURNING TO [facility], REQUESTED ANOTHER SKILLED REHAB WITH PRIVATE ROOM THAT IS "NICE" AND CAN ACCOMODATE DIALYSIS. SOFIA WILL EXPLORE OPTIONS FOR PT. ON 11-15-18 AT ABOUT 0830 HOURS, CHACHO SPOKE TO SIN DUENAS OF [facility] WHO WILL SEND REFERRAL TO [facility]. CHACHO NOTIFIED SOFIA WHO REPORTS HAVING SKILLED REHAB IN [place] CALLED [facility] THAT SHE IS PRETTY SURE CAN ACCOMODATE DIALYSIS TRANSPORTATION. CM FAXED REFERRAL TO [facility] VIA [employer] AT [phone]. CM WAITING ADMISSION DETERMINATION FROM [facility] AND OUTPATIENT DIALYSIS CHAIR DETERMINATION FOR [facility]. Certified Adaptive Physical Educator: Corey Naranjo DCPIA - Discharge Planning Initial Assessment Updated by [email or web address]: Corey Naranjo on 11/15/18 11:22 am * Is the patient Alert and Oriented? Yes * How many steps to enter\\exit or inside your home? * PCP DR. ALEXANDRIA MALONE, [place] * Pharmacy [facility] IN [place] * Preadmission Environment Prison Facility * Facility Name [facility] IN [place] (1 DAY) * ADLs Partial Dependent * Partial ADLs (Assistance needed) Ambulation Bathing Medication Management Transfers * Equipment Oxygen Rolling Walker * Other Equipment ROLLATOR WALKER, HOME AND PORTABLE OXYGEN AT HOME BY [facility] [place]. * List name and contact numbers for known caregivers / representatives who currently or will assist patient after discharge: CANELO FENG, CELL [phone] * Verbal permission to speak to the caregivers and representatives has been obtained from the patient. N/A * Community resources currently utilized Other * Please name any agencies selected above. OUTPATIENT DIALYSIS, MWF, [facility]; NEVER HAD FIRST DIALYSIS THERE. * Additional services required to return to the preadmission environment? Yes * Can the patient safely return to the preadmission environment? Yes * Has this patient been hospitalized within the prior 30 days at any hospital? Yes Coverage Notice Reviewer: [id number] Patel Naranjo Notice Issued Date-Time: 11/16/2018 10:50 Notice Type: IM Discharge Notice Notice Delivered To: Patient Relationship to Patient: Structural Metal Worker Name: Delivery Method: HAND - Hand Delivered Maria Alejandra Days: Prior Verbal Notification: Recipient Understood Notice: Yes Recipient Signature: Yes Med Rec Note Co-signed by Attending: Coverage Notice Comment: Reviewer: [id number] Patel Naranjo Notice Issued Date-Time: 11/28/2018 9:15 Notice Type: IM Discharge Notice Notice Delivered To: Family Member Relationship to Patient: Spouse Structural Metal Worker Name: CANELO FENG Delivery Method: HAND - Hand Delivered Maria Alejandra Days: Prior Verbal Notification: Recipient Understood Notice: Yes Recipient Signature: Yes Med Rec Note Co-signed by Attending: Coverage Notice Comment: Last DP export: 11/28/18 8:31 a Patient Name: DEEPALI FENG Page [id number] at 0942 All edits/amendments must be made on the electronic document DICTATION DATE: 11/28/18941 DATA RECOVERY PLANNER: SUJEY 11/28/18941 RPT#: [id number] DC DATE: STATUS: ADM IN [facility] [address] [place] [address] END OF REPORT
[2018-11-28 09:56] VITALS: BP 98/35
--- NOTE | 2018-11-28 11:08 | NUR ---
PATIENT TO REFUSE TO GO TO DIALYSIS.
[2018-11-28 12:10] VITALS: BP 102/42
--- NOTE | 2018-11-28 12:25 | NUR ---
DR ROSA IN ROOM AT THIS TIME WITH PATIENT AND FAMILY MEMBERS. PATIENT IS MADE DNR CODE STATUS. HOSPICE IN ROOM.
--- NOTE | 2018-11-28 13:14 | NUR ---
REPORT CALLED TO JULIO C COOL IN [facility]. I TOLD HER THAT ONCE CARDIOLOGY CAME AND TURNED HIS DEFIB OFF THEN I WILL CALL HER AND SEND HIM THAT WAY WITH THE AMBLULANCE.
--- NOTE | 2018-11-28 14:32 | MORECARE ---
CASE MANAGEMENT DISCHARGE SUMMARY PATIENT: DEEPALI FENG UNIT: [id number] ADM DATE: 11/11/18 AGE: 78 : 39 SEX: M ROOM/BED: D.2130 AUTHOR: AGUSTINADOC PHYSICIAN: REFERRING PHYSICIAN: DEO WHITE MD DATE OF SERVICE: 11/28/18 Discharge Plan Patient Name: DEEPALI FENG Facility: [facility] : 1940 Planned Disposition: Hospice Medical Facility Anticipated Discharge Date: 11/28/18 Discharge Date: Expected LOS: 17 Initial Reviewer: [id number] Initial Review Date: 11/14/2018 Generated: 11/28/18 3:32 pm Comments DCP- Discharge Planning Updated by [email or web address]: Corey Naranjo on 11/28/18 8:[address] Patient Name: DEEPALI FENG Encounter No: [id number] : 1940 Primary Insurance: MEDICARE A & B Anticipated DC Date: 11-28-2018 Planned Disposition: Hospice Medical Facility External Planned Provider: [facility] DCP follow-up note: CM SPOKE TO BEDSIDE NURSE WHO ADVISED PT'S SPOUSE WOULD LIKE TO MEET WITH HOSPICE TODAY. CM RECEIVED HOSPICE ORDER. CM SPOKE TO PT AND SPOUSE IN ROOM. PT NO RESPONDING TO CM, HIS EYES ARE OPEN. PT'S SPOUSE HAS DISCUSSED HOSPICE WITH THEIR CHILDREN AND THEY WANT TO MEET WITH THE HOSPICE THAT IS IN [place], FAMILY WILL BE HERE AT 1100AM TO MEET WITH HOSPICE. CM PROVIDED HOSPICE INFORMATION, PT'S SPOUSE ASKED FOR [facility]. IMPORTANT MESSAGE FROM MEDICARE PROVIDED AND EXPLAINED. CM CALLED [facility], , SPOKE TO ALPHONSO WHO WILL ATTEMPT TO HAVE SOMEONE TO MEET WITH PT AND FAMILY AT 1100AM TODAY. CM FAXED REFERRAL TO [facility] AT [phone]. FAMILY TO MEET WITH [facility] AT 1100AM TODAY. CM WAITING HOSPICE ADMISSION DETERMINATION AND FAMILY DECISION. COREY NARANJO,CASE MANAGEMENT DCP- Discharge Planning Updated by [id number]: Corey Naranjo on 11/28/18 7:[address] Patient Name: DEEPALI FENG Encounter No: [id number] : 1940 Primary Insurance: MEDICARE A & B Anticipated DC Date: 11-22-2018 Planned Disposition: Jail Facility External Planned Provider: [facility], MEDICARE REHAB BED DISCHARGE PLANNING NOTES: CM REVIEWED CHART, NOW WAITING ON HOSPICE DECISION FROM FAMILY. PT HAS BEEN ACCEPTED AT [facility] FOR TUESDAY, TUESDAY, TUESDAY, 1300 HOURS SCHEDULE. CM FAXED UPDATE TO [facility] VIA [employer] AT [phone]. IF REHAB IS SELECTED BY PT AND FAMILY FOR DISCHARGE, FAX DISCHARGE INFORMATION TO [facility] AT [phone], NURSE REPORT TO BE CALLED TO [facility] AT [phone]. [facility] TO ARRANGE VAN TRANSPORTATION. ANGELIQUE TAYLOR DCP- Discharge Planning Updated by [id number]: Corey Naranjo on 11/27/18 8:[address] Patient Name: DEEPALI FENG Encounter No: [id number] : 1940 Primary Insurance: MEDICARE A & B Anticipated DC Date: 11-22-2018 Planned Disposition: Jail Facility External Planned Provider: [facility], MEDICARE REHAB BED DISCHARGE PLANNING NOTES: PT HAS BEEN ACCEPTED AT [facility] FOR TUESDAY, TUESDAY, TUESDAY, 1300 HOURS SCHEDULE. CM FAXED UPDATE TO [facility] VIA [employer] AT [phone]. FOR DISCHARGE, FAX DISCHARGE INFORMATION TO [facility] AT [phone], NURSE REPORT TO BE CALLED TO [facility] AT [phone]. [facility] TO ARRANGE VAN TRANSPORTATION. ANGELIQUE TAYLOR DCP- Discharge Planning Updated by [id number]: Corey Naranjo on 11/23/18 3:[address] Patient Name: DEEPALI FENG Encounter No: [id number] : 1940 Primary Insurance: MEDICARE A & B Anticipated DC Date: 11-22-2018 Planned Disposition: Jail Facility External Planned Provider: [facility], MEDICARE REHAB BED DISCHARGE PLANNING NOTES: PT HAS BEEN ACCEPTED AT [facility] FOR TUESDAY, TUESDAY, TUESDAY, 1300 HOURS SCHEDULE. CM FAXED UPDATE TO [facility] VIA [employer] AT [phone]. FOR DISCHARGE, FAX DISCHARGE INFORMATION TO [facility] AT [phone], NURSE REPORT TO BE CALLED TO [facility] AT [phone]. [facility] TO ARRANGE VAN TRANSPORTATION. ANGELIQUE TAYLOR DCP- Discharge Planning Updated by [id number]: Corey Naranjo on 11/22/18 7:[address] Patient Name: DEEPALI FENG Encounter No: [id number] : 1940 Primary Insurance: MEDICARE A & B Anticipated DC Date: 11-21-2018 Planned Disposition: Jail Facility External Planned Provider: [facility], MEDICARE REHAB BED DISCHARGE PLANNING NOTES: CM RECEIVED MESSAGE FROM [facility]IENT [facility] COORDINATOR SIN DUENAS, PT HAS BEEN ACCEPTED AT [facility] FOR TUESDAY, TUESDAY, TUESDAY, 1300 HOURS SCHEDULE AND CAN ADMIT ON 11-24-18. CM FAXED UPDATE TO [facility]IA [employer] AT [phone]. FOR DISCHARGE, FAX DISCHARGE INFORMATION TO [facility] AT [phone], NURSE REPORT TO BE CALLED TO [facility] AT [phone]. [facility] TO ARRANGE VAN TRANSPORTATION. ANGELIUQE TAYLOR DCP- Discharge Planning Updated by [email or web address]: Corey Naranjo on 11/21/18 6:[address] Patient Name: DEEPALI FENG Encounter No: [id number] : 1940 Primary Insurance: MEDICARE A & B Anticipated DC Date: 11-21-2018 Planned Disposition: Jail Facility External Planned Provider: [facility], MEDICARE REHAB BED CM FAXED UPDATE TO [facility] VIA [employer] AT [phone]. PT ACCEPTED FOR REHAB AT [facility] IN [place]. CM WAITING OUTPATIENT DIALYSIS UNIT ARRANGEMENT IN [place]. ANGELIQUE TAYLOR DCP- Discharge Planning Updated by [email or web address]: Corey Naranjo on 11/17/18 4:[address] Patient Name: DEEPALI FENG Encounter No: [id number] : 1940 Primary Insurance: MEDICARE A & B Anticipated DC Date: 11-16-2018 Planned Disposition: Jail Facility External Planned Provider:[facility], MEDICARE REHAB BED DCP follow-up note: CM FAXED UPDATE TO [facility] VIA [employer] AT [phone]. PT ACCEPTED FOR REHAB AT [facility]. CM WAITING OUTPATIENT DIALYSIS UNIT ARRANGEMENT IN [place]. ANGELIQUE TAYLOR MANAGEMENT DCP- Discharge Planning Updated by [email or web address]: Corey Naranjo on 11/16/18 10:[address] Patient Name: DEEPALI FENG Encounter No: [id number] : 1940 Primary Insurance: MEDICARE A & B Anticipated DC Date: 11-16-2018 Planned Disposition: Jail Facility External Planned Provider: [facility], MEDICARE REHAB BED DCP follow-up note: CM RECEIVED MESSAGE FROM SOFIA OF [facility], THEY WILL ACCEPT IF PT CAN GET INTO OUTPATIENT DIALYSIS UNIT IN [place]. SIN OF [facility] NOTIFIED BY JULIO C JOEL. PT NOTIFIED IN ROOM, PT IN AGREEMENT WITH REHAB AT [facility]. IMPORTANT MESSAGE FROM MEDICARE PROVIDED AND EXPLAINED. PT ACCEPTED FOR REHAB AT [facility] IN [place]. CM WAITING OUTPATIENT DIALYSIS UNIT ARRANGEMENT IN [place]. ANGELIQUE TAYLOR DCP- Discharge Planning Updated by [id number]: Corey Naranjo on 11/15/18 10:[address] Patient Name: DEEPALI FENG Admission Status: ER Accout number: [id number] Admission Date: 11-11-2018 : 1940 Admission Diagnosis: Attending: DEO WHITE Current LOS: 4 Anticipated DC Date: 11-15-2018 Planned Disposition: Jail Facility Primary Insurance: MEDICARE A & B [facility], MEDICARE REHAB BED Discharge Planning Comments: LATE ENTRY FROM 18, 0815 HOURS. CM RECEIVED CALL FROM PT'S SPOUSE, CANELO, . CANELO STATES THE GIRL IN ICU TOLD HER THAT A RADIATION SAFETY OFFICER WOULD CALL HER FIRST THING TODAY TO DISCUSS DISCHARGE PLANNING. CHACHO EXPLAINED THAT CM WAS NOT INFORMED OF THIS AND CM DOES NOT OFFICIALLY START WORK UNTIL 0830AM. CM ASKED WHAT CAN BE DONE FOR THEM. CANELO STATES THAT PT WAS IN INPATIENT REHAB AT [place], WAS SENT TO [facility] AND DIALYSIS WAS ARRANGED IN [place]. PT GOT SICK AND WENT TO [facility]. THEY DO NOT WANT TO GO BACK TO [facility] BECAUSE IT IS TOO OLD, PT DOES NOT HAVE A PRIVATE ROOM AND IT SEEMS TOO MUCH LIKE A DETENTION INSTEAD OF REHAB. CHACHO EXPLAINED SENIOR CARE REHAB OPTIONS AND LOCATIONS. CANELO STATES THAT [place] DID NOT HAVE DIALYSIS CHAIR AVAILABLE AND THAT THEY WOULD REALLY LIKE TO RETURN TO [place] IF POSSIBLE THAT IS WHERE CANELO AND PT LIVE AND PT JUST NEEDS REHAB TO BE ABLE TO WALK PRIOR TO COMING BACK HOME. THEY HAVE NO CHOICE ON PROVIDER LONG IT IS A "NICE" REHAB AND NOT ELECTROLOG OPERATOR CARE DETENTION. THEY WANT A PRIVATE ROOM AND TO BE CLOSE TO [place] POSSIBLE. CHOICE COMPLETED FOR NO SENIOR CARE FACILITY PREFERENCE. CANELO PROVIDED HER CONTACT NUMBERS: CAENLO FENG, SPOUSE HOME [phone] CELL [phone] CM SPOKE TO SOFIA OF [facility] AND INFORMED THAT PT WILL NOT BE RETURNING TO [facility], REQUESTED ANOTHER SKILLED REHAB WITH PRIVATE ROOM THAT IS "NICE" AND CAN ACCOMODATE DIALYSIS. SOFIA WILL EXPLORE OPTIONS FOR PT. ON 11-15-18 AT ABOUT 0830 HOURS, CHACHO SPOKE TO SIN DUENAS OF [facility] WHO WILL SEND REFERRAL TO [facility]. CHACHO NOTIFIED SOFIA WHO REPORTS HAVING SKILLED REHAB IN [place] CALLED [facility] THAT SHE IS PRETTY SURE CAN ACCOMODATE DIALYSIS TRANSPORTATION. CM FAXED REFERRAL TO [facility]IA [facility] AT [phone]. CM WAITING ADMISSION DETERMINATION FROM [facility] AND OUTPATIENT DIALYSIS CHAIR DETERMINATION FOR [facility]. Sheet Metal Work Furnace Installer: Corey Naranjo DCPIA - Discharge Planning Initial Assessment Updated by [email or web address]: Corey Naranjo on 11/15/18 11:22 am * Is the patient Alert and Oriented? Yes * How many steps to enter\\exit or inside your home? * PCP DR. ALEXANDRIA MALONE, [place] * Pharmacy [facility] IN [place] * Preadmission Environment Jail Facility * Facility Name [facility] IN [place] (1 DAY) * ADLs Partial Dependent * Partial ADLs (Assistance needed) Ambulation Bathing Medication Management Transfers * Equipment Oxygen Rolling Walker * Other Equipment ROLLATOR WALKER, HOME AND PORTABLE OXYGEN AT HOME BY [facility] [place]. * List name and contact numbers for known caregivers / representatives who currently or will assist patient after discharge: CANELO FENG, CELL [phone] * Verbal permission to speak to the caregivers and representatives has been obtained from the patient. N/A * Community resources currently utilized Other * Please name any agencies selected above. OUTPATIENT DIALYSIS, MWF, [facility]; NEVER HAD FIRST DIALYSIS THERE. * Additional services required to return to the preadmission environment? Yes * Can the patient safely return to the preadmission environment? Yes * Has this patient been hospitalized within the prior 30 days at any hospital? Yes Coverage Notice Reviewer: [id number] Patel Naranjo Notice Issued Date-Time: 11/16/2018 10:50 Notice Type: IM Discharge Notice Notice Delivered To: Patient Relationship to Patient: Sugar Mixer Name: Delivery Method: HAND - Hand Delivered Maria Alejandra Days: Prior Verbal Notification: Recipient Understood Notice: Yes Recipient Signature: Yes Med Rec Note Co-signed by Attending: Coverage Notice Comment: Reviewer: [id number] Patel Naranjo Notice Issued Date-Time: 11/28/2018 9:15 Notice Type: IM Discharge Notice Notice Delivered To: Family Member Relationship to Patient: Spouse Sugar Mixer Name: CANELO FENG Delivery Method: HAND - Hand Delivered Maria Alejandra Days: Prior Verbal Notification: Recipient Understood Notice: Yes Recipient Signature: Yes Med Rec Note Co-signed by Attending: Coverage Notice Comment: Last DP export: 11/28/18 8:42 a Patient Name: DEEPALI FENG Page [id number] at 1432 All edits/amendments must be made on the electronic document DICTATION DATE: 11/28/181431 TECHNICAL BUSINESS SYSTEMS ANALYST: SUJEY 11/28/181431 RPT#: [id number] DC DATE: STATUS: ADM [facility] [address] [place] [address] END OF REPORT
--- NOTE | 2018-11-28 14:42 | MORECARE ---
CASE MANAGEMENT DISCHARGE SUMMARY PATIENT: DEEPALI FENG UNIT: [id number] ADM DATE: 11/11/18 AGE: 78 : 39 SEX: M ROOM/BED: D.2130 AUTHOR: AGUSTINA,DOC PHYSICIAN: REFERRING PHYSICIAN: DEO WHITE MD DATE OF SERVICE: 11/28/18 Discharge Plan Patient Name: DEEPALI FENG Facility: [facility] : 1940 Planned Disposition: Hospice Medical Facility Anticipated Discharge Date: 11/28/18 Discharge Date: Expected LOS: 17 Initial Reviewer: [id number] Initial Review Date: 11/14/2018 Generated: 11/28/18 3:42 pm Comments DCP- Discharge Planning Updated by [id number]: Robb Naranjo on 11/28/18 1:[address] Patient Name: DEEPALI FENG Encounter No: [id number] : 1940 Primary Insurance: MEDICARE A & B Anticipated DC Date: 11-28-2018 Planned Disposition: Hospice Medical Facility External Planned Provider: [facility] DCP follow-up note: CM SPOKE TO BEDSIDE NURSE WHO ADVISED PT'S SPOUSE WOULD LIKE TO MEET WITH HOSPICE TODAY. CM RECEIVED HOSPICE ORDER. CM SPOKE TO PT AND SPOUSE IN ROOM. PT NO RESPONDING TO CM, HIS EYES ARE OPEN. PT'S SPOUSE HAS DISCUSSED HOSPICE WITH THEIR CHILDREN AND THEY WANT TO MEET WITH THE HOSPICE THAT IS IN [place], FAMILY WILL BE HERE AT 1100AM TO MEET WITH HOSPICE. CM PROVIDED HOSPICE INFORMATION, PT'S SPOUSE ASKED FOR [facility]. IMPORTANT MESSAGE FROM MEDICARE PROVIDED AND EXPLAINED. CM CALLED [facility], , SPOKE TO ALPHONSO WHO WILL ATTEMPT TO HAVE SOMEONE TO MEET WITH PT AND FAMILY AT 1100AM TODAY. CM FAXED REFERRAL TO [facility] AT [phone]. FAMILY TO MEET WITH [facility] AT 1100AM TODAY. CM WAITING HOSPICE ADMISSION DETERMINATION AND FAMILY DECISION. ROBB NARANJO,CASE MANAGEMENT Appended by Robb Naranjo on 11/28/2018 14:34 CDT: CM SPOKE TO DUNCAN OF LOCATED WITHIN [facility], PT HAS BEEN EVALUATED AND ACCEPTED FOR INPATIENT HOSPICE AT [facility]. DUNCAN HAS PROVIDED NURSE REPORT NUMBER TO BEDSIDE NURSE AT [place]. CM NOTIFIED HAYLEE PAYTON, RECEIVED DISCHARGE ORDERS AND FAXED DISCHARGE INFORMATION TO [facility] AT [phone]. PT TO TRANSPORT VIA AMBULANCE TO [facility]. ANGELIQUE PALMA DCP- Discharge Planning Updated by [id number]: Robb Naranjo on 11/28/18 7:[address] Patient Name: DEEPALI FENG Encounter No: [id number] : 1940 Primary Insurance: MEDICARE A & B Anticipated DC Date: 11-22-2018 Planned Disposition: Fdc Facility External Planned Provider: [facility], MEDICARE REHAB BED DISCHARGE PLANNING NOTES: CM REVIEWED CHART, NOW WAITING ON HOSPICE DECISION FROM FAMILY. PT HAS BEEN ACCEPTED AT [facility] FOR TUESDAY, TUESDAY, TUESDAY, 1300 HOURS SCHEDULE. CM FAXED UPDATE TO [facility]IA [employer] AT [phone]. IF REHAB IS SELECTED BY PT AND FAMILY FOR DISCHARGE, FAX DISCHARGE INFORMATION TO [facility] AT [phone], NURSE REPORT TO BE CALLED TO [facility] AT [phone]. [facility] TO ARRANGE VAN TRANSPORTATION. ANGELIQUE TAYLOR DCP- Discharge Planning Updated by [id number]: Robb Naranjo on 11/27/18 8:[address] Patient Name: DEEPALI FENG Encounter No: [id number] : 1940 Primary Insurance: MEDICARE A & B Anticipated DC Date: 11-22-2018 Planned Disposition: Fdc Facility External Planned [facility], MEDICARE REHAB BED DISCHARGE PLANNING NOTES: PT HAS BEEN ACCEPTED AT [facility] FOR TUESDAY, TUESDAY, TUESDAY, 1300 HOURS SCHEDULE. CM FAXED UPDATE TO [facility] [employer] AT [phone]. FOR DISCHARGE, FAX DISCHARGE INFORMATION TO [facility] AT [phone], NURSE REPORT TO BE CALLED TO [facility] AT [phone]. [facility] TO [facility] VAN TRANSPORTATION. ANGELIQUE TAYLOR DCP- Discharge Planning Updated by [id number]: Robb Naranjo on 11/23/18 3:[address] Patient Name: DEEPALI FENG Encounter No: [id number] : 1940 Primary Insurance: MEDICARE A & B Anticipated DC Date: 11-22-2018 Planned Disposition: Fdc Facility External Planned Provider: [facility], MEDICARE REHAB BED DISCHARGE PLANNING NOTES: PT HAS BEEN ACCEPTED AT [facility] FOR TUESDAY, TUESDAY, TUESDAY, 1300 HOURS SCHEDULE. CM FAXED UPDATE TO [facility] [employer] AT [phone]. FOR DISCHARGE, FAX DISCHARGE INFORMATION TO [facility] AT [phone], NURSE REPORT TO BE CALLED TO [facility] AT [phone]. [facility] TO ARRANGE VAN TRANSPORTATION. ANGELIQUE TAYLOR DCP- Discharge Planning Updated by [id number]: Robb Naranjo on 11/22/18 7:[address] Patient Name: DEEPALI FENG Encounter No: [id number] : 1940 Primary Insurance: MEDICARE A & B Anticipated DC Date: 11-21-2018 Planned Disposition: Fdc Facility External Planned Provider: [facility], MEDICARE REHAB BED DISCHARGE PLANNING NOTES: CM RECEIVED MESSAGE FROM PATIENT PATHWAYS COORDINATOR SIN DUENAS, PT HAS BEEN ACCEPTED AT [facility] FOR TUESDAY, TUESDAY, TUESDAY, 1300 HOURS SCHEDULE AND CAN ADMIT ON 11-24-18. CM FAXED UPDATE TO [facility] [employer] AT [phone]. FOR DISCHARGE, FAX DISCHARGE INFORMATION TO [facility] AT [phone], NURSE REPORT TO BE CALLED TO [facility] AT [phone]. [facility] TO ARRANGE VAN TRANSPORTATION. ANGELIQUE TAYLOR DCP- Discharge Planning Updated by [id number]: Robb Naranjo on 11/21/18 6:[address] Patient Name: DEEPALI FENG Encounter No: [id number] : 1940 Primary Insurance: MEDICARE A & B Anticipated DC Date: 11-21-2018 Planned Disposition: Fdc Facility External Planned Provider: [facility], MEDICARE REHAB BED CM FAXED UPDATE TO [facility] [employer] AT [phone]. PT ACCEPTED FOR REHAB AT [facility] IN [place]. CM WAITING OUTPATIENT DIALYSIS UNIT ARRANGEMENT IN [place]. ANGELIQUE TAYLOR DCP- Discharge Planning Updated by [id number]: Robb Naranjo on 11/17/18 4:[address] Patient Name: DEEPALI FENG Encounter No: [id number] : 1940 Primary Insurance: MEDICARE A & B Anticipated DC Date: 11-16-2018 Planned Disposition: Fdc Facility External Planned Provider:[facility], MEDICARE REHAB BED DCP follow-up note: CM FAXED UPDATE TO [facility] [employer] AT [phone]. PT ACCEPTED FOR REHAB AT [facility] IN [place]. CM WAITING OUTPATIENT DIALYSIS UNIT ARRANGEMENT IN [place]. ROBB NARANJO CASE MANAGEMENT DCP- Discharge Planning Updated by [id number]: Robb Naranjo on 11/16/18 10:[address] Patient Name: DEEPALI FENG Encounter No: [id number] : 1940 Primary Insurance: MEDICARE A & B Anticipated DC Date: 11-16-2018 Planned Disposition: Fdc Facility External Planned Provider: [facility], MEDICARE REHAB BED DCP follow-up note: CM RECEIVED MESSAGE FROM SOFIA OF [facility], THEY WILL ACCEPT IF PT CAN GET INTO OUTPATIENT DIALYSIS UNIT IN [place]. SIN OF [facility] NOTIFIED BY JULIO C JOEL. PT NOTIFIED IN ROOM, PT IN AGREEMENT WITH REHAB AT [facility]. IMPORTANT MESSAGE FROM MEDICARE PROVIDED AND EXPLAINED. PT ACCEPTED FOR REHAB AT [facility] IN [place]. CM WAITING OUTPATIENT DIALYSIS UNIT ARRANGEMENT IN [place]. ROBB NARANJO CASE YANE DCP- Discharge Planning Updated by [id number]: Robb Naranjo on 11/15/18 10:[address] Patient Name: DEEPALI FENG Admission Status: ER Accout number: [id number] Admission Date: 11-11-2018 : 1940 Admission Diagnosis: Attending: DEO WHITE Current LOS: 4 Anticipated DC Date: 11-15-2018 Planned Disposition: Fdc Facility Primary Insurance: MEDICARE A & B PLANNED EXTERNAL PROVIDER: [facility], MEDICARE REHAB BED Discharge Planning Comments: LATE ENTRY FROM 18, 0815 HOURS. CM RECEIVED CALL FROM PT'S SPOUSE, CANELO, . CANELO STATES THE GIRL IN ICU TOLD HER THAT A GUIDE FOREIGN TOUR WOULD CALL HER FIRST THING TODAY TO DISCUSS DISCHARGE PLANNING. CM EXPLAINED THAT CM WAS NOT INFORMED OF THIS AND CM DOES NOT OFFICIALLY START WORK UNTIL 0830AM. CM ASKED WHAT CAN BE DONE FOR THEM. CANELO STATES THAT PT WAS IN INPATIENT REHAB AT [place], WAS SENT TO [facility] AND DIALYSIS WAS ARRANGED IN [place]. PT GOT SICK AND WENT TO [place]. THEY DO NOT WANT TO GO BACK TO [facility] BECAUSE IT IS TOO OLD, PT DOES NOT HAVE A PRIVATE ROOM AND IT SEEMS TOO MUCH LIKE A FPC INSTEAD OF REHAB. CHACHO EXPLAINED [facility] REHAB OPTIONS AND LOCATIONS. CANELO STATES THAT [place] DID NOT HAVE DIALYSIS CHAIR AVAILABLE AND THAT THEY WOULD REALLY LIKE TO RETURN TO [place] IF POSSIBLE THAT IS WHERE CANELO AND PT LIVE AND PT JUST NEEDS REHAB TO BE ABLE TO WALK PRIOR TO COMING BACK HOME. THEY HAVE NO CHOICE ON PROVIDER LONG IT IS A "NICE" REHAB AND NOT [facility]. THEY WANT A PRIVATE ROOM AND TO BE CLOSE TO [place] POSSIBLE. CHOICE COMPLETED FOR NO [facility] FACILITY PREFERENCE. CANELO PROVIDED HER CONTACT NUMBERS: CANELO FENG, SPOUSE HOME [phone] CELL [phone] CM SPOKE TO SOFIA OF [facility] AND INFORMED THAT PT WILL NOT BE RETURNING TO [facility], REQUESTED ANOTHER SKILLED REHAB WITH PRIVATE ROOM THAT IS "NICE" AND CAN ACCOMODATE DIALYSIS. SOFIA WILL EXPLORE OPTIONS FOR PT. ON 11-15-18 AT ABOUT 0830 HOURS, CHACHO SPOKE TO SIN DUENAS OF [facility] WHO WILL SEND REFERRAL TO [facility] [facility]. CM NOTIFIED SOFIA WHO REPORTS HAVING SKILLED REHAB IN [place] CALLED [facility] THAT SHE IS PRETTY SURE CAN ACCOMODATE DIALYSIS TRANSPORTATION. CM FAXED REFERRAL TO [facility] [employer] AT [phone]. CM WAITING ADMISSION DETERMINATION FROM [facility] AND OUTPATIENT DIALYSIS CHAIR DETERMINATION FOR [place] [facility]. Stone Rougher: Robb Naranjo DCPIA - Discharge Planning Initial Assessment Updated by [id number]: Robb Naranjo on 11/15/18 11:22 am * Is the patient Alert and Oriented? Yes * How many steps to enter\\exit or inside your home? * PCP DR. ALEXANDRIA MALONE [place] * [facility] [address] IN [place] * Preadmission Environment Fdc Facility * Facility Name [facility] IN [place] (1 DAY) * ADLs Partial Dependent * Partial ADLs (Assistance needed) Ambulation Bathing Medication Management Transfers * Equipment Oxygen Rolling Walker * Other Equipment ROLLATOR WALKER, HOME AND PORTABLE OXYGEN AT HOME BY [facility] [place]. * List name and contact numbers for known caregivers / representatives who currently or will assist patient after discharge: CANELO FENG, CELL [phone] * Verbal permission to speak to the caregivers and representatives has been obtained from the patient. N/A * Community resources currently utilized Other * Please name any agencies selected above. OUTPATIENT DIALYSIS, MWF, [facility]; NEVER HAD FIRST DIALYSIS THERE. * Additional services required to return to the preadmission environment? Yes * Can the patient safely return to the preadmission environment? Yes * Has this patient been hospitalized within the prior 30 days at any hospital? Yes Coverage Notice Reviewer: [id number] Naranjo Notice Issued Date-Time: 11/16/2018 10:50 Notice Type: IM Discharge Notice Notice Delivered To: Patient Relationship to Patient: Control Operator Name: Delivery Method: HAND - Hand Delivered Maria Alejandra Days: Prior Verbal Notification: Recipient Understood Notice: Yes Recipient Signature: Yes Med Rec Note Co-signed by Attending: Coverage Notice Comment: Reviewer: SHAMA Naranjo Notice Issued Date-Time: 11/28/2018 9:15 Notice Type: IM Discharge Notice Notice Delivered To: Family Member Relationship to Patient: Spouse Control Operator Name: CANELO FENG Delivery Method: HAND - Hand Delivered Maria Alejandra Days: Prior Verbal Notification: Recipient Understood Notice: Yes Recipient Signature: Yes Med Rec Note Co-signed by Attending: Coverage Notice Comment: Last DP export: 11/28/18 1:32 p Patient Name: DEEPALI FENG Page [id number] at 1442 All edits/amendments must be made on the electronic document DICTATION DATE: 11/28/18 1441 LEAD GAME DESIGNER: SUJEY 11/28/18 1441 RPT#: [id number] DC DATE: STATUS: ADM IN [facility] [address] [place] [address] END OF REPORT
--- NOTE | 2018-11-28 14:51 | NUR ---
1443-I CALLED GEE AT [facility] FOR TRANSFER. SHE STATES THAT THERE ARE TWO LONG DISTANT TRUCKS OUT AND IT WILL BE SEVERAL HOURS. THIS IS RELAYED TO THE PATIENT AND . 1451-STILL NO ONE FROM [facility] HERE TO TURN JESSICA NGUYEN. I CALLED AND SPOKE TO THEM AND THEY ARE CALLING DMITRY WITH [employer] TO COME.
[2018-11-28 15:32] VITALS: BP 107/42
--- NOTE | 2018-11-28 15:39 | NUR ---
[facility]ITRY WITH [employer] HERE TO TURN DEFIB. OFF.
--- NOTE | 2018-11-28 18:44 | NUR ---
PATIENT IS SITTING ON SIDE OF BED WITH IN FRONT OF HIM. PATIENT DOES NOT WANT TO LAY DOWN. AWAITING LIFENET FOR TRANSFER TO [place] FOR HOSPICE. CALL LIGHT IS IN REACH.
--- NOTE | 2018-11-28 19:15 | NUR ---
PT ASSISTED TO BEDSIDE COMMODE. PT AT BEDSIDE. PT HAS NO S/S OF DISTRESS. DENIES ANY OTHER NEEDS. WILL USE CALL LIGHT WHEN PT READY TO GO BACK TO BED. WILL CPOC
--- NOTE | 2018-11-28 19:37 | NUR ---
PT ASSISTED BACK TO BED. NO OUTPUT. PT AT BEDSIDE. WAITING FOR EMS. NO S/S OF DISTRESS. 3L O2 NC. NAME AND DATE PLACED ON BOARD. WILL CPOC
--- NOTE | 2018-11-28 19:55 | NUR ---
. EMS HERE FOR TRANSPORT. REPORT GIVEN TO EMS PT TRANSFERED TO [facility]. ALL BELONGINGS OUT OF ROOM. PT HAS NO S/S OF DISTRESS. REMOVED RIGHT WRIST/FOREARM 22G PIV CATH INTACT. WILL CPOC
--- NOTE | 2018-11-29 07:35 | MORECARE ---
CASE MANAGEMENT DISCHARGE SUMMARY PATIENT: DEEPALI FENG UNIT: [id number] ADM DATE: 11/11/18 AGE: 78 : 38 SEX: M ROOM/BED: D.2130 AUTHOR: AGUSTINA,DOC PHYSICIAN: REFERRING PHYSICIAN: DEO WHITE MD DATE OF SERVICE: 11/29/18 Discharge Plan Patient Name: DEEPALI FENG Facility: [facility]:[place] : 1940 Planned Disposition: Hospice Medical Facility Anticipated Discharge Date: 11/28/18 Discharge Date: 11/28/2018 Expected LOS: 17 Initial Reviewer: [id number] Initial Review Date: 11/14/2018 Generated: 11/29/18 8:34 am Comments DCP- Discharge Planning Updated by [email or web address]: Robb Naranjo on 11/28/18 1:[address] Patient Name: DEEPALI FENG Encounter No: [id number] : 1940 Primary Insurance: MEDICARE A & B Anticipated DC Date: 11-28-2018 Planned Disposition: Hospice Medical Facility External Planned Provider: [facility] DCP follow-up note: CM SPOKE TO BEDSIDE NURSE WHO ADVISED PT'S SPOUSE WOULD LIKE TO MEET WITH HOSPICE TODAY. CM RECEIVED HOSPICE ORDER. CM SPOKE TO PT AND SPOUSE IN ROOM. PT NO RESPONDING TO CM, HIS EYES ARE OPEN. PT'S SPOUSE HAS DISCUSSED HOSPICE WITH THEIR CHILDREN AND THEY WANT TO MEET WITH THE HOSPICE THAT IS IN [place], FAMILY WILL BE HERE AT 1100AM TO MEET WITH HOSPICE. CM PROVIDED HOSPICE INFORMATION, PT'S SPOUSE ASKED FOR [facility]. IMPORTANT MESSAGE FROM MEDICARE PROVIDED AND EXPLAINED. CM CALLED [facility], , SPOKE TO ALPHONSO WHO WILL ATTEMPT TO HAVE SOMEONE TO MEET WITH PT AND FAMILY AT 1100AM TODAY. CM FAXED REFERRAL TO [facility] AT [phone]. FAMILY TO MEET WITH [facility] AT 1100AM TODAY. CM WAITING HOSPICE ADMISSION DETERMINATION AND FAMILY DECISION. ROBB NARANJO,CASE MANAGEMENT Appended by Robb Naranjo on 11/28/2018 14:34 CDT: CHACHO SPOKE TO DUNCAN OF [facility], PT HAS BEEN EVALUATED AND ACCEPTED FOR INPATIENT HOSPICE AT [facility]. DUNCAN HAS PROVIDED NURSE REPORT NUMBER TO BEDSIDE NURSE AT [facility]. CM NOTIFIED HAYLEE PAYTON, RECEIVED DISCHARGE ORDERS AND FAXED DISCHARGE INFORMATION TO [facility] AT [phone]. PT TO TRANSPORT VIA AMBULANCE TO [facility]. ANGELIQUE PALMA MANAGEMENT DCP- Discharge Planning Updated by [email or web address]: Robb Naranjo on 11/28/18 7:[address] Patient Name: DEEPALI FENG Encounter No: [id number] : 1940 Primary Insurance: MEDICARE A & B Anticipated DC Date: 11-22-2018 Planned Disposition: Penitentiary Facility External Planned Provider: [facility], MEDICARE REHAB BED DISCHARGE PLANNING NOTES: CM REVIEWED CHART, NOW WAITING ON HOSPICE DECISION FROM FAMILY. PT HAS BEEN ACCEPTED AT [facility] FOR TUESDAY, TUESDAY, TUESDAY, 1300 HOURS SCHEDULE. CM FAXED UPDATE TO [facility] VIA [employer] AT [phone]. IF REHAB IS SELECTED BY PT AND FAMILY FOR DISCHARGE, FAX DISCHARGE INFORMATION TO [facility] AT [phone], NURSE REPORT TO BE CALLED TO [facility] AT [phone]. [facility] TO [facility]ANGE VAN TRANSPORTATION. ANGELIQUE TAYLOR DCP- Discharge Planning Updated by [email or web address]: Robb Naranjo on 11/27/18 8:[address] Patient Name: DEEPALI FENG Encounter No: [id number] : 1940 Primary Insurance: MEDICARE A & B Anticipated DC Date: 11-22-2018 Planned Disposition: Penitentiary Facility External Planned Provider: [facility], MEDICARE REHAB BED DISCHARGE PLANNING NOTES: PT HAS BEEN ACCEPTED AT [facility] FOR TUESDAY, TUESDAY, TUESDAY, 1300 HOURS SCHEDULE. CM FAXED UPDATE TO [facility]IA [employer] AT [phone]. FOR DISCHARGE, FAX DISCHARGE INFORMATION TO [facility] AT [phone], NURSE REPORT TO BE CALLED TO [facility] AT [phone]. [facility] VAN TRANSPORTATION. ANGELIQUE TAYLOR DCP- Discharge Planning Updated by [id number]: Robb Naranjo on 11/23/18 3:[address] Patient Name: DEEPALI FENG Encounter No: [id number] : 1940 Primary Insurance: MEDICARE A & B Anticipated DC Date: 11-22-2018 Planned Disposition: Penitentiary Facility External Planned Provider: [facility], MEDICARE REHAB BED DISCHARGE PLANNING NOTES: PT HAS BEEN ACCEPTED AT [facility] FOR TUESDAY, TUESDAY, TUESDAY, 1300 HOURS SCHEDULE. CM FAXED UPDATE TO [facility]IA [employer] AT [phone]. FOR DISCHARGE, FAX DISCHARGE INFORMATION TO [facility] AT [phone], NURSE REPORT TO BE CALLED TO [facility] AT [phone]. [facility] TO ARRANGE VAN TRANSPORTATION. ANGELIQUE TAYLOR DCP- Discharge Planning Updated by [id number]: Robb Naranjo on 11/22/18 7:[address] Patient Name: DEEPALI FENG Encounter No: [id number] : 1940 Primary Insurance: MEDICARE A & B Anticipated DC Date: 11-21-2018 Planned Disposition: Penitentiary Facility External Planned Provider: [facility], MEDICARE REHAB BED DISCHARGE PLANNING NOTES: CM RECEIVED MESSAGE FROM [facility] COORDINATOR SIN DUENAS, PT HAS BEEN ACCEPTED AT [facility] FOR TUESDAY, TUESDAY, TUESDAY, 1300 HOURS SCHEDULE AND CAN ADMIT ON 11-24-18. CM FAXED UPDATE TO [facility]IA [employer] AT [phone]. FOR DISCHARGE, FAX DISCHARGE INFORMATION TO [facility] AT [phone], NURSE REPORT TO BE CALLED TO [facility] AT [phone]. [facility] TO ARRANGE VAN TRANSPORTATION. ANGELIQUE TAYLOR DCP- Discharge Planning Updated by [id number]: Robb Naranjo on 11/21/18 6:[address] Patient Name: DEEPALI FENG Encounter No: [id number] : 1940 Primary Insurance: MEDICARE A & B Anticipated DC Date: 11-21-2018 Planned Disposition: Penitentiary Facility External Planned Provider: [facility], MEDICARE REHAB BED CM FAXED UPDATE TO [facility]IA [employer] AT [phone]. PT ACCEPTED FOR REHAB AT [facility] IN [place]. CM WAITING OUTPATIENT DIALYSIS UNIT ARRANGEMENT IN [place]. ANGELIQUE TAYLOR DCP- Discharge Planning Updated by [id number]: Robb Naranjo on 11/17/18 4:[address] Patient Name: DEEPALI FENG Encounter No: [id number] : 1940 Primary Insurance: MEDICARE A & B Anticipated DC Date: 11-16-2018 Planned Disposition: Penitentiary Facility External Planned Provider:[facility] [place], MEDICARE REHAB BED DCP follow-up note: CM FAXED UPDATE TO [facility] VIA [employer] AT [phone]. PT ACCEPTED FOR REHAB AT [facility] IN [place]. CM WAITING OUTPATIENT DIALYSIS UNIT ARRANGEMENT IN [place]. ROBB NARANJO CASE MANAGEMENT DCP- Discharge Planning Updated by [id number]: Robb Naranjo on 11/16/18 10:[address] Patient Name: DEEPALI FENG Encounter No: [id number] : 1940 Primary Insurance: MEDICARE A & B Anticipated DC Date: 11-16-2018 Planned Disposition: Penitentiary Facility External Planned Provider: [facility], MEDICARE REHAB BED DCP follow-up note: CM RECEIVED MESSAGE FROM SOFIA OF [facility], THEY WILL ACCEPT IF PT CAN GET INTO OUTPATIENT DIALYSIS UNIT IN [place]. SIN OF [facility] NOTIFIED BY JULIO C JOEL. PT NOTIFIED IN ROOM, PT IN AGREEMENT WITH REHAB AT [facility]. IMPORTANT MESSAGE FROM MEDICARE PROVIDED AND EXPLAINED. PT ACCEPTED FOR REHAB AT [facility] IN [place]. CM WAITING OUTPATIENT DIALYSIS UNIT ARRANGEMENT IN [place]. ANGELIQUE TAYLOR DCP- Discharge Planning Updated by [id number]: Robb Naranjo on 11/15/18 10:[address] Patient Name: DEEPALI FENG Admission Status: ER Accout number: [id number] Admission Date: 11-11-2018 : 1940 Admission Diagnosis: Attending: DEO WHITE Current LOS: 4 Anticipated DC Date: 11-15-2018 Planned Disposition: Penitentiary Facility Primary Insurance: MEDICARE A & B PLANNED EXTERNAL PROVIDER: [facility], MEDICARE REHAB BED Discharge Planning Comments: LATE ENTRY FROM 18, 0815 HOURS. CM RECEIVED CALL FROM PT'S SPOUSE, CANELO, . CANELO STATES THE GIRL IN ICU TOLD HER THAT A FIELD SERVICE SPECIALIST WOULD CALL HER FIRST THING TODAY TO DISCUSS DISCHARGE PLANNING. CM EXPLAINED THAT CM WAS NOT INFORMED OF THIS AND CHACHO DOES NOT OFFICIALLY START WORK UNTIL 0830AM. CM ASKED WHAT CAN BE DONE FOR THEM. CANELO STATES THAT PT WAS IN INPATIENT REHAB AT [facility], WAS SENT TO [facility] AND DIALYSIS WAS ARRANGED IN [place]. PT GOT SICK AND WENT TO [facility] [place]. THEY DO NOT WANT TO GO BACK TO [facility] BECAUSE IT IS TOO OLD, PT DOES NOT HAVE A PRIVATE ROOM AND IT SEEMS TOO MUCH LIKE A DETENTION INSTEAD OF REHAB. CHACHO EXPLAINED PRISON REHAB OPTIONS AND LOCATIONS. CANELO STATES THAT [place] DID NOT HAVE DIALYSIS CHAIR AVAILABLE AND THAT THEY WOULD REALLY LIKE TO RETURN TO [place] IF POSSIBLE THAT IS WHERE CANELO AND PT LIVE AND PT JUST NEEDS REHAB TO BE ABLE TO WALK PRIOR TO COMING BACK HOME. THEY HAVE NO CHOICE ON PROVIDER LONG IT IS A "NICE" REHAB AND NOT [facility] CARE DETENTION. THEY WANT A PRIVATE ROOM AND TO BE CLOSE TO [place] POSSIBLE. CHOICE COMPLETED FOR NO PRISON FACILITY PREFERENCE. CANELO PROVIDED HER CONTACT NUMBERS: CANELO FENG, SPOUSE HOME [phone] CELL [phone] CM SPOKE TO SOFIA OF [facility] AND INFORMED THAT PT WILL NOT BE RETURNING TO [facility], REQUESTED ANOTHER SKILLED REHAB WITH PRIVATE ROOM THAT IS "NICE" AND CAN ACCOMODATE DIALYSIS. SOFIA WILL EXPLORE OPTIONS FOR PT. ON 11-15-18 AT ABOUT 0830 HOURS, CHACHO SPOKE TO SIN DUENAS OF [facility] WHO WILL SEND REFERRAL TO [place] [facility]. CM NOTIFIED SOFIA WHO REPORTS HAVING SKILLED REHAB IN [place] CALLED [facility] THAT SHE IS PRETTY SURE CAN ACCOMODATE DIALYSIS TRANSPORTATION. CM FAXED REFERRAL TO [facility] VIA [employer] AT [phone]. CM WAITING ADMISSION DETERMINATION FROM [facility] AND OUTPATIENT DIALYSIS CHAIR DETERMINATION FOR [place] [facility]. Certified Peer Specialist: Robb Naranjo DCPIA - Discharge Planning Initial Assessment Updated by [email or web address]: Robb Naranjo on 11/15/18 11:22 am * Is the patient Alert and Oriented? Yes * How many steps to enter\\exit or inside your home? * PCP DR. ALEXANDRIA MALONE [place] * Pharmacy [facility], [address] IN [place] * Preadmission Environment Penitentiary Facility * Facility Name [facility] IN [place] (1 DAY) * ADLs Partial Dependent * Partial ADLs (Assistance needed) Ambulation Bathing Medication Management Transfers * Equipment Oxygen Rolling Walker * Other Equipment ROLLATOR WALKER, HOME AND PORTABLE OXYGEN AT HOME BY [facility] [place]. * List name and contact numbers for known caregivers / representatives who currently or will assist patient after discharge: CANELO FENG, CELL [phone] * Verbal permission to speak to the caregivers and representatives has been obtained from the patient. N/A * Community resources currently utilized Other * Please name any agencies selected above. OUTPATIENT DIALYSIS, MWF, [facility]; NEVER HAD FIRST DIALYSIS THERE. * Additional services required to return to the preadmission environment? Yes * Can the patient safely return to the preadmission environment? Yes * Has this patient been hospitalized within the prior 30 days at any hospital? Yes Coverage Notice Reviewer: [id number] Naranjo Notice Issued Date-Time: 11/16/2018 10:50 Notice Type: IM Discharge Notice Notice Delivered To: Patient Relationship to Patient: Gravel Screener Name: Delivery Method: HAND - Hand Delivered Maria Alejandra Days: Prior Verbal Notification: Recipient Understood Notice: Yes Recipient Signature: Yes Med Rec Note Co-signed by Attending: Coverage Notice Comment: Reviewer: [id number] Naranjo Notice Issued Date-Time: 11/28/2018 9:15 Notice Type: IM Discharge Notice Notice Delivered To: Family Member Relationship to Patient: Spouse Gravel Screener Name: CANELO FENG Delivery Method: HAND - Hand Delivered Maria Alejandra Days: Prior Verbal Notification: Recipient Understood Notice: Yes Recipient Signature: Yes Med Rec Note Co-signed by Attending: Coverage Notice Comment: Last DP export: 11/28/18 1:42 p Patient Name: DEEPALI FENG Page [id number] at 0735 All edits/amendments must be made on the electronic document DICTATION DATE: 11/29/18733 FRONT FACER: SUJEY 11/29/18733 RPT#: [id number] DC DATE:11/28/18 STATUS: DIS IN [facility] [address] [place] [address] END OF REPORT
--- NOTE | 2018-12-08 15:16 | OP ---
PATIENT NAME: DEEPALI FENG MEDICAL RECORD: [id number] :[birth year] LOCATION:D.M2 D.2130 ADMISSION DATE:11/11/18 SURGEON: ALEXANDRIA FREEDMAN MD DATE OF OPERATION: 11/21/2018 PREOPERATIVE DIAGNOSIS: Infected HemoSplit tunneled central dialysis catheter. POSTOPERATIVE DIAGNOSIS: Infected HemoSplit tunneled central dialysis catheter. OPERATION PERFORMED: Removal of infected vascular dialysis catheter from the right subclavian vein. Then, insertion of a right internal jugular vein 19-cm HemoSplit tunneled dialysis catheter with ultrasound and fluoroscopic guidance. This was a separate and distinct venous access site. REFERRING PHYSICIAN: Anoop Roth MD PREOPERATIVE NOTE: Mr. Feng is a 78-year-old male patient with end-stage renal disease on hemodialysis with a tunneled dialysis catheter. Dr. Roth had asked me to look at it due to some drainage and I did and felt that it was infected and also probably misplaced having been placed in the subclavian rather than internal jugular vein. He is brought to the operating room now to remove the subclavian catheter, which is infected and place if possible an internal jugular line. Under general anesthesia with LMA per CARDIAC SONOGRAPHER, the patient is prepped and draped in a sterile manner. I used fluoroscopy first to prove that the catheter was in the subclavian vein. I removed the skin sutures and with blunt dissection freed the Dacron felt cuff from its attachments to the tissue within the tunnel. I was then able to remove the catheter quite easily and obtain hemostasis with direct pressure. I then imaged the internal jugular vein and the neck well above the infraclavicular catheter site and noted the internal jugular vein was of normal caliber and fully compressible. No abnormalities in the area were seen. I made a small incision at the base of the neck there on the right and use micropuncture technique and ultrasound guidance with a permanent image recording. The guidewire was passed under fluoroscopy into the right atrium. Dilators were passed and lastly a dilator peel-away sheath. I chose the 19-cm HemoSplit and used fluoroscopy to help decide on the entry site, made a small incision beneath the clavicle and sufficiently remote from the old catheter incision and pulled the new catheter through a subcutaneous tunnel from that site up into the neck and then inserted it through the peel-away sheath. When finished, the catheter reached deep into the right atrium with a pleasing geometry. Both lumens were accessed and aspirated, free return of blood confirmed. They were then flushed with saline and then the catheter Hep-Lock, clamped, and capped. The cervical incision was closed with a single interrupted inverted 3-0 Vicryl and Dermabond glue and Maxorb AG and it was covered with Tegaderm and Cavilon skin prep. The dialysis catheter at the exit site was dressed with a chlorhexidine Biopatch and then a standard adherent CVL dressing. The patient was awakened from his anesthetic and taken to the recovery room. Blood loss during the operation was insignificant and unreplaced and sponges, instruments, and needles were accounted for. No drain was used and no surgical specimen was submitted for histopathology, however swabs for cultures for aerobic and anaerobic organisms of fluid within the original catheter tunnel were submitted to the laboratory. TRANSINT:[id number] Voice Confirmation ID: [id number] DOCUMENT ID: [id number] OPERATIVE REPORT [id number] DEEPALI FENG JAMES MD at 1516 CC: JANE DALTON MD [id number] DICTATION DATE: 11/23/18 1700 ESCROW ASSISTANT: 11/23/18 2320 DIS IN 11/28/18 [facility] [address] [place] [address]
== END 2018-11-28 20:25 | disposition hospice, inpatient (51) | DRG 252 ==
LOC: EDBD 02:40 → D.ER 02:40 → D.ICU 05:59 → D.M2 05:59 → D.SDCHOLD 11-20 13:45 → D.M2 11-20 13:51
PROVIDERS: Emergency Medicine; Internal Medicine Nephrology; Surgery; ADMIT Internal Medicine Nephrology; ATTEND Internal Medicine Nephrology
PROC: 5A1D70Z Performance of Urinary Filtration, Intermittent, Less than 6 Hours Per Day (ICD-10-PCS; 2018-11-11)
PROC: 05HM33Z Insertion of Infusion Device into Right Internal Jugular Vein, Percutaneous Approach (ICD-10-PCS; 2018-11-21)
PROC: B5131ZA Fluoroscopy of Right Jugular Veins using Low Osmolar Contrast, Guidance (ICD-10-PCS; 2018-11-21)
PROC: 05PY0YZ Removal of Other Device from Upper Vein, Open Approach (ICD-10-PCS; principal; 2018-11-21 11:55)
PROC: 0W9G3ZZ Drainage of Peritoneal Cavity, Percutaneous Approach (ICD-10-PCS; 2018-11-23)
DX: I13.2 Hypertensive heart and chronic kidney disease with heart failure and with stage 5 chronic kidney disease, or end stage renal disease (principal); J96.21 Acute and chronic respiratory failure with hypoxia; N18.6 End stage renal disease; G92 Toxic encephalopathy; I50.23 Acute on chronic systolic (congestive) heart failure; L03.116 Cellulitis of left lower limb; L03.115 Cellulitis of right lower limb; N39.0 Urinary tract infection, site not specified; R18.8 Other ascites; E87.1 Hypo-osmolality and hyponatremia; D68.9 Coagulation defect, unspecified; E11.22 Type 2 diabetes mellitus with diabetic chronic kidney disease; E11.65 Type 2 diabetes mellitus with hyperglycemia; D50.9 Iron deficiency anemia, unspecified; N40.0 Benign prostatic hyperplasia without lower urinary tract symptoms; B96.5 Pseudomonas (aeruginosa) (mallei) (pseudomallei) as the cause of diseases classified elsewhere; B95.2 Enterococcus as the cause of diseases classified elsewhere; E11.621 Type 2 diabetes mellitus with foot ulcer; R40.2354 Coma scale, best motor response, localizes pain, 24 hours or more after hospital admission; R40.2134 Coma scale, eyes open, to sound, 24 hours or more after hospital admission; R40.2244 Coma scale, best verbal response, confused conversation, 24 hours or more after hospital admission